=== PATIENT | male | born 1980 | race Two or more races ===

== ENCOUNTER 2024-08-22 18:40 | Inpatient (IN) | payer OTHER ==
[~2024-08-22] VITALS: Ht 172.7 cm; Wt 100.0 kg
[2024-08-22 00:04] VITALS: BP 144/84; PULSE 101; RESP 18; TEMP 102.1; O2SAT 96
--- NOTE | 2024-08-22 18:50 | ED.PDOC ---
History of Present Illness HPI Comments 44-year-old male who comes in with chief complaint of pneumonia. The patient was transferred from [facility]. The patient has a history of being diagnosed with pneumonia times approximately two weeks ago. The patient was then placed on doxycycline and Levaquin. The patient had his blood work done and on 08/11 his white blood cell count was approximately [address]. The patient continued to worsen and so the patient went back in to the emergency department's for evaluation. At that time, the patient's white blood cell [place] [address]. In the emergency department's, the patient had some more blood work done and had an elevated D-dimer. A chest x-ray showed that the patient had bilateral pleural effusions but there was a concern that the patient may have had a PE. The patient had a CT scan done of the chest to rule out PE which indicated that the patient indeed has a pleural effusion but also has what seems to be an empyema. The patient was complaining of right-sided sharp chest pain. The patient also had a COVID test as well as influenza a and B done which were negative. The patient also did an RSV which was negative. Upon arrival, the patient was still having a significant dry cough as well as pain on his chest. Time Seen by MD: 18:45 Reviewed Notes: Nurses Notes, Vice President Supply Chain Notes, Medications, Allergies (Allergies to codeine and penicillin) Allergies: Coded Allergies: Codeine (Verified Allergy, Unknown, 08/22/24) Penicillins (Verified Allergy, Unknown, 08/22/24) Information Source: Patient, Emergency Med Personnel Mode of Arrival: EMS Severity: Moderate Timing: Weeks (Symptoms started a couple of weeks ago.) Duration: Since onset Prehospital treatment: 12 Lead EKG, Ror Engineer, IVF Associated signs and symptoms Associated cough with the shortness a breath and right-sided chest pain Past Medical History PAST MEDICAL HISTORY: HTN, Kidney Stones, Denies Surgical History (Other): Left knee surgery, vasectomy Family History Family History: Family hx of DM, Family hx of Cancer (There was a day is it ulcer is what is three for), Family hx of heart sunil (In his) Social History Smoker: Non-Smoker Alcohol: Occasionally Drugs: Denies Drug Use Lives In: Home Constitutional: denies: chills, diaphoresis, fatigue, fever, malaise, sweats, weakness, others EENTM: denies: blurred vision, double vision, ear bleeding, ear discharge, ear drainage, ear pain, ear ringing, eye pain, eye redness, hearing loss, mouth pain, mouth swelling, nasal discharge, nose bleeding, nose congestion, nose pain, photophobia, tearing, throat pain, throat swelling, voice changes, others Respiratory: reports: cough, shortness of breath; denies: hemoptysis, orthopnea, SOB at rest, SOB with excertion, stridor, wheezing, others Cardiovascular: reports: chest pain; denies: dizzy spells, diaphoresis, Dyspnea on exertion, edema, irregular heart beat, left arm pain, lightheadedness, palpitations, PND, syncope, others Gastrointestinal: denies: abdomen distended, abdominal pain, blood streaked grant wels, constipated, diarrhea, dysphagia, difficulty swallowing, hematemesis, melena, nausea, poor appetite, poor fluid intake, rectal bleeding, rectal pain, vomiting, others Genitourinary: denies: burning, dysuria, flank pain, frequency, hematuria, incontinence, penile discharge, penile sore, pain, testicle pain, testicle swelling, urgency, others Neurological: denies: dizziness, fainting, headache, left sided numbness, left sided weakness, numbness, paresthesia, pre-existing deficit, right sided numbness, right sided weakness, seizure, speech problems, tingling, tremors, weakness, others Musculoskeletal: denies: back pain, gout, joint pain, joint swelling, muscle pain, muscle stiffness, neck pain, others Integumetry: denies: bruises, change in color, change in hair/nails, dryness, laceration, lesions, lumps, rash, wounds, others Allergic/Immunocompromised: denies: Difficulty Healing, Frequent Infections, Hives, Itching, others Hematologic/Lymphatic: denies: anemia, blood clots, easy bleeding, easy bruisin g, swollen glands, others Endocrine: denies: excessive hunger, excessive sweating, excessive thirst, excessive urination, flushing, intolerance to cold, intolerance to heat, unexplained weight gain, unexplained weight loss, others Psychiatric: denies: anxiety, bipolar disorder, depression, hopeless, panic disorder, schizophrenia, sleepless, suicidal, others Physical Exam General Appearance: Moderate Distress HEENT: Normal ENT Inspection, Pharynx Normal, TMs Normal Neck: Full Range of Motion, Non-Tender, Normal, Normal Inspection Respiratory: Chest Non-Tender, Decreased Breath Sounds, No Accessory Muscle Use, Respiratory Distress Cardiovascular: No Edema, No JVD, No Murmur, No Gallop, Tachycardia Breast Exam: Deferred Gastrointestinal: No Organomegaly, Non Tender, No Pulsatile Mass, Normal Bowel Sounds, Soft Genitalia: Deferred Pelvic: Deferred Rectal: Deferred Extremities: No calf tenderness, Normal capillary refill, No pedal edema Musculoskeletal : Apperance: Normal Neurologic: Alert, injection moulding machine operator II-XII nml as Tested, Motor Weakness, Normal Affect, Nor mal Mood, No Sensory Deficits Cerebellar Function: Normal Reflexes: Normal Skin: Dry, Normal Color, Warm Lymphatic: No Adenopathy Was a procedure done? Was a procedure done?: No Differential Dx Considerations may include: Empyema, pneumonia, PE X-Ray, Labs, Meds, VS Vital Signs Date Time Temp Pulse Resp B/P (MAP) Pulse Ox O2 Delivery O2 Flow Rate FiO2 08/22/24 19:01 89 08/22/24 19:00 98.7 87 18 134/78 (96) 96 At this time, the patient is being admitted. An IV Hep-Lock was established. Images Reviewed?: Images reviewed and evaluated by me Time of 1ST Reevaluation: 20:17 Reevaluation 1ST: Unchanged Patient Education/Counseling: Diagnosis, Treatment, Prognosis Family Education/Counseling: No Family Present Departure 1 Departure Time of Disposition: 20:17 Impression: Primary Impression: Empyema Additional Impression: Acute respiratory failure Qualified Codes: J96.01 - Acute respiratory failure with hypoxia Disposition: 09 ADMITTED INPATIENT Admit to: Tele (So the waist IV Lasix and we are going to put down in the ICU then) Condition: Fair Critical Care Note Critical Care Time?: Yes (35 min-critical care time only) Stability Stability form required: Yes Unstable for transfer: Telemetry monitoring (Telemetry monitoring required), ED Physician Assesment (Clinical assesment) Heart Score Heart Score: Heart Score Response (Comments) Value History N/A 0 EKG N/A 0 Age N/A 0 Risk Factors N/A 0 Troponin N/A 0 Total 0 MICHAEL HEARN MD Aug 22, 2024 18:50
[2024-08-22 19:20] VITALS: PULSE 21; RESP 21; O2SAT 91
[2024-08-22 20:00] VITALS: PULSE 73; PULSE 96; RESP 18; O2SAT 96
[2024-08-22 21:05] LABS: Urine Bacteria None Seen /hpf (None Seen)
[2024-08-22 21:15] LABS: Urine Blood Negative /uL (Negative); Urine Clarity Clear (Clear); Urine Color Light-Yellow (Yellow); Urine Protein, UAD Negative (Negative); Urine Specific Gravity 1.042 (1.001-1.035); Urine Urobilinogen Normal (Negative); Urine WBC <1 /hpf (0 - 3); Urine pH 5.5 (5.0-9.0)
[2024-08-22] MEDS ORDERED: VANCOMYCIN PER PHARMACY 0 MG IV SCH (21:45)
[2024-08-22] MEDS ORDERED: NITROGLYCERIN 0.4 MG SL TAB SL PRN (21:45)
[2024-08-22] MEDS ORDERED: ONDANSETRON HCL 4 MG/2 ML VIAL IV PRN (21:45)
[2024-08-22] MEDS ORDERED: TEMAZEPAM 15 MG CAP PO PRN (21:45)
[2024-08-22 21:46] LABS: Basophils # (auto) 0 10 ^3/uL (0-0.2); Basophils % (auto) 0.1 % (0.0-2.0); Eosinophils # (auto) 0.1 10 ^3/uL (0-0.8); Eosinophils % (auto) 0.5 % (0.0-7.0); Hematocrit 36.9 % (41.0-53.0); Hemoglobin 12.4 g/dL (13.5-17.5); Lymphocytes # (auto) 1.7 10 ^3/uL (0.4-5.4); Lymphocytes % (auto) 8.4 % (10.0-50.0); Mean Corpuscular Hemoglobin 30.7 pg (28.0-32.0); Mean Corpuscular Hgb Conc. 33.7 g/dL (32.0-36.0); Mean Corpuscular Volume 91.2 fL (80.0-100.0); Monocytes # (auto) 1.5 10 ^3/uL (0-1.3); Monocytes % (auto) 7.2 % (0.0-12.0); Neutrophils # (auto) 17.3 10 ^3/uL (1.6-8.6); Neutrophils % (auto) 83.8 % (37.0-80.0); Platelet Count (auto) 180 10^3/uL (140-450); Red Blood Cells 4.04 10^6/uL (4.5-5.90); Red Cell Distribution Width 13.4 % (11.8-14.3); White Blood Cell 20.7 10^3/uL (4.4-10.8)
[2024-08-22 22:27] VITALS: BP 145/87; PULSE 106; RESP 19; TEMP 99.4; O2SAT 95
[2024-08-22] MEDS: IPRATROPIUM BROM 0.5 MG/2.5ML INH SOL ONE (22:27)
[2024-08-22] MEDS: ALBUTEROL SULF 2.5 MG/0.5ML(0.5%) NEB SOLN ONE (22:27)
[2024-08-22 22:28] VITALS: O2SAT 95
[2024-08-22 22:36] LABS: Alanine Aminotransferase 45 U/L (7-40); Albumin 3.9 g/dL (3.2-4.8); Alkaline Phosphatase 205 U/L (46-116); Anion Gap 8 (5-15); Aspartate Aminotransferase 22 U/L (13-40); BUN/Creatinine Ratio 9.2 (10.0-20.0); Blood Urea Nitrogen 10 mg/dL (9-23); Calcium 9.7 mg/dL (8.7-10.4); Carbon Dioxide 22 mmol/L (20-31); Chloride 103 mmol/L (98-107); Glucose 91 mg/dL (74-106); Sodium 133 mmol/L (136-145)
[2024-08-22 22:37] LABS: Bilirubin, Total 0.6 mg/dL (0.2-1.0); Total Protein 7.5 g/dL (5.7-8.2)
[2024-08-22] MEDS: levoFLOXacin 500MG 100 ML IV ONE (23:08)
--- NOTE | 2024-08-22 23:56 | DVHINCON2 ---
Date of service: Aug 22, 2024 Referring Physician FREDDY Coronado Reason for Consultation Respiratory distress. History of Present Illness 44-year-old man history of hypertension, nephrolithiasis who presented with a chief complaint of pneumonia. He was transferred from [facility]. He was recently diagnosed with pneumonia two weeks ago. Patient was placed on antibiotics. He had blood work performed that demonstrated leukocytosis. His symptoms began to worsen severe return to emergency department for evaluation. His white count climbed to 21 K. he was found to have an elevated D-dimer. Chest x-ray was notable for pleural effusions. Concern for PE. CT chest was performed that demonstrated no acute pulmonary embolism. Demonstrated pleural effusion. It appeared to be an empyema. COVID, influenza were negative. RSV was also negative. Pulmonary consultation is called for large right pleural effusion. Review of systems: 14 point review of systems is negative unless otherwise noted above. Past medical history: Hypertension, nephrolithiasis, Past surgical history: Left knee surgery, vasectomy Medications: Reviewed Allergies: Codeine, iron, penicillins Family history: No family history of premature CAD. No family history of lung disease Family history notable for cancer. Family history of heart disease. Social history: Nonsmoker. Social alcohol use. No illicit drug use. Lives at home. Allergies: Coded Allergies: Iron (Verified Allergy, Severe, 08/22/24) Codeine (Verified Allergy, Unknown, 08/22/24) Penicillins (Verified Allergy, Unknown, 08/22/24) Home Meds Reported Medications Celecoxib (Celebrex) 100 Mg Cap, 100 MG PO PRN for 30 Days, MG 08/23/24 Sertraline HCl (Sertraline Hydrochloride) 100 Mg Tab, 100 MG PO DAILY, TAB 08/23/24 Amphetamine-Dextroamphetamine (Adderall) 20 Mg Tab, 1 TAB PO DAILY, #30 TAB 08/23/24 Losartan Potassium (Losartan Potassium) 50 Mg Tab, 50 MG PO DAILY for 30 Days, MG 08/23/24 Current Medications Current Medications Medications (Trade) Dose Ordered Sig/Marisol Route PRN Reason Start Time Stop Time Status Last Admin Levofloxacin/ Dextrose 100 ml @ 100 mls/hr DAILY IV 08/23/24 10:00 UNV Vancomycin HCl 0 ml @ 0 mls/hr UD IV 08/22/24 21:45 UNV Albuterol (Ventolin Medneb) 2.5 mg Q6HPRN PRN NEB SHORTNESS OF BREATH 08/22/24 21:45 Ipratropium [place] (Atrovent Medneb) 0.5 mg Q6HPRN PRN NEB SHORTNESS OF BREATH 08/22/24 21:45 Guaifenesin/ Dextromethorphan (Robitussin-Dm Liquid) 10 ml Q4HP PRN PO FOR COUGH 08/22/24 21:45 Temazepam (Restoril) 15 mg QHSP PRN PO FOR INSOMNIA 08/22/24 21:45 Ondansetron HCl (Zofran) 4 mg Q4HP PRN IV NAUSEA / VOMITING 08/22/24 21:45 Acetaminophen (Tylenol Tablet) 650 mg Q6HP PRN PO PAIN SCALE 1-3 OR TEMP>100.4 08/22/24 21:45 Nitroglycerin (Ntrostat Sublingual) 0.4 mg Q5MINP PRN SL FOR CHEST PAIN 08/22/24 21:45 Morphine Sulfate 2 mg Q30M PRN IV FOR CHEST PAIN 08/22/24 21:45 UNV Vital Signs Vital Signs Date Time Temp Pulse Resp B/P (MAP) Pulse Ox O2 Delivery O2 Flow Rate FiO2 08/22/24 23:11 103 19 133/85 (101) 94 08/22/24 22:30 Nasal Cannula* 2 28 08/22/24 22:27 99.4 99.4 Physical Exam Gen.: Patient lying in bed in no apparent distress. On supplemental oxygen. He is breathing comfortably on room air. Head: Normocephalic, atraumatic Eyes: EOMI/PERRLA. Ears: Normal hearing. Normal anatomy. Neck/trachea: Trachea midline, supple. Nose: Normal external anatomy. Mouth: Moist mucous membranes. Chest: Decreased air entry bilaterally. No wheezing or rhonchi. Cardio vascular: Positive S1, positive S2. Regular rate and rhythm. Abdomen: Positive bowel sounds in all 4 quadrants. Soft, non-tender, non- distended. : Deferred. Rectal: Deferred Skin: Warm, dry. Extremities: 2+ radial pulses bilaterally. No lower extremity edema. Neuro: Awake, alert, oriented x3. No gross motor or sensory deficits. Cranial nerves II through XII intact. Gait not assessed. Labs/Diagnostic Data Labs Test 08/22/24 21:19 08/22/24 21:04 Range/Units White Blood Count 20.7 H 4.4-10.8 10^3/uL Red Blood Count 4.04 L 4.5-5.90 10^6/uL Hemoglobin 12.4 L 13.5-17.5 g/dL Hematocrit 36.9 L 41.0-53.0 % Mean Corpuscular Volume 91.2 80.0-100.0 fL Mean Corpuscular Hemoglobin 30.7 28.0-32.0 pg Mean Corpuscular Hemoglobin Concent 33.7 32.0-36.0 g/dL Red Cell Distribution Width 13.4 11.8-14.3 % Platelet Count 180 140-450 10^3/uL Mean Platelet Volume 6.8 L 6.9-10.8 fL Neutrophils (%) (Auto) 83.8 H 37.0-80.0 % Lymphocytes (%) (Auto) 8.4 L 10.0-50.0 % Monocytes (%) (Auto) 7.2 0.0-12.0 % Eosinophils (%) (Auto) 0.5 0.0-7.0 % Basophils (%) (Auto) 0.1 0.0-2.0 % Neutrophils # (Auto) 17.3 H 1.6-8.6 10 ^3/uL Lymphocytes # (Auto) 1.7 0.4-5.4 10 ^3/uL Monocytes # (Auto) 1.5 H 0-1.3 10 ^3/uL Eosinophils # (Auto) 0.1 0-0.8 10 ^3/uL Basophils # (Auto) 0 0-0.2 10 ^3/uL Nucleated Red Blood Cells 0.0 % Sodium Level 133 L 136-145 mmol/L Potassium Level 4.0 3.5-5.1 mmol/L Chloride Level 103 98-107 mmol/L Carbon Dioxide Level 22 20-31 mmol/L Anion Gap 8 5-15 Blood Urea Nitrogen 10 9-23 mg/dL Creatinine 1.09 0.700-1.30 mg/dL Glomerular Filtration Rate Calc 85 >90 mL/min BUN/Creatinine Ratio 9.2 L 10.0-20.0 Serum Glucose 91 74-106 mg/dL Lactic Acid Level 1.5 0.4-2.0 mmol/L Calcium Level 9.7 8.7-10.4 mg/dL Total Bilirubin 0.6 0.2-1.0 mg/dL Aspartate Amino Transferase (AST) 22 13-40 U/L Alanine Aminotransferase (ALT) 45 H 7-40 U/L Alkaline Phosphatase 205 H 46-116 U/L Troponin I High Sensitivity 5 </=54 ng/L B-Type Natriuretic Peptide 13.88 0-100 pg/mL Total Protein 7.5 5.7-8.2 g/dL Albumin 3.9 3.2-4.8 g/dL Urine Color Light-yellow Yellow Urine Clarity Clear Clear Urine pH 5.5 5.0-9.0 Urine Specific [place] 1.042 H 1.001-1.035 Urine Protein Negative Negative Urine Ketones Negative Negative Urine Blood Negative Negative /uL Urine Nitrite Negative Negative Urine Bilirubin Negative Negative Urine Urobilinogen Normal Negative mg/dL Urine Leukocyte Esterase Negative Negative /uL Urine RBC 1 0 - 3 /hpf Urine WBC <1 0 - 3 /hpf Urine Squamous Epithelial Cells Few <5 /hpf Urine Bacteria None seen None Seen /hpf Urine Glucose Normal Normal mg/dL Assessment Impression: Dyspnea secondary to large right pleural effusion Large right pleural effusion Possible empyema Leukocytosis Pneumonia Obesity with a BMI of 33.8 Plan: Recommend small bore chest tube placement. Consult Interventional Radiology for chest tube placement. Send fluid for cultures and cytology. Send for cell count and differential, LDH, pH, glucose, total protein Consider TPase course once chest tube is in place vs Surgical consultation for decortication. Supplemental oxygen on 2 liters/minute via nasal cannula keep O2 saturation above 92%. Antitussives Antibiotics F/u cultures. Monitor renal function Monitor electrolytes Supplement as necessary. Diet and lifestyle modifications for weight reduction given obesity DVT prophylaxis Prognosis: Guarded given multiple comorbidities. Rest of plan per hospitalist and other consultants. Thank you FREDDY Coronado for allowing me to participate in this patient's care. Further recommendations will depend on patient's clinical course. Please do not hesitate to contact me if you have any questions or concerns. This medical document was created using an electronic medical record system with [employer] system. Although this document has been carefully reviewed, there may still be some phonetic and typographical errors. These areas are purely typographical due to imperfections of the software programs, and do not reflect any compromise in the patient's medical care. Plan discussed with: Patient, Other (RN, LOG CUT OFF SAWYER) CARRASQUILLO,AMADOU M MD Aug 22, 2024 23:56
[2024-08-23] VITALS (13 sets, daily range): BP systolic 113–144; BP diastolic 60–84; PULSE 73–102; RESP 16–22; TEMP 97.7–100.8; O2SAT 96–98
[2024-08-23] MEDS: guaiFENesin-DM 100/10mg/5ml SYR PO PRN (00:07)
[2024-08-23] MEDS: ACETAMINOPHEN 325 MG TAB PO PRN (00:19)
[2024-08-23] MEDS ORDERED: LOSA-534 PO (01:17)
[2024-08-23] MEDS ORDERED: SERT-377 PO (01:19)
[2024-08-23] MEDS ORDERED: AMPH20TA2 PO (01:19)
[2024-08-23] MEDS ORDERED: CELE100C82 PO (01:19)
[2024-08-23] MEDS: VANCOMYCIN 1.5GM/300ML IV ONE (01:43)
--- NOTE | 2024-08-23 05:15 | DVHHP2 ---
History of Present Illness Reason for Visit: Shortness of breath History of Present Illness 44-year-old male presents for evaluation of shortness for breath. Patient reports being diagnosed with pneumonia two weeks ago and has completed treatment. He reports continuous shortness for breath and unable to take deep breaths. Reports some right-sided chest pain. He returned yesterday to the emergency department on outside facility was transferred for higher level of care for possible empyema. No other acute complaints reported. Past Medical History Hypertension, kidney stones, depression Past Surgical History Left knee surgery and vasectomy Family History Diabetes mellitus and cancer Smoke: No ALCOHOL: occassional Drugs: None Lives: with Family Review of Systems Review of Systems Review of systems are currently negative otherwise addressed in HPI. Allergies: Coded Allergies: Iron (Verified Allergy, Severe, 08/22/24) Codeine (Verified Allergy, Unknown, 08/22/24) Penicillins (Verified Allergy, Unknown, 08/22/24) Medications Current Medications Medications Dose Ordered Sig/Marisol Route Start Time Stop Time Status Last Admin Dose Admin Levofloxacin/ Dextrose 100 ml @ 100 mls/hr DAILY IV 08/23/24 10:00 UNV Vancomycin HCl 0 ml @ 0 mls/hr UD IV 08/22/24 21:45 UNV Albuterol 2.5 mg Q6HPRN PRN NEB 08/22/24 21:45 Ipratropium [place] 0.5 mg Q6HPRN PRN NEB 08/22/24 21:45 Guaifenesin/ Dextromethorphan 10 ml Q4HP PRN PO 08/22/24 21:45 08/23/24 04:26 10 ML Temazepam 15 mg QHSP PRN PO 08/22/24 21:45 Ondansetron HCl 4 mg Q4HP PRN IV 08/22/24 21:45 Acetaminophen 650 mg Q6HP PRN PO 08/22/24 21:45 08/23/24 00:19 650 MG Nitroglycerin 0.4 mg Q5MINP PRN SL 08/22/24 21:45 Morphine Sulfate 2 mg Q30M PRN IV 08/22/24 21:45 UNV Exam Vital Signs Vital Signs Date Time Temp Pulse Resp B/P (MAP) Pulse Ox O2 Delivery O2 Flow Rate FiO2 08/23/24 01:19 99.5 08/23/24 00:44 102 20 144/84 (104) 98 08/23/24 00:44 Nasal Cannula* 2 28 Exam Gen: 44-year-old male in mild distress Skin: Warm, dry, normal color and texture, no rash. HEENT: Normocephalic atraumatic, mucous membranes moist and pink. Neck: Cervical and supraclavicular nodes normal without enlargement, trachea is midline, thyroid gland is normal without masses. Pulmonary: Diminished breath sounds bilaterally Cardiac: Regular rate and rhythm. No murmur Abdomen: Soft, nontender, nondistended, bowel sounds present all 4 quadrants, no guarding, no rigidity, no organomegaly. Extremities: No cyanosis, clubbing, no edema Neuro: Cranial nerves II through XII grossly intact, normal affect and speech, no focal motor deficits. Labs/Xrays Labs Test 08/22/24 21:19 08/22/24 21:04 Range/Units White Blood Count 20.7 H 4.4-10.8 10^3/uL Red Blood Count 4.04 L 4.5-5.90 10^6/uL Hemoglobin 12.4 L 13.5-17.5 g/dL Hematocrit 36.9 L 41.0-53.0 % Mean Corpuscular Volume 91.2 80.0-100.0 fL Mean Corpuscular Hemoglobin 30.7 28.0-32.0 pg Mean Corpuscular Hemoglobin Concent 33.7 32.0-36.0 g/dL Red Cell Distribution Width 13.4 11.8-14.3 % Platelet Count 180 140-450 10^3/uL Mean Platelet Volume 6.8 L 6.9-10.8 fL Neutrophils (%) (Auto) 83.8 H 37.0-80.0 % Lymphocytes (%) (Auto) 8.4 L 10.0-50.0 % Monocytes (%) (Auto) 7.2 0.0-12.0 % Eosinophils (%) (Auto) 0.5 0.0-7.0 % Basophils (%) (Auto) 0.1 0.0-2.0 % Neutrophils # (Auto) 17.3 H 1.6-8.6 10 ^3/uL Lymphocytes # (Auto) 1.7 0.4-5.4 10 ^3/uL Monocytes # (Auto) 1.5 H 0-1.3 10 ^3/uL Eosinophils # (Auto) 0.1 0-0.8 10 ^3/uL Basophils # (Auto) 0 0-0.2 10 ^3/uL Nucleated Red Blood Cells 0.0 % Sodium Level 133 L 136-145 mmol/L Potassium Level 4.0 3.5-5.1 mmol/L Chloride Level 103 98-107 mmol/L Carbon Dioxide Level 22 20-31 mmol/L Anion Gap 8 5-15 Blood Urea Nitrogen 10 9-23 mg/dL Creatinine 1.09 0.700-1.30 mg/dL Glomerular Filtration Rate Calc 85 >90 mL/min BUN/Creatinine Ratio 9.2 L 10.0-20.0 Serum Glucose 91 74-106 mg/dL Lactic Acid Level 1.5 0.4-2.0 mmol/L Calcium Level 9.7 8.7-10.4 mg/dL Total Bilirubin 0.6 0.2-1.0 mg/dL Aspartate Amino Transferase (AST) 22 13-40 U/L Alanine Aminotransferase (ALT) 45 H 7-40 U/L Alkaline Phosphatase 205 H 46-116 U/L Troponin I High Sensitivity 5 </=54 ng/L B-Type Natriuretic Peptide 13.88 0-100 pg/mL Total Protein 7.5 5.7-8.2 g/dL Albumin 3.9 3.2-4.8 g/dL Urine Color Light-yellow Yellow Urine Clarity Clear Clear Urine pH 5.5 5.0-9.0 Urine Specific [place] 1.042 H 1.001-1.035 Urine Protein Negative Negative Urine Ketones Negative Negative Urine Blood Negative Negative /uL Urine Nitrite Negative Negative Urine Bilirubin Negative Negative Urine Urobilinogen Normal Negative mg/dL Urine Leukocyte Esterase Negative Negative /uL Urine RBC 1 0 - 3 /hpf Urine WBC <1 0 - 3 /hpf Urine Squamous Epithelial Cells Few <5 /hpf Urine Bacteria None seen None Seen /hpf Urine Glucose Normal Normal mg/dL CT angiogram from outside facility showing loculated pleural effusion versus empyema on the right upper lobe. Large pleural effusion with passive atelectasis of much of the right lung Assessment/Plan Assessment/Plan Assessment Possible empyema Large right pleural effusion Leukocytosis Hypertension Plan Admit the patient to telemetry to the hospitalist Radiology consultation Pulmonary consult Levaquin/vancomycin Med nebs Resume home medications Continue treatment per orders. Plan discussed with: Patient My Orders Orders - LUCILA MELGAR AGACNP Procedure Category Date Status Time * Radiologist Consult CONS 08/22/24 Transmitted 20:50 Levofloxacin 500mg PHA 08/23/24 Pending (Levaquin 500mg/ 100m 10:00 Vancomycin Per PHA 08/22/24 Pending Pharmacy 21:45 Albuterol Medneb PHA 08/22/24 In Process (Ventolin Medneb) 21:45 Ipratropium Medneb PHA 08/22/24 In Process (Atrovent Medneb) 21:45 Guaifenesin-Dextromet PHA 08/22/24 In Process Liquid (Robitussin 21:45 *Consult CONS 08/22/24 Transmitted / 21:44 Basic Metabolic Panel LAB 08/23/24 Logged 04:00 Admit ADMIT 08/22/24 Transmitted 21:44 Temazepam (Restoril) PHA 08/22/24 In Process 21:45 Ondansetron Hcl PHA 08/22/24 In Process (Zofran) 21:45 Complete Blood Count LAB 08/23/24 Logged 04:00 Cardiac DIET 08/23/24 Transmitted Diet-2gna,Lofat,Lochol Breakfast Condition: Fair GAB 08/22/24 In Process 21:44 Acetaminophen Tablet PHA 08/22/24 In Process (Tylenol Tablet) 21:45 Bedrest With Bathroom GAB 08/22/24 In Process Privileg 21:44 Nitroglycerin PHA 08/22/24 In Process Sublingual (Ntrostat 21:45 Morphine Sulfate PHA 08/22/24 Pending Injection 21:45 Stat Ekg For Chest GAB 08/22/24 In Process Pain 21:44 Notify Md Of Changes GAB 08/22/24 In Process From Base 21:44 Angular Developer For GAB 08/22/24 In Process 24 Hours 21:44 Emergency Dysrhythmia GAB 08/22/24 In Process Protocol 21:44 Rhythm Strips Once GAB 08/22/24 In Process Every Shift 21:44 Oxygen By Nasal RT 08/22/24 Transmitted Cannula 21:44 Losartan Tablet PHA 08/23/24 Transmitted (Cozaar Tablet) 10:00 Sertraline Hcl PHA 08/23/24 Transmitted (Zoloft) 10:00 Blood Culture CHELSEA 08/23/24 Verified 05:09 Date of Service: Aug 22, 2024 Billing Provider: LUCILA MELGAR Common Visit Codes: [id number] INP/OBS CARE (HIGH) LUCILA MELGAR Aug 23, 2024 05:15
[2024-08-23 06:15] LABS: Basophils # (auto) 0 10 ^3/uL (0-0.2); Basophils % (auto) 0.1 % (0.0-2.0); Eosinophils # (auto) 0 10 ^3/uL (0-0.8); Eosinophils % (auto) 0.2 % (0.0-7.0); Hematocrit 32.9 % (41.0-53.0); Hemoglobin 11.2 g/dL (13.5-17.5); Lymphocytes # (auto) 1.6 10 ^3/uL (0.4-5.4); Lymphocytes % (auto) 8.3 % (10.0-50.0); Mean Corpuscular Hemoglobin 30.8 pg (28.0-32.0); Mean Corpuscular Hgb Conc. 34.2 g/dL (32.0-36.0); Mean Corpuscular Volume 89.9 fL (80.0-100.0); Monocytes # (auto) 1.3 10 ^3/uL (0-1.3); Monocytes % (auto) 6.7 % (0.0-12.0); Neutrophils # (auto) 16.6 10 ^3/uL (1.6-8.6); Neutrophils % (auto) 84.7 % (37.0-80.0); Platelet Count (auto) 171 10^3/uL (140-450); Red Blood Cells 3.66 10^6/uL (4.5-5.90); Red Cell Distribution Width 13.6 % (11.8-14.3); White Blood Cell 19.6 10^3/uL (4.4-10.8)
[2024-08-23 06:27] LABS: Chloride 103 mmol/L (98-107); Potassium 4.1 mmol/L (3.5-5.1); Sodium 131 mmol/L (136-145)
[2024-08-23 06:28] LABS: Anion Gap 5 (5-15); Calcium 9.1 mg/dL (8.7-10.4); Carbon Dioxide 23 mmol/L (20-31)
[2024-08-23 06:33] LABS: BUN/Creatinine Ratio 10.4 (10.0-20.0); Blood Urea Nitrogen 11 mg/dL (9-23); Glucose 134 mg/dL (74-106)
--- NOTE | 2024-08-23 06:51 | ECG ---
[facility] Test Date: 2024-08-22 Test Time: 19:01:22 Pat Name: AKUA PAEZ Department: ER Room: 0288T A Gender: M Quad Stayer: MIN : 1980 Requested By: MICHAEL HEARN Order Number: [id number] Reading MD: Kashif Carbajal Measurements Intervals [place] Rate: 89 P: 29 PA: 161 QRS: -23 QRSD: 92 T: 22 QT: 337 QTc: 410 Interpretive Statements Sinus rhythm Borderline left axis deviation Electronically Signed On 08-24-2024 13:11:34 PDT by Kashif Carbajal Please click the below link to view image of tracing.
[2024-08-23] MEDS: ALBUTEROL SULF 2.5 MG/0.5ML(0.5%) NEB SOLN NEB PRN (08:03)
[2024-08-23] MEDS: IPRATROPIUM BROM 0.5 MG/2.5ML INH SOL NEB PRN (08:03)
[2024-08-23 09:41] LABS: Base Excess -2.3 mmol/L (-2.0-3.0)
--- NOTE | 2024-08-23 10:26 | DVH ---
Procedure: CT CHEST WITHOUT CONTRAST Reason for study/Clinical History: Possible emphysema. Comparison Study: None available at time of dictation. Exam Date: 08/23/2024 09:47 AM TECHNIQUE: Multidetector CT of the chest was performed from the lung apices to the upper abdomen with out the use of intravenous contract. Axial, coronal and sagittal multiplanar reformats were performed . Radiation Dose Information: CT Dose: CTDI volume is 22.43 mGy. Dose-length product is 895.36 mGy*cm The dose indicators for CT are the volume Computed Tomography (CT) Dose Index (CTDIvol) and the Dose Length Product (DLP), and are measured in units of mGy and mGy-cm, respectively. These indicators are not patient dose, but values generated from the CT scanner acquisition factors. The report includes radiation exposure data for exposures received during this examination. Radiation optimization: All CT scans at this facility use at least one of these dose optimization lazaro hniques: automated exposure control mA and/or kV adjustment per patient size (includes targeted exam s where dose is matched to clinical indication) or iterative reconstruction. FINDINGS Lungs: There is right lung volume loss with moderate elevation of the right hemidiaphragm. There is l arge loculated right pleural effusion with pockets of pleural fluid along both the anterior and poste rior right micheline thorax. There is likely compressive atelectasis in the right lower and middle lobes a nd to a lesser degree in the right upper lobe. The left lung is clear. There is no left-sided pleural effusion. Heart/Vascular Structures: Normal heart size. No pericardial effusion. Lymph Nodes: There is a nonspecific prominent right paratracheal mediastinal lymph node measuring 1.5 cm in short axis. There is no axillary lymphadenopathy. Musculoskeletal: No acute osseous abnormality. Soft tissues: Unremarkable. Upper abdomen: There is a 3 mm calculus in the midpole of the right kidney. The adrenal glands appear within normal limits. There is hyperdense sludge within the gallbladder. IMPRESSION: 1. Right lung volume loss with large loculated right pleural effusion. There is compressive atelectas is in the right lower and middle lobes and to a lesser degree in the right upper lobe. The left lung is clear. 2. Nonspecific prominent right paratracheal mediastinal lymph node measuring 1.5 cm. This may represe nt a reactive lymph node. Comparison with any available prior CT chest studies is recommended. HS:Y
--- NOTE | 2024-08-23 10:52 | DVH ---
CHEST RADIOGRAPH Indication:dyspnea Technique: Single frontal view of the chest was obtained COMPARISON: None FINDINGS: Lines and Tubes: The current examination does not reveal the presence of any lines or tubes. Lungs: The right lung shows severe multifocal airspace disease. The left lung appears clear. Pleura: There is a small right-sided pleural effusion as a possibility. No evidence of pneumothorax i s identified. Cardiomediastinal contours: The cardiomediastinal contours are unremarkable. Bones: No acute abnormalities are detected in the bony structures. IMPRESSION: Multifocal severe right lung airspace disease. Possible small right pleural effusion.
[2024-08-23] MEDS: LOSARTAN POTASSIUM 50 MG TAB PO SCH (10:57)
[2024-08-23] MEDS: SERTRALINE HCL 50 MG TAB PO SCH (10:57)
[2024-08-23] MEDS: VANCOMYCIN 1GM/200ML PREMIX 200 ML IV SCH (10:58)
[2024-08-23] MEDS: levoFLOXacin 500MG 100 ML IV SCH (11:00)
[2024-08-23] MEDS: LIDOCAINE 2%HCL (LOCAL ANESTH.) INJ 10ml MDV ONE (12:05)
[2024-08-23 12:55] LABS: INR 1.51 (0.9-1.15); Prothrombin Time 15.5 sec (9.3-11.8)
[2024-08-23 13:27] LABS: INR 1.48 (0.9-1.15); Partial Thromboplastin Time 35.3 SEC (24.5-34.5); Prothrombin Time 15.2 sec (9.3-11.8)
[2024-08-23] MEDS: fentaNYL CITRATE 100 MCG/2 ML VL IV ONE (14:00)
[2024-08-23] MEDS: MIDAZOLAM HCL 2MG/2ML 2ml VIAL (1mg/ml) IV ONE (14:00)
[2024-08-23] MEDS: fentaNYL CITRATE 100 MCG/2 ML VL ONE (14:06)
[2024-08-23] MEDS: MIDAZOLAM HCL 2MG/2ML 2ml VIAL (1mg/ml) ONE (14:06)
--- NOTE | 2024-08-23 15:15 | DVH ---
Procedure: XY CHEST PORTABLE 08/23/2024 02:46 PM Indication: POST CHEST TUBE. Comparison: XY CHEST XRAY 1 VIEW on DOS: 08/23/24 TECHNIQUE: XY CHEST PORTABLE FINDINGS: Medical devices: None. Cardiomediastinal: The heart is normal in size. Pulmonary vasculature is within normal limits. Lungs: There is interval placement of a small bore right pleural drainage catheter with the tip proje cting over medial aspect of the right lower hemithorax. Persistent diffuse hazy opacity over the rig ht hemithorax noted. No pneumothorax. Bones/soft tissues: No acute abnormality is noted. IMPRESSION: 1. Interval placement of small bore right pleural drainage catheter with no evidence of pneumothorax. Persistent opacification of the right lung noted.
--- NOTE | 2024-08-23 15:20 | DVH ---
XAM: CT-guided placement of right chest tube HISTORY: Loculated right pleural effusion Consent: Informed written consent was obtained from the patient. Anesthesia: 1% lidocaine local. Intravenous fentanyl and Versed for conscious sedation administered a nd monitored by the interventional radiology nurse under the supervision of dr. Chapito wiseman. Gary purcell conscious sedation time was 45 minutes. Vital signs were continuously monitored. Technique: With the patient supine axial CT images of the chest were obtained. The right pleural effu marshal was localized. Skin was prepped and draped in the usual sterile fashion. A [address] was then advanced until fluid was aspirated. Fluid sample was sent for culture. A wire was advanc ed through the catheter. Sequential dilatation of the tract was performed and a 10 Georgian locking pig tail drainage catheter was placed. Final CT images were obtained. The catheter was secured at the ski n and connected to Pleur-evac drainage. The patient tolerated procedure well without any immediate co mplications. IMPRESSION: 1. Successful CT-guided placement of right chest tube. Continued pleural vac drainage recommended.
--- NOTE | 2024-08-23 15:42 | DVHPN2 ---
Progress Note Date Seen: Aug 23, 2024 Medical Necessity Reason Pt with a Central, PICC or Fol: No Subjective Patient reports: No new complaints Review of Systems: HEENT:Normal, CVS:Normal, RESPIRATORY:Normal, GI:Normal, :Normal, MSK:Normal, NEURO:Normal Objective vital signs Vital Sign Date Time Temp Pulse Resp B/P (MAP) Pulse Ox O2 Delivery O2 Flow Rate FiO2 08/23/24 14:06 122/78 08/23/24 10:00 96 Nasal Cannula* 4 36 08/23/24 09:00 99.4 98 20 99.4 Total Intake and Output 08/22/24 08/22/24 08/23/24 14:59 22:59 06:59 Intake Total 350 ml Balance 350 ml medications Current Medications Medications Dose Ordered Sig/Marisol Route Start Time Stop Time Status Last Admin Dose Admin Levofloxacin/ Dextrose 100 ml @ 100 mls/hr DAILY@1100 IV 08/23/24 11:00 Vancomycin HCl 0 ml @ 0 mls/hr UD IV 08/22/24 21:45 Albuterol 2.5 mg Q6HPRN PRN NEB 08/22/24 21:45 08/23/24 08:03 2.5 MG Ipratropium [place] 0.5 mg Q6HPRN PRN NEB 08/22/24 21:45 08/23/24 08:03 0.5 MG Guaifenesin/ Dextromethorphan 10 ml Q4HP PRN PO 08/22/24 21:45 08/23/24 04:26 10 ML Temazepam 15 mg QHSP PRN PO 08/22/24 21:45 Ondansetron HCl 4 mg Q4HP PRN IV 08/22/24 21:45 Acetaminophen 650 mg Q6HP PRN PO 08/22/24 21:45 08/23/24 00:19 650 MG Nitroglycerin 0.4 mg Q5MINP PRN SL 08/22/24 21:45 Morphine Sulfate 2 mg Q30M PRN IV 08/22/24 21:45 UNV Losartan Potassium 50 mg DAILY PO 08/23/24 10:00 08/23/24 10:57 50 MG Sertraline HCl 100 mg DAILY PO 08/23/24 10:00 08/23/24 10:57 100 MG Vancomycin HCl 200 ml @ 200 mls/hr Q8H IV 08/23/24 10:00 08/23/24 10:58 200 MLS/HR Examination: GENERAL:Normal, HEENT:Normal, NECK:Normal, LUNGS:Normal, LUNGS:Abnormal (on oxygen, right chest tube), CVS:Normal, ABDOMEN:Normal, MSK:Normal, SKIN:Normal, NEURO:Normal, :Normal laboratory and microbiology Laboratory Tests 08/23/24 05:34 Test 08/23/24 05:34 Range/Units Serum Glucose 134 H 74-106 mg/dL Microbiology Date/Time Source Procedure Growth Status 08/23/24 15:14 Pleural Fluid Ordered Problem List/Assessment/Plan Problem List/Assessment/Plan #1 acute resp failure: cont oxygen #2 right empyema/pneumonia with sepsis: s/p chest tube placement, iv antibiotics #3 obesity #4 htn #5 depression Plan discussed with: Patient, Spouse My Orders My Orders Orders - LUCILA SAHNI MD Procedure Category Date Status Time Ct Guidance For CT 08/23/24 Resulted Needle Placeme 12:[address] 08/23/24 Resulted 12:01 Chest Portable XY 08/23/24 Resulted 14:41 Date of Service: Aug 23, 2024 Billing Provider: LUCILA SAHNI MD Common Visit Codes: [id number] INP/OBS CARE(HIGH) LUCILA SAHNI MD Aug 23, 2024 15:42
[2024-08-23] MEDS ORDERED: KETOROLAC TROMETH 30 MG/ML 1ML VIAL IV PRN (15:45)
[2024-08-23] MEDS: SODIUM CHLORIDE 0.9% 1,000 ML IV SCH (15:45)
[2024-08-24] VITALS (12 sets, daily range): BP systolic 119–152; BP diastolic 65–98; PULSE 84–99; RESP 16–20; TEMP 97.7–99.7; O2SAT 95–97
--- NOTE | 2024-08-24 06:21 | DVH ---
CHEST RADIOGRAPH Indication:right pneumonia Technique: Single frontal view of the chest was obtained COMPARISON: XY CHEST PORTABLE on DOS: 08/23/24, XY CHEST XRAY 1 VIEW on DOS: 08/23/24 FINDINGS: Lines and Tubes: Right chest tube in satisfactory position. Lungs: Pulmonary vascular congestion. Right lower lobe airspace disease. Pleura: No effusion. No pneumothorax. Cardiomediastinal contours: Unremarkable Bones: Unremarkable IMPRESSION: Slight interval improvement in aeration of the right lung post chest tube placement.
[2024-08-24 07:16] LABS: Basophils # (auto) 0 10 ^3/uL (0-0.2); Basophils % (auto) 0.2 % (0.0-2.0); Eosinophils # (auto) 0.1 10 ^3/uL (0-0.8); Eosinophils % (auto) 0.4 % (0.0-7.0); Hematocrit 32.6 % (41.0-53.0); Hemoglobin 11.2 g/dL (13.5-17.5); Lymphocytes # (auto) 1.5 10 ^3/uL (0.4-5.4); Lymphocytes % (auto) 9.6 % (10.0-50.0); Mean Corpuscular Hemoglobin 30.6 pg (28.0-32.0); Mean Corpuscular Hgb Conc. 34.3 g/dL (32.0-36.0); Mean Corpuscular Volume 89.2 fL (80.0-100.0); Monocytes # (auto) 1.3 10 ^3/uL (0-1.3); Monocytes % (auto) 8.7 % (0.0-12.0); Neutrophils # (auto) 12.5 10 ^3/uL (1.6-8.6); Neutrophils % (auto) 81.1 % (37.0-80.0); Platelet Count (auto) 141 10^3/uL (140-450); Red Blood Cells 3.65 10^6/uL (4.5-5.90); Red Cell Distribution Width 13.7 % (11.8-14.3); White Blood Cell 15.4 10^3/uL (4.4-10.8)
[2024-08-24 07:33] LABS: Alanine Aminotransferase 57 U/L (7-40); Albumin 3.4 g/dL (3.2-4.8); Alkaline Phosphatase 204 U/L (46-116); Anion Gap 7 (5-15); Aspartate Aminotransferase 49 U/L (13-40); BUN/Creatinine Ratio 11.3 (10.0-20.0); Bilirubin, Total 0.5 mg/dL (0.2-1.0); Blood Urea Nitrogen 12 mg/dL (9-23); Carbon Dioxide 25 mmol/L (20-31); Chloride 100 mmol/L (98-107); Glucose 96 mg/dL (74-106); Potassium 4.1 mmol/L (3.5-5.1); Sodium 132 mmol/L (136-145); Total Protein 6.7 g/dL (5.7-8.2)
[2024-08-24] MEDS: HYDROcodone-ACET 5/325MG TAB PO PRN (09:30)
--- NOTE | 2024-08-24 15:53 | DVHPN2 ---
Progress Note Date Seen: Aug 24, 2024 Medical Necessity Reason Pt with a Central, PICC or Fol: No Subjective Patient reports: No new complaints Review of Systems: HEENT:Normal, CVS:Normal, RESPIRATORY:Normal, GI:Normal, :Normal, MSK:Normal, NEURO:Normal Objective vital signs Vital Sign Date Time Temp Pulse Resp B/P (MAP) Pulse Ox O2 Delivery O2 Flow Rate FiO2 08/24/24 12:29 98.6 84 18 121/71 (88) 97 98.6 08/24/24 10:00 Nasal Cannula 2.0 08/24/24 10:00 28 Total Intake and Output 08/23/24 08/23/24 08/24/24 15:00 23:00 07:00 Intake Total 300 ml 700 ml 1500 ml Output Total 1500 ml Balance 300 ml 700 ml 0 ml medications Current Medications Medications Dose Ordered Sig/Marisol Route Start Time Stop Time Status Last Admin Dose Admin Levofloxacin/ Dextrose 100 ml @ 100 mls/hr DAILY@1100 IV 08/23/24 11:00 08/24/24 11:00 100 MLS/HR Vancomycin HCl 0 ml @ 0 mls/hr UD IV 08/22/24 21:45 Albuterol 2.5 mg Q6HPRN PRN NEB 08/22/24 21:45 08/23/24 08:03 2.5 MG Ipratropium [place] 0.5 mg Q6HPRN PRN NEB 08/22/24 21:45 08/23/24 08:03 0.5 MG Guaifenesin/ Dextromethorphan 10 ml Q4HP PRN PO 08/22/24 21:45 08/23/24 04:26 10 ML Temazepam 15 mg QHSP PRN PO 08/22/24 21:45 Ondansetron HCl 4 mg Q4HP PRN IV 08/22/24 21:45 Acetaminophen 650 mg Q6HP PRN PO 08/22/24 21:45 08/23/24 00:19 650 MG Nitroglycerin 0.4 mg Q5MINP PRN SL 08/22/24 21:45 Morphine Sulfate 2 mg Q30M PRN IV 08/22/24 21:45 Losartan Potassium 50 mg DAILY PO 08/23/24 10:00 08/24/24 09:30 50 MG Sertraline HCl 100 mg DAILY PO 08/23/24 10:00 08/24/24 09:30 100 MG Vancomycin HCl 200 ml @ 200 mls/hr Q8H IV 08/23/24 10:00 08/24/24 09:30 200 MLS/HR Morphine Sulfate 2 mg Q4HPRN PRN IV 08/23/24 15:45 Sodium Chloride 1,000 ml @ 75 mls/hr [id number] IV 08/23/24 15:45 08/24/24 05:04 75 MLS/HR Ketorolac Tromethamine 15 mg Q6HPRN PRN IV 08/23/24 15:45 08/28/24 15:44 Acetaminophen/ Hydrocodone Bitart 1 tab Q6HPRN PRN PO 08/23/24 15:45 08/24/24 09:30 1 TAB Patient Own Medication 1 TID PRN PO 08/24/24 13:15 Examination: GENERAL:Normal, HEENT:Normal, NECK:Normal, LUNGS:Normal, LUNGS:Abnormal (right chest tube), CVS:Normal, ABDOMEN:Normal, MSK:Normal, SKIN:Normal, NEURO:Normal, :Normal laboratory and microbiology Laboratory Tests 08/24/24 05:40 Test 08/24/24 05:40 Range/Units Serum Glucose 96 74-106 mg/dL Microbiology Date/Time Source Procedure Growth Status 08/23/24 15:00 Pleural Fluid Gram Stain - Final Resulted 08/23/24 15:00 Pleural Fluid Body Fluid Culture - Preliminary Resulted 08/23/24 05:34 Blood Blood Culture - Preliminary NO GROWTH AFTER 24 HOURS OF INCUBATION. Resulted Problem List/Assessment/Plan Problem List/Assessment/Plan #1 acute resp failure: cont oxygen #2 right empyema/pneumonia with sepsis: s/p chest tube placement, iv antibiotics #3 obesity #4 htn #5 depression Plan discussed with: Patient, Spouse My Orders My Orders Orders - LUCILA SAHNI MD Procedure Category Date Status Time Patients Own PHA 08/24/24 In Process Medication 13:15 Incentive Spirometry ORDERS 08/24/24 Transmitted Q 1hr 15:48 Discontinue Tele GAB 08/24/24 Transmitted 15:48 Transfer Orders XFER 08/24/24 Transmitted 15:48 Complete Blood Count LAB 08/25/24 Verified 06:00 Comprehensive LAB 08/25/24 Verified Metabolic Panel 06:00 Date of Service: Aug 24, 2024 Billing Provider: LUCILA SAHNI MD Common Visit Codes: [id number] INP/OBS CARE(HIGH) LUCILA SAHNI MD Aug 24, 2024 15:53
[2024-08-24] MEDS: BENZONATATE 100MG CAPSULE PO PRN (16:52)
[2024-08-25] VITALS (11 sets, daily range): BP systolic 115–128; BP diastolic 65–74; PULSE 64–97; RESP 16–20; TEMP 98–99.5; O2SAT 92–98
[2024-08-25 08:12] LABS: Basophils # (auto) 0 10 ^3/uL (0-0.2); Basophils % (auto) 0.3 % (0.0-2.0); Eosinophils # (auto) 0.1 10 ^3/uL (0-0.8); Eosinophils % (auto) 0.6 % (0.0-7.0); Hematocrit 32.4 % (41.0-53.0); Hemoglobin 10.8 g/dL (13.5-17.5); Lymphocytes # (auto) 1.1 10 ^3/uL (0.4-5.4); Lymphocytes % (auto) 8.7 % (10.0-50.0); Mean Corpuscular Hgb Conc. 33.3 g/dL (32.0-36.0); Mean Corpuscular Volume 90.1 fL (80.0-100.0); Monocytes % (auto) 8.1 % (0.0-12.0); Neutrophils # (auto) 10.4 10 ^3/uL (1.6-8.6); Neutrophils % (auto) 82.3 % (37.0-80.0); Platelet Count (auto) 133 10^3/uL (140-450); Red Blood Cells 3.59 10^6/uL (4.5-5.90); Red Cell Distribution Width 13.5 % (11.8-14.3); White Blood Cell 12.6 10^3/uL (4.4-10.8)
[2024-08-25 08:38] LABS: Alanine Aminotransferase 91 U/L (7-40); Albumin 3.3 g/dL (3.2-4.8); Alkaline Phosphatase 216 U/L (46-116); Anion Gap 7 (5-15); Aspartate Aminotransferase 61 U/L (13-40); BUN/Creatinine Ratio 11.5 (10.0-20.0); Bilirubin, Total 0.4 mg/dL (0.2-1.0); Blood Urea Nitrogen 11 mg/dL (9-23); Carbon Dioxide 25 mmol/L (20-31); Chloride 102 mmol/L (98-107); Glucose 110 mg/dL (74-106); Sodium 134 mmol/L (136-145); Total Protein 6.5 g/dL (5.7-8.2)
--- NOTE | 2024-08-25 09:25 | DVH ---
CHEST RADIOGRAPH Indication:right pneumonia Technique: Single frontal view of the chest was obtained COMPARISON: XY CHEST PORTABLE on DOS: 08/24/24, XY CHEST PORTABLE on DOS: 08/23/24, XY CHEST XRAY 1 V IEW on DOS: 08/23/24 FINDINGS: Lines and Tubes: Right chest tube in-situ. Lungs: Pulmonary vascular congestion. Right mid and lower lobe airspace disease. Pleura: No effusion. No pneumothorax. Cardiomediastinal contours: Unremarkable Bones: Unremarkable IMPRESSION: No significant interval change.
--- NOTE | 2024-08-25 14:04 | DVHPN2 ---
Subjective Patient continues to report having nonproductive cough. Reviewed: Care Plan, H&P, Labs, Medications Changes from previous H/P or p: No Changes General: Per HPI Objective Vitals Vital Signs Date Time Temp Pulse Resp B/P (MAP) Pulse Ox O2 Delivery O2 Flow Rate FiO2 08/25/24 12:36 98.0 84 18 115/65 (82) 97 98.0 08/25/24 10:00 Nasal Cannula 4.0 08/25/24 10:00 36 Intake/Output Intake and Output 08/25/24 07:00 Intake Total 3200 ml Output Total 2600 ml Balance 600 ml Intake Oral 2700 ml IV Total 500 ml Output Urine Total 2600 ml # Bowel Movements 2 General Appearance: Alert, Oriented X3, Cooperative, mild distress HEENT: Atraumatic, PERRLA Lungs: Other (Decreased breath sound in right lung. Pigtail chest tube to 30 mm of suctioned with minimal serous fluid noted) Cardiovascular: Normal S1, Normal S2 Abdomen: Normal bowel sounds Rectal: Normal inspection Genitourinary: No Apparent Abnormalities Musculoskeletal: Normal sensory function, Normal motor function Psych/Mental Status: Mental status NL, Mood NL Medications Current Medications Medications Dose Ordered Sig/Marisol Route Start Time Stop Time Status Last Admin Dose Admin Levofloxacin/ Dextrose 100 ml @ 100 mls/hr DAILY@1100 IV 08/23/24 11:00 08/24/24 11:00 100 MLS/HR Vancomycin HCl 0 ml @ 0 mls/hr UD IV 08/22/24 21:45 Albuterol 2.5 mg Q6HPRN PRN NEB 08/22/24 21:45 08/24/24 22:27 2.5 MG Ipratropium [place] 0.5 mg Q6HPRN PRN NEB 08/22/24 21:45 08/24/24 22:26 0.5 MG Guaifenesin/ Dextromethorphan 10 ml Q4HP PRN PO 08/22/24 21:45 08/23/24 04:26 10 ML Temazepam 15 mg QHSP PRN PO 08/22/24 21:45 Ondansetron HCl 4 mg Q4HP PRN IV 08/22/24 21:45 Acetaminophen 650 mg Q6HP PRN PO 08/22/24 21:45 08/23/24 00:19 650 MG Nitroglycerin 0.4 mg Q5MINP PRN SL 08/22/24 21:45 Morphine Sulfate 2 mg Q30M PRN IV 08/22/24 21:45 Losartan Potassium 50 mg DAILY PO 08/23/24 10:00 08/25/24 10:17 50 MG Sertraline HCl 100 mg DAILY PO 08/23/24 10:00 08/25/24 10:16 100 MG Vancomycin HCl 200 ml @ 200 mls/hr Q8H IV 08/23/24 10:00 08/25/24 10:00 200 MLS/HR Morphine Sulfate 2 mg Q4HPRN PRN IV 08/23/24 15:45 Sodium Chloride 1,000 ml @ 75 mls/hr [id number] IV 08/23/24 15:45 08/24/24 05:04 75 MLS/HR Ketorolac Tromethamine 15 mg Q6HPRN PRN IV 08/23/24 15:45 08/28/24 15:44 Acetaminophen/ Hydrocodone Bitart 1 tab Q6HPRN PRN PO 08/23/24 15:45 08/25/24 00:14 1 TAB Patient Own Medication 1 TID PRN PO 08/24/24 13:15 08/25/24 12:28 1 Guaifenesin/ Dextromethorphan 10 ml Q4HP PRN PO 08/25/24 13:30 Laboratory Results Laboratory Tests 08/25/24 07:03 Chemistry Test 08/25/24 07:03 Albumin 3.3 g/dL (3.2-4.8) Calcium Level 9.0 mg/dL (8.7-10.4) Total Protein 6.5 g/dL (5.7-8.2) LFT Test 08/25/24 07:03 Alanine Aminotransferase (ALT) 91 U/L (7-40) H Alkaline Phosphatase 216 U/L (46-116) H Aspartate Amino Transferase (AST) 61 U/L (13-40) H Total Bilirubin 0.4 mg/dL (0.2-1.0) Urinalysis Test 08/22/24 21:04 Urine Color Light-yellow (Yellow) Urine Clarity Clear (Clear) Urine pH 5.5 (5.0-9.0) Urine Specific [place] 1.042 (1.001-1.035) Urine Protein Negative (Negative) Urine Ketones Negative (Negative) Urine Blood Negative /uL (Negative) Urine Nitrite Negative (Negative) Urine Bilirubin Negative (Negative) Urine Urobilinogen Normal mg/dL (Negative) Urine Leukocyte Esterase Negative /uL (Negative) Urine RBC 1 /hpf (0 - 3) Urine WBC <1 /hpf (0 - 3) Urine Squamous Epithelial Cells Few /hpf (<5) Urine Bacteria None seen /hpf (None Seen) Urine Glucose Normal mg/dL (Normal) Microbiology Microbiology Date/Time Source Procedure Growth Status 08/23/24 15:00 Pleural Fluid Gram Stain - Final Resulted 08/23/24 15:00 Pleural Fluid Body Fluid Culture - Preliminary Resulted 08/23/24 05:34 Blood Blood Culture - Preliminary NO GROWTH AFTER 48 HOURS OF INCUBATION. Resulted Labs and/or images reviewed: Labs reviewed by me, Image(s) reviewed by me Assessment/Plan Assessment/Plan Impression: -parapneumonic infusion, community-acquired pneumonia, questionable aspiration etiology -right pleural effusion, rule out empyema -obesity -sepsis -acute hypoxic respiratory failure -hypertension -depression Plan: -chest tube reviewed with minimal secretions. Chest x-ray also noting no improvement on AP view. Repeat CT scan -consider surgical consultation for large bore chest tube versus thoracotomy if empyema suspected -continue current antibiotic therapy with vancomycin and Levaquin -NSAIDs -O2 supplementation to keep saturation greater than 92% -continue with Tessalon Perles. Patient continues to have uncontrolled coughing. Start Robitussin DM in addition -repeat labs in a.m. Total time spent with patient discussing and formulating plan of care: 35 minutes. This medical document was created using an electronic medical record system with [employer] dictation system. Although this document has been carefully reviewed, there may still be some phonetic and typographical errors. These areas are purely typographical due to imperfections of the software programs, and do not reflect any compromise in the patient's medical care. Plan discussed with: Patient, Spouse, Other (RN) My Orders Orders - ERENDIRA SANCHES NP Procedure Category Date Status Time Chest Without Contrast CT 08/25/24 Logged 13:30 Guaifenesin-Dextromet PHA 08/25/24 In Process Liquid (Robitussin 13:30 Date of Service: Aug 25, 2024 Billing Provider: ERENDIRA SANCHES NP Common Visit Codes: [id number] INP/OBS CARE(HIGH) ERENDIRA SANCHES NP Aug 25, 2024 14:04
--- NOTE | 2024-08-25 15:24 | DVH ---
Procedure: CT CHEST WITHOUT CONTRAST Reason for study/Clinical History: Right Empyema Comparison Study: None available at time of dictation. Exam Date: 08/25/2024 01:55 PM TECHNIQUE: Multidetector CT of the chest was performed from the lung apices to the upper abdomen with out the use of intravenous contract. Axial, coronal and sagittal multiplanar reformats were performed . Radiation Dose Information: CT Dose: CTDI volume is 21.27 mGy. Dose-length product is 838.78 mGy*cm The dose indicators for CT are the volume Computed Tomography (CT) Dose Index (CTDIvol) and the Dose Length Product (DLP), and are measured in units of mGy and mGy-cm, respectively. These indicators are not patient dose, but values generated from the CT scanner acquisition factors. The report includes radiation exposure data for exposures received during this examination. FINDINGS: Lower neck: Normal thyroid. Lungs: Subpleural ground glass opacity in the left upper lobe. Patchy consolidation in the right lung . In the right anterior lung there is a fluid and air collection measuring up to 71 mm. Heart/Vascular Structures: Normal heart size. No pericardial effusion. Lymph Nodes: Mediastinal and right higher lymph adenopathy. Pleura: There is a moderate right pleural effusion with a pigtail catheter in place. Musculoskeletal: No acute osseous abnormality. Soft tissues: Normal. Upper abdomen: Limited portions of the upper abdomen are unremarkable. IMPRESSION: 1. Right-sided pneumonia with an area in the anterior right lung which could represent a lung abscess or emphysema. Moderate right pleural effusion with a pigtail catheter in place. Mediastinal and righ t hilar lymphadenopathy. Clinical correlation and continued follow-up is recommended. Consider draina ge of the collection in the anterior right lung. Radiation optimization: All CT scans at this facility use at least one of these dose optimization lazaro hniques: automated exposure control mA and/or kV adjustment per patient size (includes targeted exam s where dose is matched to clinical indication) or iterative reconstruction. HS:Y
[2024-08-25] MEDS: VANCOMYCIN 1.5GM/300ML 300 ML IV SCH (18:22)
[2024-08-25] MEDS: guaiFENesin-DM 100/10mg/5ml SYR PO PRN (21:25)
[2024-08-26] VITALS (9 sets, daily range): BP systolic 115–127; BP diastolic 65–76; PULSE 66–96; RESP 14–18; TEMP 97.9–99.9; O2SAT 93–99
--- NOTE | 2024-08-26 22:14 | DVHPN2 ---
Subjective The patient seen and examined at bedside. at bedside. The patient's was upset. She said they have been sitting here for couple day nothing happened. The patient does have a pigtail chest tube placed. General surgeon, Dr. Wilkins has seen the patient Reviewed: Care Plan, H&P, Labs, Medications Changes from previous H/P or p: No Changes General: Per HPI Objective Vitals Vital Signs Date Time Temp Pulse Resp B/P (MAP) Pulse Ox O2 Delivery O2 Flow Rate FiO2 08/26/24 20:02 95 Nasal Cannula 2.0 08/26/24 20:02 28 08/26/24 17:00 99.1 90 14 115/65 (82) 99.1 Intake/Output Intake and Output 08/26/24 07:00 Intake Total 2000 ml Output Total 1800 ml Balance 200 ml Intake Oral 1700 ml IV Total 300 ml Output Urine Total 1800 ml # Voids 5 # Bowel Movements 1 General Appearance: Alert, Oriented X3, Cooperative, mild distress HEENT: Atraumatic, PERRLA Lungs: Other (Decreased breath sound in right lung. Pigtail chest tube to 30 mm of suctioned with minimal serous fluid noted) Cardiovascular: Normal S1, Normal S2 Abdomen: Normal bowel sounds Rectal: Normal inspection Genitourinary: No Apparent Abnormalities Musculoskeletal: Normal sensory function, Normal motor function Psych/Mental Status: Mental status NL, Mood NL Medications Current Medications Medications Dose Ordered Sig/Marisol Route Start Time Stop Time Status Last Admin Dose Admin Levofloxacin/ Dextrose 100 ml @ 100 mls/hr DAILY@1100 IV 08/23/24 11:00 08/26/24 11:11 100 MLS/HR Vancomycin HCl 0 ml @ 0 mls/hr UD IV 08/22/24 21:45 Albuterol 2.5 mg Q6HPRN PRN NEB 08/22/24 21:45 08/24/24 22:27 2.5 MG Ipratropium [place] 0.5 mg Q6HPRN PRN NEB 08/22/24 21:45 08/24/24 22:26 0.5 MG Temazepam 15 mg QHSP PRN PO 08/22/24 21:45 Ondansetron HCl 4 mg Q4HP PRN IV 08/22/24 21:45 Acetaminophen 650 mg Q6HP PRN PO 08/22/24 21:45 08/23/24 00:19 650 MG Nitroglycerin 0.4 mg Q5MINP PRN SL 08/22/24 21:45 Morphine Sulfate 2 mg Q30M PRN IV 08/22/24 21:45 Losartan Potassium 50 mg DAILY PO 08/23/24 10:00 08/26/24 09:32 50 MG Sertraline HCl 100 mg DAILY PO 08/23/24 10:00 08/26/24 09:32 100 MG Morphine Sulfate 2 mg Q4HPRN PRN IV 08/23/24 15:45 Sodium Chloride 1,000 ml @ 75 mls/hr [id number] IV 08/23/24 15:45 08/26/24 11:11 75 MLS/HR Ketorolac Tromethamine 15 mg Q6HPRN PRN IV 08/23/24 15:45 08/28/24 15:44 Acetaminophen/ Hydrocodone Bitart 1 tab Q6HPRN PRN PO 08/23/24 15:45 08/26/24 21:46 1 TAB Patient Own Medication 1 TID PRN PO 08/24/24 13:15 08/26/24 21:46 1 Guaifenesin/ Dextromethorphan 10 ml Q4HP PRN PO 08/25/24 13:30 08/26/24 20:48 10 ML Vancomycin HCl 300 ml @ 200 mls/hr Q8H IV 08/25/24 18:00 08/26/24 18:03 200 MLS/HR Laboratory Results Laboratory Tests 08/25/24 07:03 08/26/24 17:10 Urinalysis Test 08/22/24 21:04 Urine Color Light-yellow (Yellow) Urine Clarity Clear (Clear) Urine pH 5.5 (5.0-9.0) Urine Specific [place] 1.042 (1.001-1.035) Urine Protein Negative (Negative) Urine Ketones Negative (Negative) Urine Blood Negative /uL (Negative) Urine Nitrite Negative (Negative) Urine Bilirubin Negative (Negative) Urine Urobilinogen Normal mg/dL (Negative) Urine Leukocyte Esterase Negative /uL (Negative) Urine RBC 1 /hpf (0 - 3) Urine WBC <1 /hpf (0 - 3) Urine Squamous Epithelial Cells Few /hpf (<5) Urine Bacteria None seen /hpf (None Seen) Urine Glucose Normal mg/dL (Normal) Microbiology Microbiology Date/Time Source Procedure Growth Status 08/23/24 15:00 Pleural Fluid Gram Stain - Final Resulted 08/23/24 15:00 Pleural Fluid Body Fluid Culture - Preliminary Resulted 08/23/24 05:34 Blood Blood Culture - Preliminary NO GROWTH AFTER 72 HOURS OF INCUBATION. Resulted Labs and/or images reviewed: Labs reviewed by me Assessment/Plan Assessment/Plan -parapneumonic infusion, community-acquired pneumonia, questionable aspiration etiology -right pleural effusion, rule out empyema -obesity -sepsis -acute hypoxic respiratory failure -hypertension -depression Plan: -chest tube reviewed with minimal secretions. Chest x-ray also noting no improvement on AP view. Repeat CT scan show: Right-sided pneumonia with an area in the anterior right lung which could represent a lung abscess or emphysema. Moderate right pleural effusion with a pigtail catheter in place. Mediastinal and right hilar lymphadenopathy. Clinical correlation and continued follow-up is recommended. Consider drainage of the collection in the anterior right lung. Per surgeon, Dr. Wilkins he does not do thoracotomy or chest tube placement. I will consult pulmonology. Per she request to transfer the patient to [facility] if that is no CT surgeon in the hospital. We will discuss with test case developer and initiate the transfer to higher level of care CT surgeon for thoracotomy needed, and if recommend by gallery assistant. Continuing with IV vancomycin and Levaquin. Continuing with NSAID. -O2 supplementation to keep saturation greater than 92% -Patient continues to have uncontrolled coughing. Continuing Robitussin DM PRN -repeat labs in a.m. Discussed with and patient in length at bedside Plan discussed with: Patient, Spouse My Orders Orders - FRANK OROZCO MD Procedure Category Date Status Time * Tennis Net Maker CONS 08/26/24 Transmitted Consult *Consult CONS 08/26/24 Transmitted / 15:21 Date of Service: Aug 26, 2024 Billing Provider: FRANK OROZCO MD Common Visit Codes: [id number] INP/OBS CARE(HIGH) FRANK OROZCO MD Aug 26, 2024 22:14
--- NOTE | 2024-08-26 22:47 | DVHPN2 ---
Progress Note - Dictate Date Seen: Aug 26, 2024 Medical Necessity Reason Pt with a Central, PICC or Fol: No Subjective Patient seen and examined at bedside. Remains on supplemental oxygen Overnight events reviewed. vital signs Vital Sign Date Time Temp Pulse Resp B/P (MAP) Pulse Ox O2 Delivery O2 Flow Rate FiO2 08/26/24 20:02 95 Nasal Cannula 2.0 08/26/24 20:02 28 08/26/24 17:00 99.1 90 14 115/65 (82) 99.1 Total Intake and Output 08/25/24 08/25/24 08/26/24 15:00 23:00 07:00 Intake Total 300 ml 900 ml 800 ml Output Total 1800 ml Balance 300 ml 900 ml -1000 ml medications Current Medications Medications Dose Ordered Sig/Marisol Route Start Time Stop Time Status Last Admin Dose Admin Levofloxacin/ Dextrose 100 ml @ 100 mls/hr DAILY@1100 IV 08/23/24 11:00 08/26/24 11:11 100 MLS/HR Vancomycin HCl 0 ml @ 0 mls/hr UD IV 08/22/24 21:45 Albuterol 2.5 mg Q6HPRN PRN NEB 08/22/24 21:45 08/24/24 22:27 2.5 MG Ipratropium [place] 0.5 mg Q6HPRN PRN NEB 08/22/24 21:45 08/24/24 22:26 0.5 MG Temazepam 15 mg QHSP PRN PO 08/22/24 21:45 Ondansetron HCl 4 mg Q4HP PRN IV 08/22/24 21:45 Acetaminophen 650 mg Q6HP PRN PO 08/22/24 21:45 08/23/24 00:19 650 MG Nitroglycerin 0.4 mg Q5MINP PRN SL 08/22/24 21:45 Morphine Sulfate 2 mg Q30M PRN IV 08/22/24 21:45 Losartan Potassium 50 mg DAILY PO 08/23/24 10:00 08/26/24 09:32 50 MG Sertraline HCl 100 mg DAILY PO 08/23/24 10:00 08/26/24 09:32 100 MG Morphine Sulfate 2 mg Q4HPRN PRN IV 08/23/24 15:45 Sodium Chloride 1,000 ml @ 75 mls/hr [id number] IV 08/23/24 15:45 08/26/24 11:11 75 MLS/HR Ketorolac Tromethamine 15 mg Q6HPRN PRN IV 08/23/24 15:45 08/28/24 15:44 Acetaminophen/ Hydrocodone Bitart 1 tab Q6HPRN PRN PO 08/23/24 15:45 08/26/24 21:46 1 TAB Patient Own Medication 1 TID PRN PO 08/24/24 13:15 08/26/24 21:46 1 Guaifenesin/ Dextromethorphan 10 ml Q4HP PRN PO 08/25/24 13:30 08/26/24 20:48 10 ML Vancomycin HCl 300 ml @ 200 mls/hr Q8H IV 08/25/24 18:00 08/26/24 18:03 200 MLS/HR objective Gen.: Patient lying in bed in no apparent distress. On supplemental oxygen. Head: Normocephalic, atraumatic. Eyes: EOMI/PERRLA. Ears: Normal hearing. Normal anatomy. Neck/trachea: Trachea midline, supple. Nose: Normal external anatomy. Mouth: Moist mucous membranes. Chest: Decreased air entry bilaterally. No wheezing or rhonchi. Cardiovascular: Positive S1, positive S2. Regular rate and rhythm. Abdomen: Positive bowel sounds in all 4 quadrants. Soft, non-tender, non- distended. : Deferred. Rectal: Deferred. Skin: Warm, dry. Intact. Extremities: 2+ radial pulses bilaterally. No lower extremity edema. Neuro: Awake, alert, oriented x3. No gross motor or sensory deficits. Cranial nerves II through XII intact. Gait not assessed. laboratory and microbiology Laboratory Tests 08/26/24 17:10 08/25/24 07:03 Test 08/25/24 07:03 Range/Units Serum Glucose 110 H 74-106 mg/dL Assessment/Plan Impression: Dyspnea secondary to large right pleural effusion Large right pleural effusion Possible empyema Leukocytosis Pneumonia Obesity with a BMI of 33.8 Events: On supplemental O2 at 4 LPM NC Taper O2 as tolerated Chest tube to suction Recommend decortication by Surgery vs. tPA course. Continue chest tube to suction. Continue antibiotics Incentive spirometry Labs and imaging reviewed. Rest of plan as noted below. Plan: S/p small bore chest tube placement by IR Send fluid for cultures and cytology. Send for cell count and differential, LDH, pH, glucose, total protein Consider TPase course once chest tube is in place vs Surgical consultation for decortication. Supplemental oxygen on 4 liters/minute via nasal cannula keep O2 saturation above 92%. Antitussives Antibiotics F/u cultures. Monitor renal function Monitor electrolytes Supplement as necessary. Diet and lifestyle modifications for weight reduction given obesity DVT prophylaxis Prognosis: Guarded given multiple comorbidities. Rest of plan per hospitalist and other consultants. Thank you FREDDY Coronado for allowing me to participate in this patient's care. Further recommendations will depend on patient's clinical course. Please do not hesitate to contact me if you have any questions or concerns. This medical document was created using an electronic medical record system with [employer] dictation system. Although this document has been carefully reviewed, there may still be some phonetic and typographical errors. These areas are purely typographical due to imperfections of the software programs, and do not reflect any compromise in the patient's medical care. Plan discussed with: Patient, Other (ZULAY Mane) AMADOU CARRASQUILLO MD Aug 26, 2024 22:47
[2024-08-27] VITALS (10 sets, daily range): BP systolic 104–135; BP diastolic 68–77; PULSE 68–84; RESP 16–21; TEMP 97.9–99.4; O2SAT 94–100
[2024-08-27 07:59] LABS: Basophils # (auto) 0 10 ^3/uL (0-0.2); Basophils % (auto) 0.3 % (0.0-2.0); Eosinophils # (auto) 0.1 10 ^3/uL (0-0.8); Hematocrit 31.1 % (41.0-53.0); Hemoglobin 10.8 g/dL (13.5-17.5); Lymphocytes # (auto) 1.2 10 ^3/uL (0.4-5.4); Lymphocytes % (auto) 11.8 % (10.0-50.0); Mean Corpuscular Hemoglobin 30.7 pg (28.0-32.0); Mean Corpuscular Hgb Conc. 34.6 g/dL (32.0-36.0); Mean Corpuscular Volume 88.6 fL (80.0-100.0); Monocytes # (auto) 0.9 10 ^3/uL (0-1.3); Monocytes % (auto) 8.5 % (0.0-12.0); Neutrophils % (auto) 78.4 % (37.0-80.0); Platelet Count (auto) 168 10^3/uL (140-450); Red Blood Cells 3.51 10^6/uL (4.5-5.90); Red Cell Distribution Width 13.1 % (11.8-14.3); White Blood Cell 10.2 10^3/uL (4.4-10.8)
--- NOTE | 2024-08-27 13:14 | DVHPN2 ---
Subjective The patient is seen and examined at bedside. No complaint today. Reviewed: Care Plan, H&P, Labs, Medications Changes from previous H/P or p: No Changes General: Per HPI Objective Vitals Vital Signs Date Time Temp Pulse Resp B/P (MAP) Pulse Ox O2 Delivery O2 Flow Rate FiO2 08/27/24 10:00 95 Nasal Cannula* 2 28 08/27/24 09:27 104/68 08/27/24 08:44 98.6 79 17 98.6 Intake/Output Intake and Output 08/27/24 07:00 Intake Total 4120 ml Output Total 600 ml Balance 3520 ml Intake Oral 1470 ml IV Total 2650 ml Output Urine Total 600 ml # Voids 5 # Bowel Movements 2 General Appearance: Alert, Oriented X3, Cooperative, mild distress HEENT: Atraumatic, PERRLA Lungs: Other (Decreased breath sound in right lung. Pigtail chest tube to 30 mm of suctioned with minimal serous fluid noted) Cardiovascular: Normal S1, Normal S2 Abdomen: Normal bowel sounds Rectal: Normal inspection Genitourinary: No Apparent Abnormalities Musculoskeletal: Normal sensory function, Normal motor function Psych/Mental Status: Mental status NL, Mood NL Medications Current Medications Medications Dose Ordered Sig/Marisol Route Start Time Stop Time Status Last Admin Dose Admin Levofloxacin/ Dextrose 100 ml @ 100 mls/hr DAILY@1100 IV 08/23/24 11:00 08/27/24 11:22 100 MLS/HR Vancomycin HCl 0 ml @ 0 mls/hr UD IV 08/22/24 21:45 Albuterol 2.5 mg Q6HPRN PRN NEB 08/22/24 21:45 08/24/24 22:27 2.5 MG Ipratropium [place] 0.5 mg Q6HPRN PRN NEB 08/22/24 21:45 08/24/24 22:26 0.5 MG Temazepam 15 mg QHSP PRN PO 08/22/24 21:45 Ondansetron HCl 4 mg Q4HP PRN IV 08/22/24 21:45 Acetaminophen 650 mg Q6HP PRN PO 08/22/24 21:45 08/23/24 00:19 650 MG Nitroglycerin 0.4 mg Q5MINP PRN SL 08/22/24 21:45 Morphine Sulfate 2 mg Q30M PRN IV 08/22/24 21:45 Losartan Potassium 50 mg DAILY PO 08/23/24 10:00 08/26/24 09:32 50 MG Sertraline HCl 100 mg DAILY PO 08/23/24 10:00 08/27/24 09:24 100 MG Morphine Sulfate 2 mg Q4HPRN PRN IV 08/23/24 15:45 Sodium Chloride 1,000 ml @ 75 mls/hr [id number] IV 08/23/24 15:45 08/27/24 05:26 75 MLS/HR Ketorolac Tromethamine 15 mg Q6HPRN PRN IV 08/23/24 15:45 08/28/24 15:44 Acetaminophen/ Hydrocodone Bitart 1 tab Q6HPRN PRN PO 08/23/24 15:45 08/26/24 21:46 1 TAB Patient Own Medication 1 TID PRN PO 08/24/24 13:15 08/26/24 21:46 1 Guaifenesin/ Dextromethorphan 10 ml Q4HP PRN PO 08/25/24 13:30 08/27/24 07:49 10 ML Vancomycin HCl 300 ml @ 200 mls/hr Q8H IV 08/25/24 18:00 08/27/24 09:24 200 MLS/HR Laboratory Results Laboratory Tests 08/25/24 07:03 08/27/24 07:17 Urinalysis Test 08/22/24 21:04 Urine Color Light-yellow (Yellow) Urine Clarity Clear (Clear) Urine pH 5.5 (5.0-9.0) Urine Specific [place] 1.042 (1.001-1.035) Urine Protein Negative (Negative) Urine Ketones Negative (Negative) Urine Blood Negative /uL (Negative) Urine Nitrite Negative (Negative) Urine Bilirubin Negative (Negative) Urine Urobilinogen Normal mg/dL (Negative) Urine Leukocyte Esterase Negative /uL (Negative) Urine RBC 1 /hpf (0 - 3) Urine WBC <1 /hpf (0 - 3) Urine Squamous Epithelial Cells Few /hpf (<5) Urine Bacteria None seen /hpf (None Seen) Urine Glucose Normal mg/dL (Normal) Microbiology Microbiology Date/Time Source Procedure Growth Status 08/23/24 15:00 Pleural Fluid Gram Stain - Final Resulted 08/23/24 15:00 Pleural Fluid Body Fluid Culture - Preliminary Resulted 08/23/24 05:34 Blood Blood Culture - Preliminary NO GROWTH AFTER 72 HOURS OF INCUBATION. Resulted Labs and/or images reviewed: Labs reviewed by me Assessment/Plan Assessment/Plan -parapneumonic infusion, community-acquired pneumonia, questionable aspiration etiology -right pleural effusion, rule out empyema -obesity -sepsis -acute hypoxic respiratory failure -hypertension -depression Plan: -chest tube reviewed with minimal secretions. Chest x-ray also noting no improvement on AP view. Repeat CT scan show: Right-sided pneumonia with an area in the anterior right lung which could represent a lung abscess or emphysema. Moderate right pleural effusion with a pigtail catheter in place. Mediastinal and right hilar lymphadenopathy. Clinical correlation and continued follow-up is recommended. Consider drainage of the collection in the anterior right lung. Per surgeon, Dr. Wilkins he does not do thoracotomy or chest tube placement. Mail Machine Operator, dr Vega, input appreciated. Per she request to transfer the patient to [facility] if that is no CT surgeon in the hospital. We will discuss with correctional counselor/case manager and initiate the transfer to higher level of care for CT surgeon for thoracotomy if needed, and if recommend by manager of recruiting. Continuing with IV vancomycin and Levaquin. Continuing with NSAID. -O2 supplementation to keep saturation greater than 92% -Patient continues to have uncontrolled coughing. Continuing Robitussin DM PRN -repeat labs in a.m. Discussed with and patient in length at bedside Plan discussed with: Patient My Orders Orders - FRANK OROZCO MD Procedure Category Date Status Time *Consult CONS 08/26/24 Transmitted / 15:21 Date of Service: Aug 27, 2024 Billing Provider: FRANK OROZCO MD Common Visit Codes: [id number] INP/OBS CARE(HIGH) FRANK OROZCO MD Aug 27, 2024 13:14
[2024-08-28] VITALS (10 sets, daily range): BP systolic 100–130; BP diastolic 68–74; PULSE 77–84; RESP 16–22; TEMP 97.6–100.4; O2SAT 94–100
--- NOTE | 2024-08-28 00:41 | DVHPN2 ---
Progress Note - Dictate Date Seen: Aug 27, 2024 Medical Necessity Reason Pt with a Central, PICC or Fol: No Subjective Patient seen and examined at bedside. Remains on supplemental oxygen Overnight events reviewed. vital signs Vital Sign Date Time Temp Pulse Resp B/P (MAP) Pulse Ox O2 Delivery O2 Flow Rate FiO2 08/27/24 21:00 99.4 68 18 117/69 (85) 97 99.4 08/27/24 20:00 Nasal Cannula* 2 28 Total Intake and Output 08/27/24 08/27/24 08/28/24 15:00 23:00 07:00 Intake Total 400 ml 1805 ml Output Total 1600 ml Balance 400 ml 205 ml medications Current Medications Medications Dose Ordered Sig/Marisol Route Start Time Stop Time Status Last Admin Dose Admin Levofloxacin/ Dextrose 100 ml @ 100 mls/hr DAILY@1100 IV 08/23/24 11:00 08/27/24 11:22 100 MLS/HR Vancomycin HCl 0 ml @ 0 mls/hr UD IV 08/22/24 21:45 Albuterol 2.5 mg Q6HPRN PRN NEB 08/22/24 21:45 08/24/24 22:27 2.5 MG Ipratropium [place] 0.5 mg Q6HPRN PRN NEB 08/22/24 21:45 08/24/24 22:26 0.5 MG Temazepam 15 mg QHSP PRN PO 08/22/24 21:45 Ondansetron HCl 4 mg Q4HP PRN IV 08/22/24 21:45 Acetaminophen 650 mg Q6HP PRN PO 08/22/24 21:45 08/23/24 00:19 650 MG Nitroglycerin 0.4 mg Q5MINP PRN SL 08/22/24 21:45 Morphine Sulfate 2 mg Q30M PRN IV 08/22/24 21:45 Losartan Potassium 50 mg DAILY PO 08/23/24 10:00 08/26/24 09:32 50 MG Sertraline HCl 100 mg DAILY PO 08/23/24 10:00 08/27/24 09:24 100 MG Morphine Sulfate 2 mg Q4HPRN PRN IV 08/23/24 15:45 Sodium Chloride 1,000 ml @ 75 mls/hr [id number] IV 08/23/24 15:45 08/27/24 05:26 75 MLS/HR Ketorolac Tromethamine 15 mg Q6HPRN PRN IV 08/23/24 15:45 08/28/24 15:44 Acetaminophen/ Hydrocodone Bitart 1 tab Q6HPRN PRN PO 08/23/24 15:45 08/27/24 21:05 1 TAB Patient Own Medication 1 TID PRN PO 08/24/24 13:15 08/26/24 21:46 1 Guaifenesin/ Dextromethorphan 10 ml Q4HP PRN PO 08/25/24 13:30 08/27/24 21:03 10 ML Vancomycin HCl 300 ml @ 200 mls/hr Q8H IV 08/25/24 18:00 08/27/24 17:18 200 MLS/HR objective Gen.: Patient lying in bed in no apparent distress. On supplemental oxygen. Head: Normocephalic, atraumatic. Eyes: EOMI/PERRLA. Ears: Normal hearing. Normal anatomy. Neck/trachea: Trachea midline, supple. Nose: Normal external anatomy. Mouth: Moist mucous membranes. Chest: Decreased air entry bilaterally. No wheezing or rhonchi. Cardiovascular: Positive S1, positive S2. Regular rate and rhythm. Abdomen: Positive bowel sounds in all 4 quadrants. Soft, non-tender, non- distended. : Deferred. Rectal: Deferred. Skin: Warm, dry. Intact. Extremities: 2+ radial pulses bilaterally. No lower extremity edema. Neuro: Awake, alert, oriented x3. No gross motor or sensory deficits. Cranial nerves II through XII intact. Gait not assessed. laboratory and microbiology Laboratory Tests 08/27/24 07:17 08/25/24 07:03 Test 08/25/24 07:03 Range/Units Serum Glucose 110 H 74-106 mg/dL Assessment/Plan Impression: Dyspnea secondary to large right pleural effusion Large right pleural effusion Possible empyema Leukocytosis Pneumonia Obesity with a BMI of 33.8 Events: On supplemental O2 at 2 LPM NC Taper O2 as tolerated Improved O2 requirements Chest tube to suction Recommend decortication by Surgery vs. Alteplase course. Continue chest tube to suction. Recommend to flush chest tube daily Continue antibiotics Incentive spirometry Antitussive for cough Pleural fluid cx showed hemolytic Streptococcus - f/u susceptibility testing. Blood cx show no growth x72 hours. IV fluid hydration Labs and imaging reviewed. Rest of plan as noted below. Plan: S/p small bore chest tube placement by IR Send fluid for cultures and cytology. Send for cell count and differential, LDH, pH, glucose, total protein Consider TPase course once chest tube is in place vs Surgical consultation for decortication. Supplemental oxygen on 2 liters/minute via nasal cannula keep O2 saturation above 92%. Antitussives Antibiotics F/u cultures. Monitor renal function Monitor electrolytes Supplement as necessary. Diet and lifestyle modifications for weight reduction given obesity DVT prophylaxis Prognosis: Guarded given multiple comorbidities. Rest of plan per hospitalist and other consultants. Thank you FREDDY Coronado for allowing me to participate in this patient's care. Further recommendations will depend on patient's clinical course. Please do not hesitate to contact me if you have any questions or concerns. This medical document was created using an electronic medical record system with [employer] dictation system. Although this document has been carefully reviewed, there may still be some phonetic and typographical errors. These areas are purely typographical due to imperfections of the software programs, and do not reflect any compromise in the patient's medical care. Plan discussed with: Patient, Other (RN) AMADOU CARRASQUILLO MD Aug 28, 2024 00:41
--- NOTE | 2024-08-28 11:10 | DVHPN2 ---
Progress Note Date Seen: Aug 28, 2024 Medical Necessity Reason Pt with a Central, PICC or Fol: No Subjective Patient reports: No new complaints Review of Systems: HEENT:Normal, CVS:Normal, RESPIRATORY:Normal, GI:Normal, :Normal, MSK:Normal, NEURO:Normal Objective vital signs Vital Sign Date Time Temp Pulse Resp B/P (MAP) Pulse Ox O2 Delivery O2 Flow Rate FiO2 08/28/24 10:00 95 Nasal Cannula 2.0 08/28/24 10:00 28 08/28/24 09:44 146/68 08/28/24 09:00 97.7 83 16 97.7 Total Intake and Output 08/27/24 08/27/24 08/28/24 15:00 23:00 07:00 Intake Total 400 ml 1805 ml 1600 ml Output Total 1600 ml 1200 ml Balance 400 ml 205 ml 400 ml medications Current Medications Medications Dose Ordered Sig/Marisol Route Start Time Stop Time Status Last Admin Dose Admin Levofloxacin/ Dextrose 100 ml @ 100 mls/hr DAILY@1100 IV 08/23/24 11:00 08/27/24 11:22 100 MLS/HR Vancomycin HCl 0 ml @ 0 mls/hr UD IV 08/22/24 21:45 Albuterol 2.5 mg Q6HPRN PRN NEB 08/22/24 21:45 08/24/24 22:27 2.5 MG Ipratropium [place] 0.5 mg Q6HPRN PRN NEB 08/22/24 21:45 08/24/24 22:26 0.5 MG Temazepam 15 mg QHSP PRN PO 08/22/24 21:45 Ondansetron HCl 4 mg Q4HP PRN IV 08/22/24 21:45 Acetaminophen 650 mg Q6HP PRN PO 08/22/24 21:45 08/23/24 00:19 650 MG Nitroglycerin 0.4 mg Q5MINP PRN SL 08/22/24 21:45 Morphine Sulfate 2 mg Q30M PRN IV 08/22/24 21:45 Losartan Potassium 50 mg DAILY PO 08/23/24 10:00 08/28/24 09:44 50 MG Sertraline HCl 100 mg DAILY PO 08/23/24 10:00 08/28/24 09:44 100 MG Morphine Sulfate 2 mg Q4HPRN PRN IV 08/23/24 15:45 Sodium Chloride 1,000 ml @ 75 mls/hr [id number] IV 08/23/24 15:45 08/28/24 02:26 75 MLS/HR Ketorolac Tromethamine 15 mg Q6HPRN PRN IV 08/23/24 15:45 08/28/24 15:44 Acetaminophen/ Hydrocodone Bitart 1 tab Q6HPRN PRN PO 08/23/24 15:45 08/27/24 21:05 1 TAB Patient Own Medication 1 TID PRN PO 08/24/24 13:15 08/26/24 21:46 1 Guaifenesin/ Dextromethorphan 10 ml Q4HP PRN PO 08/25/24 13:30 08/28/24 06:30 10 ML Vancomycin HCl 300 ml @ 200 mls/hr Q8H IV 08/25/24 18:00 08/28/24 09:43 200 MLS/HR Examination: GENERAL:Normal, HEENT:Normal, NECK:Normal, LUNGS:Normal, LUNGS:Abnormal (right chest tube), CVS:Normal, ABDOMEN:Normal, MSK:Normal, SKIN:Normal, NEURO:Normal, :Normal laboratory and microbiology Laboratory Tests 08/27/24 07:17 08/25/24 07:03 Test 08/25/24 07:03 Range/Units Serum Glucose 110 H 74-106 mg/dL Microbiology Date/Time Source Procedure Growth Status 08/23/24 15:00 Pleural Fluid Gram Stain - Final Resulted 08/23/24 15:00 Pleural Fluid Body Fluid Culture - Preliminary Resulted 08/23/24 05:34 Blood Blood Culture - Final NO GROWTH AFTER 5 DAYS OF INCUBATION. Complete Problem List/Assessment/Plan Problem List/Assessment/Plan #1 acute resp failure: cont oxygen #2 right empyema/pneumonia with sepsis: s/p chest tube placement, iv antibiotics, surg eval #3 obesity #4 htn #5 depression Plan discussed with: Patient, Spouse Date of Service: Aug 28, 2024 Billing Provider: LUCILA SAHNI MD Common Visit Codes: [id number] INP/OBS CARE(HIGH) LUCILA SAHNI MD Aug 28, 2024 11:10
--- NOTE | 2024-08-28 15:19 | DVHINCON2 ---
Date of service: Aug 28, 2024 Family History: FH: heart disease G8 MOTHER FH: lung cancer G8 FATHER Allergies: Coded Allergies: Iron (Verified Allergy, Severe, 08/22/24) Codeine (Verified Allergy, Unknown, 08/22/24) Penicillins (Verified Allergy, Unknown, 08/22/24) Home Meds Reported Medications Celecoxib (Celebrex) 100 Mg Cap, 100 MG PO PRN for 30 Days, MG 08/23/24 Sertraline HCl (Sertraline Hydrochloride) 100 Mg Tab, 100 MG PO DAILY, TAB 08/23/24 Amphetamine-Dextroamphetamine (Adderall) 20 Mg Tab, 1 TAB PO DAILY, #30 TAB 08/23/24 Losartan Potassium (Losartan Potassium) 50 Mg Tab, 50 MG PO DAILY for 30 Days, MG 08/23/24 Vital Signs Vital Signs Date Time Temp Pulse Resp B/P (MAP) Pulse Ox O2 Delivery O2 Flow Rate FiO2 08/28/24 10:00 95 Nasal Cannula 2.0 08/28/24 10:00 28 08/28/24 09:44 146/68 08/28/24 09:00 97.7 83 16 97.7 Labs/Diagnostic Data Labs Test 08/27/24 07:17 08/26/24 17:10 08/25/24 07:03 08/23/24 12:20 Range/Units White Blood Count 10.2 4.4-10.8 10^3/uL Red Blood Count 3.51 L 4.5-5.90 10^6/uL Hemoglobin 10.8 L 13.5-17.5 g/dL Hematocrit 31.1 L 41.0-53.0 % Mean Corpuscular Volume 88.6 80.0-100.0 fL Mean Corpuscular Hemoglobin 30.7 28.0-32.0 pg Mean Corpuscular Hemoglobin Concent 34.6 32.0-36.0 g/dL Red Cell Distribution Width 13.1 11.8-14.3 % Platelet Count 168 140-450 10^3/uL Mean Platelet Volume 7.1 6.9-10.8 fL Neutrophils (%) (Auto) 78.4 37.0-80.0 % Lymphocytes (%) (Auto) 11.8 10.0-50.0 % Monocytes (%) (Auto) 8.5 0.0-12.0 % Eosinophils (%) (Auto) 1.0 0.0-7.0 % Basophils (%) (Auto) 0.3 0.0-2.0 % Neutrophils # (Auto) 8.0 1.6-8.6 10 ^3/uL Lymphocytes # (Auto) 1.2 0.4-5.4 10 ^3/uL Monocytes # (Auto) 0.9 0-1.3 10 ^3/uL Eosinophils # (Auto) 0.1 0-0.8 10 ^3/uL Basophils # (Auto) 0 0-0.2 10 ^3/uL Nucleated Red Blood Cells 0.0 % Creatinine 0.96 0.700-1.30 mg/dL Glomerular Filtration Rate Calc 99 >90 mL/min Vancomycin Level Trough 13.5 H 5-10 ug/mL Sodium Level 134 L 136-145 mmol/L Potassium Level 4.0 3.5-5.1 mmol/L Chloride Level 102 98-107 mmol/L Carbon Dioxide Level 25 20-31 mmol/L Anion Gap 7 5-15 Blood Urea Nitrogen 11 9-23 mg/dL BUN/Creatinine Ratio 11.5 10.0-20.0 Serum Glucose 110 H 74-106 mg/dL Calcium Level 9.0 8.7-10.4 mg/dL Total Bilirubin 0.4 0.2-1.0 mg/dL Aspartate Amino Transferase (AST) 61 H 13-40 U/L Alanine Aminotransferase (ALT) 91 H 7-40 U/L Alkaline Phosphatase 216 H 46-116 U/L Total Protein 6.5 5.7-8.2 g/dL Albumin 3.3 3.2-4.8 g/dL Prothrombin Time 15.2 H 9.3-11.8 sec Prothrombin Time INR 1.48 H 0.9-1.15 Activated Partial Thromboplast Time 35.3 H 24.5-34.5 SEC Test 08/23/24 09:32 08/22/24 21:19 08/22/24 21:04 Range/Units Blood Gas Specimen Type Arterial Blood Gas Sample Site Right radial Blood Gas Patient Temperature 37.0 Arterial Blood Date Drawn [id number] Arterial Blood pH 7.492 H 7.350-7.450 Arterial Blood Partial Pressure CO2 26.5 L 35.0-48.0 mmHg Arterial Blood Partial Pressure O2 77.4 L 83.0-108.0 mmHg Arterial Blood HCO3 19.8 L 21.0-28.0 mmol/L Arterial Blood Oxygen Saturation 95.1 94.0-98.0 % Arterial Blood Base Excess -2.3 L -2.0-3.0 mmol/L Arterial Blood Oxyhemoglobin 94.1 94.0-98.0 % Arterial Blood Carboxyhemoglobin 0.7 0.5-1.5 % Arterial Blood Methemoglobin 0.4 0.0-1.5 % Robin Test Yes Blood Gas Total Hemoglobin 11.80 L 13.5-17.5 g/dL Blood Gas Liter Flow 4.00 Blood Gas Modality Nasal cannula FiO2 % 36.0 Lactic Acid Level 1.5 0.4-2.0 mmol/L Troponin I High Sensitivity 5 </=54 ng/L B-Type Natriuretic Peptide 13.88 0-100 pg/mL Urine Color Light-yellow Yellow Urine Clarity Clear Clear Urine pH 5.5 5.0-9.0 Urine Specific [place] 1.042 H 1.001-1.035 Urine Protein Negative Negative Urine Ketones Negative Negative Urine Blood Negative Negative /uL Urine Nitrite Negative Negative Urine Bilirubin Negative Negative Urine Urobilinogen Normal Negative mg/dL Urine Leukocyte Esterase Negative Negative /uL Urine RBC 1 0 - 3 /hpf Urine WBC <1 0 - 3 /hpf Urine Squamous Epithelial Cells Few <5 /hpf Urine Bacteria None seen None Seen /hpf Urine Glucose Normal Normal mg/dL Microbiology Date/Time Source Procedure Growth Status 08/23/24 15:00 Pleural Fluid Gram Stain - Final Resulted 08/23/24 15:00 Pleural Fluid Body Fluid Culture - Preliminary Resulted 08/23/24 05:34 Blood Blood Culture - Final NO GROWTH AFTER 5 DAYS OF INCUBATION. Complete Assessment right pleural infection, persistent effusion, thoracotomy decortication of lung risks and coloplications explained in detail. His coagulopathy needs to be corrected prior to operation, scheduled for, Wednesday. full consult dictated Plan discussed with: Patient, Spouse TONEY MARINELLI MD Aug 28, 2024 15:19
[2024-08-29] VITALS (10 sets, daily range): BP systolic 102–116; BP diastolic 60–73; PULSE 70–90; RESP 16–22; TEMP 98.2–99.2; O2SAT 92–100
[2024-08-29 05:09] LABS: Basophils # (auto) 0 10 ^3/uL (0-0.2); Basophils % (auto) 0.5 % (0.0-2.0); Eosinophils # (auto) 0.1 10 ^3/uL (0-0.8); Eosinophils % (auto) 1.3 % (0.0-7.0); Hematocrit 31.1 % (41.0-53.0); Hemoglobin 10.7 g/dL (13.5-17.5); Lymphocytes # (auto) 1.2 10 ^3/uL (0.4-5.4); Lymphocytes % (auto) 12.8 % (10.0-50.0); Mean Corpuscular Hemoglobin 30.3 pg (28.0-32.0); Mean Corpuscular Hgb Conc. 34.5 g/dL (32.0-36.0); Mean Corpuscular Volume 87.7 fL (80.0-100.0); Monocytes # (auto) 0.7 10 ^3/uL (0-1.3); Monocytes % (auto) 8.2 % (0.0-12.0); Neutrophils % (auto) 77.2 % (37.0-80.0); Nucleated Red Blood Cells % 0.1 %; Platelet Count (auto) 197 10^3/uL (140-450); Red Blood Cells 3.55 10^6/uL (4.5-5.90); Red Cell Distribution Width 13.4 % (11.8-14.3); White Blood Cell 9.1 10^3/uL (4.4-10.8)
[2024-08-29 05:20] LABS: INR 1.39 (0.9-1.15); Partial Thromboplastin Time 34.6 SEC (24.5-34.5); Prothrombin Time 14.4 sec (9.3-11.8)
[2024-08-29 05:24] LABS: Alanine Aminotransferase 164 U/L (7-40); Alkaline Phosphatase 200 U/L (46-116); Anion Gap 8 (5-15); Blood Urea Nitrogen 12 mg/dL (9-23); Calcium 9.3 mg/dL (8.7-10.4); Carbon Dioxide 24 mmol/L (20-31); Chloride 102 mmol/L (98-107); Glucose 99 mg/dL (74-106); Potassium 4.1 mmol/L (3.5-5.1); Sodium 134 mmol/L (136-145)
[2024-08-29 05:25] LABS: Albumin 3.4 g/dL (3.2-4.8); Aspartate Aminotransferase 78 U/L (13-40); Bilirubin, Total 0.4 mg/dL (0.2-1.0); Total Protein 6.8 g/dL (5.7-8.2)
--- NOTE | 2024-08-29 10:35 | DVHINCON2 ---
DATE OF CONSULTATION: 08/28/2024 REASON FOR CONSULTATION: The patient is being evaluated for right pleural effusion, right empyema, need for right lung decortication. HISTORY OF PRESENT ILLNESS: The patient is a 44-year-old male who is being evaluated for shortness of breath. The patient was diagnosed with pneumonia approximately 2-1/2 weeks ago. Continued shortness of breath led him to present to further treatment. The patient is being evaluated for empyema. He had a previous left knee surgery and vasectomy. The patient takes medications for his blood pressure. ALLERGIES: HE IS ALLERGIC TO CODEINE, IRON AND PENICILLIN. SOCIAL HISTORY: The patient is a nonsmoker, nondrinker. He used to smoke 15 years ago, quit at that time. FAMILY HISTORY: There is some family history of diabetes and cancers. PHYSICAL EXAMINATION: GENERAL: Well-developed, well-nourished male in no acute distress. Nasal prongs delivering oxygen at bed rest. HEENT: Pupils are equal, round, react to light equally. Sclerae nonicteric. Extraocular motion is intact. Uvula midline. Trachea midline. NECK: Carotids are full without bruits. Jugular veins are collapsed. HEART: Regular rate and rhythm without murmur or gallop. ABDOMEN: Nondistended, nontender. EXTREMITIES: There is no peripheral vascular insufficiency. No venous stasis. BACK: No CVA tenderness. LABORATORY, DIAGNOSTIC AND IMAGING DATA: Laboratory evaluation on admission, the patient had a white count of 20.7 with a left shift. Today, his white count is 10.2 with a normal differential. The patient's platelet count is normal. INR is elevated at 1.48. PT is 15.2. The patient's chemistries show elevated ALT, AST, alkaline phosphatase. Bilirubin is normal. Chest x-ray shows persistent right sided pneumonia with persistent right lung thickening of the pleura and there is evidence of either lung abscess or emphysema in the lower lung. There is a large pleural effusion with pigtail catheter. There is a right hilar and mediastinal lymphadenopathy present. ASSESSMENT AND PLAN: The patient will require thoracotomy due to the chronicity of the problem. I have explained the procedure to the patient and his . Also explained potential risks and complications in detail. MD KANIKA Carvalho TID: [id number] RECEIPT: [id number]
--- NOTE | 2024-08-29 10:38 | DVHPN2 ---
Progress Note Date Seen: Aug 29, 2024 Medical Necessity Reason Pt with a Central, PICC or Fol: No Subjective Patient reports: No new complaints Review of Systems: HEENT:Normal, CVS:Normal, RESPIRATORY:Normal, GI:Normal, :Normal, MSK:Normal, NEURO:Normal Objective vital signs Vital Sign Date Time Temp Pulse Resp B/P (MAP) Pulse Ox O2 Delivery O2 Flow Rate FiO2 08/29/24 09:58 112/68 08/29/24 09:00 98.4 87 18 100 98.4 08/28/24 20:00 Nasal Cannula* 2 28 Total Intake and Output 08/28/24 08/28/24 08/29/24 15:00 23:00 07:00 Intake Total 2175 ml 500 ml Output Total 1650 ml 300 ml Balance 525 ml 200 ml medications Current Medications Medications Dose Ordered Sig/Marisol Route Start Time Stop Time Status Last Admin Dose Admin Vancomycin HCl 0 ml @ 0 mls/hr UD IV 08/22/24 21:45 Temazepam 15 mg QHSP PRN PO 08/22/24 21:45 Ondansetron HCl 4 mg Q4HP PRN IV 08/22/24 21:45 Acetaminophen 650 mg Q6HP PRN PO 08/22/24 21:45 08/23/24 00:19 650 MG Nitroglycerin 0.4 mg Q5MINP PRN SL 08/22/24 21:45 Morphine Sulfate 2 mg Q30M PRN IV 08/22/24 21:45 Losartan Potassium 50 mg DAILY PO 08/23/24 10:00 08/29/24 09:58 50 MG Sertraline HCl 100 mg DAILY PO 08/23/24 10:00 08/29/24 09:58 100 MG Morphine Sulfate 2 mg Q4HPRN PRN IV 08/23/24 15:45 Sodium Chloride 1,000 ml @ 75 mls/hr [id number] IV 08/23/24 15:45 08/28/24 15:45 75 MLS/HR Acetaminophen/ Hydrocodone Bitart 1 tab Q6HPRN PRN PO 08/23/24 15:45 08/28/24 21:56 1 TAB Patient Own Medication 1 TID PRN PO 08/24/24 13:15 08/28/24 21:57 1 Guaifenesin/ Dextromethorphan 10 ml Q4HP PRN PO 08/25/24 13:30 08/28/24 17:51 10 ML Vancomycin HCl 300 ml @ 200 mls/hr Q8H IV 08/25/24 18:00 08/29/24 09:57 200 MLS/HR Examination: GENERAL:Normal, HEENT:Normal, NECK:Normal, LUNGS:Normal, LUNGS:Abnormal (right chest tube), CVS:Normal, ABDOMEN:Normal, MSK:Normal, SKIN:Normal, NEURO:Normal, :Normal laboratory and microbiology Laboratory Tests 08/29/24 04:21 Test 08/29/24 04:21 Range/Units Serum Glucose 99 74-106 mg/dL Microbiology Date/Time Source Procedure Growth Status 08/23/24 15:00 Pleural Fluid Gram Stain - Final Resulted 08/23/24 15:00 Body Fluid Culture - Preliminary Streptococcus anginosus Resulted 08/23/24 05:34 Blood Blood Culture - Final NO GROWTH AFTER 5 DAYS OF INCUBATION. Complete Problem List/Assessment/Plan Problem List/Assessment/Plan #1 acute resp failure: cont oxygen #2 right empyema/pneumonia with sepsis: s/p chest tube placement, iv antibiotics, surg in am #3 obesity #4 htn #5 depression Plan discussed with: Patient My Orders My Orders Orders - LUCILA SAHNI MD Procedure Category Date Status Time Phytonadione (Vitamin PHA 08/29/24 Verified K) 10:45 Ceftriaxone Ivpb PHA 08/30/24 Verified Rocephin 09:00 Ceftriaxone Ivpb PHA 08/29/24 Verified Rocephin 10:45 Complete Blood Count LAB 08/30/24 Verified 06:00 Comprehensive LAB 08/30/24 Verified Metabolic Panel 06:00 PTPTT LAB 08/30/24 Verified 04:00 Date of Service: Aug 29, 2024 Billing Provider: LUCILA SAHNI MD Common Visit Codes: [id number] INP/OBS CARE(HIGH) LUCILA SAHNI MD Aug 29, 2024 10:38
[2024-08-29] MEDS: cefTRIAXone 1GM/50ML D5W 50 ML IV ONE (12:01)
[2024-08-29] MEDS: PHYTONADIONE (VIT K)10 MG/ML 1ML VIAL SUBCUT ONE (12:02)
[2024-08-30] VITALS (65 sets, daily range): BP systolic 87–162; BP diastolic 55–85; PULSE 67–101; RESP 9–23; TEMP 97.4–98.7; O2SAT 91–100
[2024-08-30 05:30] LABS: Basophils # (auto) 0 10 ^3/uL (0-0.2); Basophils % (auto) 0.3 % (0.0-2.0); Eosinophils # (auto) 0.1 10 ^3/uL (0-0.8); Eosinophils % (auto) 1.2 % (0.0-7.0); Hematocrit 30.6 % (41.0-53.0); Hemoglobin 10.4 g/dL (13.5-17.5); Lymphocytes # (auto) 1.2 10 ^3/uL (0.4-5.4); Lymphocytes % (auto) 13.8 % (10.0-50.0); Mean Corpuscular Hgb Conc. 34.1 g/dL (32.0-36.0); Mean Corpuscular Volume 88.1 fL (80.0-100.0); Monocytes # (auto) 0.7 10 ^3/uL (0-1.3); Monocytes % (auto) 7.7 % (0.0-12.0); Neutrophils # (auto) 6.8 10 ^3/uL (1.6-8.6); Platelet Count (auto) 232 10^3/uL (140-450); Red Blood Cells 3.47 10^6/uL (4.5-5.90); White Blood Cell 8.8 10^3/uL (4.4-10.8)
[2024-08-30 05:42] LABS: Alanine Aminotransferase 154 U/L (7-40); Albumin 3.4 g/dL (3.2-4.8); Alkaline Phosphatase 187 U/L (46-116); Anion Gap 9 (5-15); Aspartate Aminotransferase 65 U/L (13-40); BUN/Creatinine Ratio 14.8 (10.0-20.0); Bilirubin, Total 0.3 mg/dL (0.2-1.0); Blood Urea Nitrogen 13 mg/dL (9-23); Calcium 9.1 mg/dL (8.7-10.4); Carbon Dioxide 23 mmol/L (20-31); Chloride 103 mmol/L (98-107); Glucose 102 mg/dL (74-106); Sodium 135 mmol/L (136-145); Total Protein 6.7 g/dL (5.7-8.2)
[2024-08-30 05:45] LABS: INR 1.3 (0.9-1.15); Partial Thromboplastin Time 33.6 SEC (24.5-34.5); Prothrombin Time 13.5 sec (9.3-11.8)
[2024-08-30] MEDS ORDERED: ROCURONIUM 10MG/ML 10ML VIAL IV ONE (07:22)
[2024-08-30] MEDS ORDERED: ONDANSETRON HCL 4 MG/2 ML VIAL ONE (07:22)
[2024-08-30] MEDS ORDERED: MIDAZOLAM HCL 2MG/2ML 2ml VIAL (1mg/ml) ONE (07:22)
[2024-08-30] MEDS ORDERED: HYDROmorphone HCL 2 MG/ML VL/or syr ONE (07:22)
[2024-08-30] MEDS ORDERED: DexAMETHasone SOD PHOS 10MG/1ML VIAL INJ ONE (07:22)
[2024-08-30] MEDS ORDERED: fentaNYL CITRATE 100 MCG/2 ML VL ONE (07:22)
[2024-08-30] MEDS ORDERED: LIDOCAINE 2% (LOCAL ANESTH.) PF 5ml SDV ONE (07:22)
[2024-08-30] MEDS ORDERED: PROPOFOL 10 MG/ML 20 ML IV ONE (07:22)
[2024-08-30] MEDS ORDERED: ePHEDrine SULFATE 50 MG/ML AMP ONE (07:22)
[2024-08-30] MEDS ORDERED: GLYCOPYRROLATE 0.2 MG/ML 1ML VIAL ONE (07:22)
[2024-08-30] MEDS ORDERED: KETOROLAC TROMETH 30 MG/ML 1ML VIAL ONE (07:22)
[2024-08-30] MEDS: ONDANSETRON HCL 4 MG/2 ML VIAL IV ONE (07:30)
[2024-08-30] MEDS ORDERED: HYDROmorphone HCL 2 MG/ML VL/or syr IV PRN (07:30)
[2024-08-30] MEDS ORDERED: KETAMINE 50mg/ML 1ml syringe ONE (07:51)
[2024-08-30] MEDS ORDERED: SUGAMMADEX 200mg/2ml Vial (100MG/ML) IV ONE (08:19)
[2024-08-30] MEDS ORDERED: MEPERIDINE HCL (25 MG/ML) 1ML VIAL ONE (08:37)
[2024-08-30] MEDS: BUPIVACAINE W/ EPINEPH 0.5% MPF 30ML VIAL IJ ONE (09:00)
--- NOTE | 2024-08-30 09:50 | DVHOP ---
DATE OF SURGERY: 08/30/2024 PREOPERATIVE DIAGNOSIS: Empyema, pulmonary entrapment, persistent pleural effusion. SURGEON: Ced Kearney MD [employer]: Hasmukh Andrew NP ANESTHESIA: General endotracheal. ANESTHESIOLOGIST: Neelima Gonzales MD PROCEDURE: Right thoracotomy, evacuation of empyema, right lung decortication. DESCRIPTION OF PROCEDURE: Under general anesthesia with the patient's skin prepped and draped, the patient turned on the operating room table with the right chest facing upward to down. Axilla protected on axillary roll. The patient's knees and arms on pillows. The body padded and secured with a beanbag. Following preparation of the skin, an incision was made in a posterolateral chest and the chest cavity entered through the fifth interspace. The lung was not moving. It was entrapped with an exceedingly thick pleural peel. Decortication of the right lung was accomplished, resulting in return of normal ventilatory excursion of the right lung. The lung was fused with the diaphragm. The fusion plane was inspected and incised. The lung was mobilized. Superior aspect of the lung contained loculated pus between the pleura and the chest wall. This was evacuated and cultures were submitted. The chest cavity was then profusely irrigated with Betadine containing saline, which was then aspirated. A size 40 chest tube was inserted and directed posterosuperiorly and secured with a long Tevdek suture. Following assurance of complete hemostasis, the chest cavity was approximated using [id number] #1 Tevdek sutures, #1 double-stranded PDS suture for approximation and metallic skin jeffry approximating the skin. The patient remained stable throughout the procedure, left the operating room following an accurate needle and sponge count. His , Farzaneh, was thoroughly informed by phone at [phone]. Ced Kearney MD PF TID: [id number] RECEIPT: [id number]
--- NOTE | 2024-08-30 10:16 | DVH ---
CHEST RADIOGRAPH Indication:post right thoracotomy and decortication Technique: Single frontal view of the chest was obtained COMPARISON: XY CHEST XRAY 1 VIEW on DOS: 08/25/24, XY CHEST PORTABLE on DOS: 08/24/24, XY CHEST JERALD BLE on DOS: 08/23/24 FINDINGS: Lines and Tubes: Large bore right chest tube in satisfactory position. Lungs: Patchy right lung airspace disease. Pleura: No effusion. Small right lateral pneumothorax. Cardiomediastinal contours: Unremarkable Bones: Unremarkable IMPRESSION: Interval improvement in aeration of the right lung post large bore right chest tube placement. Small right lateral pneumothorax with right chest tube in-situ.
[2024-08-30] MEDS: cefTRIAXone 1GM/50ML D5W 50 ML IV SCH (11:15)
[2024-08-30] MEDS: D5W/SOD CHL 0.45%/KCL 20MEQ 1,000 ML IV SCH (11:15)
--- NOTE | 2024-08-30 15:47 | DVHPN2 ---
Progress Note Date Seen: Aug 30, 2024 Medical Necessity Reason Pt with a Central, PICC or Fol: No Subjective Patient reports: No new complaints Review of Systems: HEENT:Normal, CVS:Normal, RESPIRATORY:Normal, GI:Normal, :Normal, MSK:Normal, NEURO:Normal Objective vital signs Vital Sign Date Time Temp Pulse Resp B/P (MAP) Pulse Ox O2 Delivery O2 Flow Rate FiO2 08/30/24 15:30 67 17 106/66 (79) 99 08/30/24 14:30 Nasal Cannula* 5 40 08/30/24 12:00 97.4 97.4 Total Intake and Output 08/29/24 08/29/24 08/30/24 15:00 23:00 07:00 Intake Total 300 ml 600 ml 825 ml Output Total 750 ml 870 ml Balance 300 ml -150 ml -45 ml medications Current Medications Medications Dose Ordered Sig/Marisol Route Start Time Stop Time Status Last Admin Dose Admin Vancomycin HCl 0 ml @ 0 mls/hr UD IV 08/22/24 21:45 Ondansetron HCl 4 mg Q4HP PRN IV 08/22/24 21:45 Acetaminophen 650 mg Q6HP PRN PO 08/22/24 21:45 08/23/24 00:19 650 MG Nitroglycerin 0.4 mg Q5MINP PRN SL 08/22/24 21:45 Morphine Sulfate 2 mg Q30M PRN IV 08/22/24 21:45 Losartan Potassium 50 mg DAILY PO 08/23/24 10:00 08/30/24 11:13 50 MG Sertraline HCl 100 mg DAILY PO 08/23/24 10:00 08/30/24 11:13 100 MG Morphine Sulfate 2 mg Q4HPRN PRN IV 08/23/24 15:45 Sodium Chloride 1,000 ml @ 75 mls/hr [id number] IV 08/23/24 15:45 08/30/24 00:47 75 MLS/HR Acetaminophen/ Hydrocodone Bitart 1 tab Q6HPRN PRN PO 08/23/24 15:45 08/30/24 14:17 1 TAB Patient Own Medication 1 TID PRN PO 08/24/24 13:15 08/29/24 21:13 1 Guaifenesin/ Dextromethorphan 10 ml Q4HP PRN PO 08/25/24 13:30 08/29/24 11:58 10 ML Vancomycin HCl 300 ml @ 200 mls/hr Q8H IV 08/25/24 18:00 08/30/24 11:25 200 MLS/HR Ceftriaxone Sodium 50 ml @ 100 mls/hr DAILY@09 IV 08/30/24 09:00 08/30/24 11:15 100 MLS/HR Potassium Chloride/Dextrose/ Sod Cl 1,000 ml @ 120 mls/hr Q8H20M IV 08/30/24 09:30 08/30/24 11:15 120 MLS/HR Examination: GENERAL:Normal, HEENT:Normal, NECK:Normal, LUNGS:Normal, LUNGS:Abnormal (s/p thoracotomy, chest tube), CVS:Normal, ABDOMEN:Normal, MSK:Normal, SKIN:Normal, NEURO:Normal, :Normal laboratory and microbiology Laboratory Tests 08/30/24 04:42 Test 08/30/24 04:42 Range/Units Serum Glucose 102 74-106 mg/dL Microbiology Date/Time Source Procedure Growth Status 08/23/24 15:00 Pleural Fluid Gram Stain - Final Resulted 08/23/24 15:00 Body Fluid Culture - Preliminary Streptococcus anginosus Resulted 08/23/24 05:34 Blood Blood Culture - Final NO GROWTH AFTER 5 DAYS OF INCUBATION. Complete Problem List/Assessment/Plan Problem List/Assessment/Plan #1 acute resp failure: cont oxygen #2 right empyema/pneumonia with sepsis: s/p thoracotomy, is #3 obesity #4 htn #5 depression Plan discussed with: Patient, Spouse My Orders My Orders Orders - LUCILA SAHNI MD Procedure Category Date Status Time Mrsa Screen CHELSEA 08/30/24 In Process 10:43 Complete Blood Count LAB 08/31/24 Verified 06:00 Comprehensive LAB 08/31/24 Verified Metabolic Panel 06:00 Chest Portable XY 08/31/24 Logged 06:00 Regular Diet DIET 08/30/24 Transmitted Dinner Incentive Spirometry ORDERS 08/30/24 Transmitted 15:37 Dietary Evaluation Review Comments: Monitor PO intake to meet 75% of his needs Expected Outcomes/Goals: gradual weight loss. Critical Care Time (mins): 36 (critical care time 36 mins) Date of Service: Aug 30, 2024 Billing Provider: LUCILA SAHNI MD Common Visit Codes: [id number] CARE 30-74 MIN LUCILA SAHNI MD Aug 30, 2024 15:47
[2024-08-30] MEDS: MORPHINE SULFATE INJ 2 MG/ml SYRG IV PRN ×2 (20:45)
[2024-08-31] VITALS (80 sets, daily range): BP systolic 101–144; BP diastolic 50–79; PULSE 69–100; RESP 10–24; TEMP 98.2–99.1; O2SAT 95–100
[2024-08-31 05:25] LABS: Alanine Aminotransferase 123 U/L (7-40); Albumin 3.3 g/dL (3.2-4.8); Alkaline Phosphatase 151 U/L (46-116); Anion Gap 6 (5-15); Aspartate Aminotransferase 59 U/L (13-40); BUN/Creatinine Ratio 11.1 (10.0-20.0); Bilirubin, Total 0.4 mg/dL (0.2-1.0); Blood Urea Nitrogen 9 mg/dL (9-23); Calcium 8.6 mg/dL (8.7-10.4); Carbon Dioxide 24 mmol/L (20-31); Chloride 100 mmol/L (98-107); Glucose 131 mg/dL (74-106); Total Protein 6.2 g/dL (5.7-8.2)
[2024-08-31 05:31] LABS: Sodium 130 mmol/L (136-145)
[2024-08-31 05:32] LABS: Basophils # (auto) 0 10 ^3/uL (0-0.2); Basophils % (auto) 0.2 % (0.0-2.0); Eosinophils # (auto) 0 10 ^3/uL (0-0.8); Eosinophils % (auto) 0.4 % (0.0-7.0); Hematocrit 25.5 % (41.0-53.0); Hemoglobin 8.6 g/dL (13.5-17.5); Lymphocytes # (auto) 1.1 10 ^3/uL (0.4-5.4); Lymphocytes % (auto) 8.8 % (10.0-50.0); Mean Corpuscular Hgb Conc. 33.9 g/dL (32.0-36.0); Mean Corpuscular Volume 88.5 fL (80.0-100.0); Monocytes # (auto) 0.9 10 ^3/uL (0-1.3); Monocytes % (auto) 7.2 % (0.0-12.0); Neutrophils # (auto) 10.1 10 ^3/uL (1.6-8.6); Neutrophils % (auto) 83.4 % (37.0-80.0); Platelet Count (auto) 285 10^3/uL (140-450); Red Blood Cells 2.89 10^6/uL (4.5-5.90); Red Cell Distribution Width 13.3 % (11.8-14.3); White Blood Cell 12.1 10^3/uL (4.4-10.8)
--- NOTE | 2024-08-31 05:46 | DVH ---
CHEST RADIOGRAPH Indication:right pneumonia Technique: Single frontal view of the chest was obtained Comparison: XY CHEST PORTABLE on DOS: 08/30/24 FINDINGS: Lines and Tubes: Right apically oriented chest tube is unchanged. Lungs: Right lung opacities similar to prior study. Pleura: Right pleural effusion, unchanged. No pneumothorax. Cardiomediastinal contours: Stable cardiovascular silhouette. Bones: No acute osseous abnormality. IMPRESSION: 1. Right pleural effusion and right airspace disease similar to prior study. Right apically oriented chest tube.
[2024-08-31 09:55] LABS: Chloride 101 mmol/L (98-107); Sodium 131 mmol/L (136-145)
[2024-08-31 09:56] LABS: Anion Gap 6 (5-15); Calcium 8.5 mg/dL (8.7-10.4); Carbon Dioxide 24 mmol/L (20-31)
[2024-08-31 10:01] LABS: BUN/Creatinine Ratio 10.7 (10.0-20.0); Blood Urea Nitrogen 8 mg/dL (9-23); Glucose 133 mg/dL (74-106)
[2024-08-31] MEDS: KETOROLAC TROMETH 30 MG/ML 1ML VIAL IV PRN (12:53)
--- NOTE | 2024-08-31 14:10 | DVHPN2 ---
Progress Note Date Seen: Aug 31, 2024 Medical Necessity Reason Pt with a Central, PICC or Fol: No Objective vital signs Vital Sign Date Time Temp Pulse Resp B/P (MAP) Pulse Ox O2 Delivery O2 Flow Rate FiO2 08/31/24 13:00 77 17 114/60 (78) 98 08/31/24 12:00 99.0 99.0 08/31/24 12:00 Nasal Cannula* 5 40 Total Intake and Output 08/30/24 08/30/24 08/31/24 15:00 23:00 07:00 Intake Total 1460 ml 2010 ml 500 ml Output Total 150 ml 850 ml Balance 1310 ml 2010 ml -350 ml medications Current Medications Medications Dose Ordered Sig/Marisol Route Start Time Stop Time Status Last Admin Dose Admin Vancomycin HCl 0 ml @ 0 mls/hr UD IV 08/22/24 21:45 Ondansetron HCl 4 mg Q4HP PRN IV 08/22/24 21:45 Acetaminophen 650 mg Q6HP PRN PO 08/22/24 21:45 08/31/24 10:06 650 MG Nitroglycerin 0.4 mg Q5MINP PRN SL 08/22/24 21:45 Morphine Sulfate 2 mg Q30M PRN IV 08/22/24 21:45 Losartan Potassium 50 mg DAILY PO 08/23/24 10:00 08/31/24 09:12 50 MG Sertraline HCl 100 mg DAILY PO 08/23/24 10:00 08/31/24 09:12 100 MG Morphine Sulfate 2 mg Q4HPRN PRN IV 08/23/24 15:45 08/31/24 08:06 2 MG Acetaminophen/ Hydrocodone Bitart 1 tab Q6HPRN PRN PO 08/23/24 15:45 Hold 08/31/24 10:27 1 TAB Patient Own Medication 1 TID PRN PO 08/24/24 13:15 08/29/24 21:13 1 Guaifenesin/ Dextromethorphan 10 ml Q4HP PRN PO 08/25/24 13:30 08/30/24 21:41 10 ML Vancomycin HCl 300 ml @ 200 mls/hr Q8H IV 08/25/24 18:00 08/31/24 10:29 200 MLS/HR Ceftriaxone Sodium 50 ml @ 100 mls/hr DAILY@09 IV 08/30/24 09:00 08/31/24 09:13 100 MLS/HR Potassium Chloride/Dextrose/ Sod Cl 1,000 ml @ 120 mls/hr Q8H20M IV 08/30/24 09:30 08/31/24 10:31 120 MLS/HR Ketorolac Tromethamine 30 mg Q6HPRN PRN IV 08/31/24 10:45 09/05/24 10:44 08/31/24 12:53 30 MG laboratory and microbiology Laboratory Tests 08/31/24 09:03 08/31/24 04:37 Test 08/31/24 09:03 Range/Units Serum Glucose 133 H 74-106 mg/dL Problem List/Assessment/Plan Problem List/Assessment/Plan 08/31/24 c/o inadequate pain control, asked his nurse to give Toradol. will change pain Rx. small air leak, x ray improved. stable. Plan discussed with: Patient Dietary Evaluation Review Comments: Monitor PO intake to meet 75% of his needs Expected Outcomes/Goals: gradual weight loss. TONEY MARINELLI MD Aug 31, 2024 14:10
--- NOTE | 2024-08-31 17:03 | DVHPN2 ---
Progress Note Date Seen: Aug 31, 2024 Medical Necessity Reason Pt with a Central, PICC or Fol: No Subjective Patient reports: No new complaints Review of Systems: HEENT:Normal, CVS:Normal, RESPIRATORY:Normal, GI:Normal, :Normal, MSK:Normal, NEURO:Normal Objective vital signs Vital Sign Date Time Temp Pulse Resp B/P (MAP) Pulse Ox O2 Delivery O2 Flow Rate FiO2 08/31/24 16:03 80 15 121/61 08/31/24 16:00 100 Nasal Cannula* 5 40 08/31/24 12:00 99.0 99.0 Total Intake and Output 08/30/24 08/30/24 08/31/24 15:00 23:00 07:00 Intake Total 1460 ml 2009 ml 500 ml Output Total 150 ml 850 ml Balance 1310 ml 2010 ml -350 ml medications Current Medications Medications Dose Ordered Sig/Marisol Route Start Time Stop Time Status Last Admin Dose Admin Vancomycin HCl 0 ml @ 0 mls/hr UD IV 08/22/24 21:45 Ondansetron HCl 4 mg Q4HP PRN IV 08/22/24 21:45 Acetaminophen 650 mg Q6HP PRN PO 08/22/24 21:45 08/31/24 10:06 650 MG Nitroglycerin 0.4 mg Q5MINP PRN SL 08/22/24 21:45 Losartan Potassium 50 mg DAILY PO 08/23/24 10:00 08/31/24 09:12 50 MG Sertraline HCl 100 mg DAILY PO 08/23/24 10:00 08/31/24 09:12 100 MG Morphine Sulfate 2 mg Q4HPRN PRN IV 08/23/24 15:45 08/31/24 16:03 2 MG Acetaminophen/ Hydrocodone Bitart 1 tab Q6HPRN PRN PO 08/23/24 15:45 Hold 08/31/24 10:27 1 TAB Patient Own Medication 1 TID PRN PO 08/24/24 13:15 08/29/24 21:13 1 Guaifenesin/ Dextromethorphan 10 ml Q4HP PRN PO 08/25/24 13:30 08/30/24 21:41 10 ML Vancomycin HCl 300 ml @ 200 mls/hr Q8H IV 08/25/24 18:00 08/31/24 10:29 200 MLS/HR Ceftriaxone Sodium 50 ml @ 100 mls/hr DAILY@09 IV 08/30/24 09:00 08/31/24 09:13 100 MLS/HR Potassium Chloride/Dextrose/ Sod Cl 1,000 ml @ 120 mls/hr Q8H20M IV 08/30/24 09:30 08/31/24 10:31 120 MLS/HR Ketorolac Tromethamine 30 mg Q6HPRN PRN IV 08/31/24 10:45 09/05/24 10:44 08/31/24 12:53 30 MG Hydromorphone HCl 1 mg Q3HPRN PRN IV 08/31/24 14:15 Examination: GENERAL:Normal, HEENT:Normal, NECK:Normal, LUNGS:Normal, LUNGS:Abnormal (on oxygen, right chest tube), CVS:Normal, ABDOMEN:Normal, MSK:Normal, SKIN:Normal, NEURO:Normal, :Normal laboratory and microbiology Laboratory Tests 08/31/24 09:03 08/31/24 04:37 Test 08/31/24 09:03 Range/Units Serum Glucose 133 H 74-106 mg/dL Microbiology Date/Time Source Procedure Growth Status 08/30/24 12:12 Nose MRSA Screen - Final Complete 08/30/24 08:10 Pleural Fluid Gram Stain - Final Resulted 08/30/24 08:10 Pleural Fluid Anaerobic Culture - Preliminary Resulted 08/30/24 08:10 Pleural Fluid Aerobic Culture - Preliminary Resulted 08/23/24 05:34 Blood Blood Culture - Final NO GROWTH AFTER 5 DAYS OF INCUBATION. Complete Problem List/Assessment/Plan Problem List/Assessment/Plan #1 acute resp failure: cont oxygen #2 right empyema/pneumonia with sepsis: s/p thoracotomy, is #3 obesity #4 htn: hold meds #5 depression Plan discussed with: Patient, Spouse My Orders My Orders Orders - LUCILA SAHNI MD Procedure Category Date Status Time Complete Blood Count LAB 09/01/24 Verified 06:00 Comprehensive LAB 09/01/24 Verified Metabolic Panel 06:00 Chest Portable XY 09/01/24 Verified 06:00 Dietary Evaluation Review Comments: Monitor PO intake to meet 75% of his needs Expected Outcomes/Goals: gradual weight loss. Critical Care Time (mins): 38 (critical care time 38 mins) Date of Service: Aug 31, 2024 Billing Provider: LUCILA SAHNI MD Common Visit Codes: [id number] CARE 30-74 MIN LUCILA SAHNI MD Aug 31, 2024 17:03
[2024-08-31] MEDS: HYDROMORPHONE HCL 1 MG/ML INJ IV PRN (18:13)
[2024-09-01] VITALS (61 sets, daily range): BP systolic 100–137; BP diastolic 56–81; PULSE 68–124; RESP 11–30; TEMP 97.9–99.9; O2SAT 90–100
--- NOTE | 2024-09-01 04:13 | DVH ---
CHEST RADIOGRAPH Indication:RIGHT PNEUMONIA Technique: Single frontal view of the chest was obtained Comparison: XY CHEST PORTABLE on DOS: 08/31/24, XY CHEST PORTABLE on DOS: 08/30/24, XY CHEST XRAY 1 V IEW on DOS: 08/25/24, XY CHEST PORTABLE on DOS: 08/24/24, XY CHEST PORTABLE on DOS: 08/23/24, XY CHES T PORTABLE on DOS: 08/31/24 FINDINGS: Lines and Tubes: Right apically oriented chest tube is unchanged. Lungs: Right lung opacities similar to prior study. Pleura: Right pleural effusion, unchanged. No pneumothorax. Cardiomediastinal contours: Stable cardiovascular silhouette. Bones: No acute osseous abnormality. IMPRESSION: 1. Right pleural effusion and right airspace disease similar to prior study. Right apically oriented chest tube.
[2024-09-01 04:52] LABS: Basophils # (auto) 0 10 ^3/uL (0-0.2); Basophils % (auto) 0.3 % (0.0-2.0); Eosinophils # (auto) 0.1 10 ^3/uL (0-0.8); Hemoglobin 8.2 g/dL (13.5-17.5); Neutrophils # (auto) 9.4 10 ^3/uL (1.6-8.6)
[2024-09-01 04:55] LABS: Eosinophils % (auto) 0.7 % (0.0-7.0); Hematocrit 24.4 % (41.0-53.0); Lymphocytes % (auto) 8.6 % (10.0-50.0); Mean Corpuscular Hemoglobin 29.6 pg (28.0-32.0); Mean Corpuscular Hgb Conc. 33.5 g/dL (32.0-36.0); Mean Corpuscular Volume 88.3 fL (80.0-100.0); Monocytes % (auto) 9.1 % (0.0-12.0); Neutrophils % (auto) 81.3 % (37.0-80.0); Platelet Count (auto) 283 10^3/uL (140-450); Red Blood Cells 2.77 10^6/uL (4.5-5.90); Red Cell Distribution Width 13.3 % (11.8-14.3); White Blood Cell 11.6 10^3/uL (4.4-10.8)
[2024-09-01 05:16] LABS: Alanine Aminotransferase 99 U/L (7-40); Albumin 3.1 g/dL (3.2-4.8); Alkaline Phosphatase 187 U/L (46-116); Anion Gap 7 (5-15); Aspartate Aminotransferase 42 U/L (13-40); BUN/Creatinine Ratio 16.9 (10.0-20.0); Blood Urea Nitrogen 13 mg/dL (9-23); Calcium 8.5 mg/dL (8.7-10.4); Carbon Dioxide 23 mmol/L (20-31); Chloride 104 mmol/L (98-107); Glucose 112 mg/dL (74-106); Potassium 4.3 mmol/L (3.5-5.1); Sodium 134 mmol/L (136-145)
[2024-09-01 05:17] LABS: Bilirubin, Total 0.4 mg/dL (0.2-1.0); Total Protein 5.6 g/dL (5.7-8.2)
--- NOTE | 2024-09-01 14:10 | DVHPN2 ---
Progress Note Date Seen: Sep 01, 2024 Medical Necessity Reason Pt with a Central, PICC or Fol: No Objective vital signs Vital Sign Date Time Temp Pulse Resp B/P (MAP) Pulse Ox O2 Delivery O2 Flow Rate FiO2 09/01/24 13:45 86 22 97 09/01/24 12:00 Nasal Cannula* 4 36 09/01/24 12:00 97.9 97.9 Total Intake and Output 08/31/24 08/31/24 09/01/24 15:00 23:00 07:00 Intake Total 890 ml 940 ml 300 ml Output Total 2085 ml 1360 ml Balance 890 ml -1145 ml -1060 ml medications Current Medications Medications Dose Ordered Sig/Marisol Route Start Time Stop Time Status Last Admin Dose Admin Vancomycin HCl 0 ml @ 0 mls/hr UD IV 08/22/24 21:45 Ondansetron HCl 4 mg Q4HP PRN IV 08/22/24 21:45 Acetaminophen 650 mg Q6HP PRN PO 08/22/24 21:45 08/31/24 10:06 650 MG Nitroglycerin 0.4 mg Q5MINP PRN SL 08/22/24 21:45 Sertraline HCl 100 mg DAILY PO 08/23/24 10:00 09/01/24 09:39 100 MG Morphine Sulfate 2 mg Q4HPRN PRN IV 08/23/24 15:45 08/31/24 16:03 2 MG Acetaminophen/ Hydrocodone Bitart 1 tab Q6HPRN PRN PO 08/23/24 15:45 Hold 08/31/24 10:27 1 TAB Patient Own Medication 1 TID PRN PO 08/24/24 13:15 09/01/24 13:40 1 Guaifenesin/ Dextromethorphan 10 ml Q4HP PRN PO 08/25/24 13:30 08/30/24 21:41 10 ML Vancomycin HCl 300 ml @ 200 mls/hr Q8H IV 08/25/24 18:00 09/01/24 09:39 200 MLS/HR Ceftriaxone Sodium 50 ml @ 100 mls/hr DAILY@09 IV 08/30/24 09:00 09/01/24 09:31 100 MLS/HR Ketorolac Tromethamine 30 mg Q6HPRN PRN IV 08/31/24 10:45 09/05/24 10:44 11/1/24 06:32 30 MG Hydromorphone HCl 1 mg Q3HPRN PRN IV 08/31/24 14:15 09/01/24 13:24 1 MG laboratory and microbiology Laboratory Tests 09/01/24 04:43 Test 09/01/24 04:43 Range/Units Serum Glucose 112 H 74-106 mg/dL Problem List/Assessment/Plan Problem List/Assessment/Plan 09/01/24 no new complaints , patient resting comfortably in bed, NO SOB , 40cc output from chest tube, wounds clean dry and intact, patient advised to use incentive spirometer, continue with current treatment , discussed with Dr. Kearney Plan discussed with: Patient Dietary Evaluation Review Comments: Monitor PO intake to meet 75% of his needs Expected Outcomes/Goals: gradual weight loss. GARRY MARTINEZ [employer] Sep 01, 2024 14:10
--- NOTE | 2024-09-01 22:48 | DVHPN2 ---
Subjective -09/01-patient is still having cough, deep breaths also make him cough more. He is already taking Robitussin and Tessalon Perles. Surgery following. Reviewed: Care Plan, H&P, Labs, Medications Changes from previous H/P or p: No Changes General: Per HPI Objective Vitals Vital Signs Date Time Temp Pulse Resp B/P (MAP) Pulse Ox O2 Delivery O2 Flow Rate FiO2 09/01/24 22:31 86 22 107/75 09/01/24 21:45 96 Nasal Cannula* 4 36 09/01/24 20:00 99.9 99.9 Intake/Output Intake and Output 09/01/24 07:00 Intake Total 2130 ml Output Total 3445 ml Balance -1315 ml Intake Oral 400 ml IV Total 1730 ml Output Urine Total 3350 ml Chest Tube Drainage Total 95 ml Exam GEN: Healthy appearing, well-developed, NAD. HEENT: NC/AT; MMM. CV: RRR, no m/r/g. LUNGS: CTAB, no w/r/c. ABD: Soft, NT/ND, NBS, no masses or organomegaly. EXT: skin Warm, well perfused. no rashes. No clubbing, cyanosis, or edema. NEURO: Ambulating with no limitations. No focal deficits. Musculoskeletal: Normal sensory function, Normal motor function Psych/Mental Status: Mental status NL, Mood NL Medications Current Medications Medications Dose Ordered Sig/Marisol Route Start Time Stop Time Status Last Admin Dose Admin Vancomycin HCl 0 ml @ 0 mls/hr UD IV 08/22/24 21:45 Ondansetron HCl 4 mg Q4HP PRN IV 08/22/24 21:45 Acetaminophen 650 mg Q6HP PRN PO 08/22/24 21:45 08/31/24 10:06 Nitroglycerin 0.4 mg Q5MINP PRN SL 08/22/24 21:45 Sertraline HCl 100 mg DAILY PO 08/23/24 10:00 09/01/24 09:39 Morphine Sulfate 2 mg Q4HPRN PRN IV 08/23/24 15:45 08/31/24 16:03 Acetaminophen/ Hydrocodone Bitart 1 tab Q6HPRN PRN PO 08/23/24 15:45 09/01/24 20:42 Patient Own Medication 1 TID PRN PO 08/24/24 13:15 09/01/24 22:28 Guaifenesin/ Dextromethorphan 10 ml Q4HP PRN PO 08/25/24 13:30 09/01/24 18:03 Vancomycin HCl 300 ml @ 200 mls/hr Q8H IV 08/25/24 18:00 09/01/24 17:14 Ceftriaxone Sodium 50 ml @ 100 mls/hr DAILY@09 IV 08/30/24 09:00 09/01/24 09:31 Ketorolac Tromethamine 30 mg Q6HPRN PRN IV 08/31/24 10:45 09/05/24 10:44 Hold 09/01/24 06:32 Hydromorphone HCl 1 mg Q3HPRN PRN IV 08/31/24 14:15 09/01/24 22:31 Laboratory Results Laboratory Tests 09/01/24 04:43 Chemistry Test 09/01/24 04:43 Albumin 3.1 g/dL (3.2-4.8) L Calcium Level 8.5 mg/dL (8.7-10.4) L Total Protein 5.6 g/dL (5.7-8.2) L LFT Test 09/01/24 04:43 Alanine Aminotransferase (ALT) 99 U/L (7-40) H Alkaline Phosphatase 187 U/L (46-116) H Aspartate Amino Transferase (AST) 42 U/L (13-40) H Total Bilirubin 0.4 mg/dL (0.2-1.0) Urinalysis Test 08/22/24 21:04 Urine Color Light-yellow (Yellow) Urine Clarity Clear (Clear) Urine pH 5.5 (5.0-9.0) Urine Specific [place] 1.042 (1.001-1.035) Urine Protein Negative (Negative) Urine Ketones Negative (Negative) Urine Blood Negative /uL (Negative) Urine Nitrite Negative (Negative) Urine Bilirubin Negative (Negative) Urine Urobilinogen Normal mg/dL (Negative) Urine Leukocyte Esterase Negative /uL (Negative) Urine RBC 1 /hpf (0 - 3) Urine WBC <1 /hpf (0 - 3) Urine Squamous Epithelial Cells Few /hpf (<5) Urine Bacteria None seen /hpf (None Seen) Urine Glucose Normal mg/dL (Normal) Microbiology Microbiology Date/Time Source Procedure Growth Status 08/30/24 12:12 Nose MRSA Screen - Final Complete 08/30/24 08:10 Pleural Fluid Gram Stain - Final Resulted 08/30/24 08:10 Pleural Fluid Anaerobic Culture - Preliminary Resulted 08/30/24 08:10 Pleural Fluid Aerobic Culture - Preliminary Resulted 08/23/24 05:34 Blood Blood Culture - Final NO GROWTH AFTER 5 DAYS OF INCUBATION. Complete Labs and/or images reviewed: Labs reviewed by me, Image(s) reviewed by me Assessment/Plan Assessment/Plan updates -09/01- patient is still having cough, deep breaths also make him cough more. He is already taking Robitussin and Tessalon Perles. Surgery following. #1 acute resp failure: cont oxygen, wean to lowest setting to goal of O2 90-92% #2 right empyema/pneumonia with sepsis: s/p thoracotomy, IS, vanc/ctx #3 obesity #4 htn: hold meds #5 depression Critical care time 35 minutes Plan discussed with: Patient My Orders Orders - GRAY ZHU MD Procedure Category Date Status Time Transfer Orders XFER 09/01/24 Transmitted 18:44 Date of Service: Sep 01, 2024 Billing Provider: GRAY ZHU MD Common Visit Codes: [id number] CARE 30-74 MIN GRAY ZHU MD Sep 01, 2024 22:48
[2024-09-02] VITALS (24 sets, daily range): BP systolic 108–137; BP diastolic 58–79; PULSE 75–96; RESP 12–32; TEMP 98.5–99.3; O2SAT 94–100
[2024-09-02 04:52] LABS: Basophils # (auto) 0 10 ^3/uL (0-0.2); Basophils % (auto) 0.2 % (0.0-2.0); Eosinophils # (auto) 0.1 10 ^3/uL (0-0.8); Hematocrit 23.4 % (41.0-53.0); Hemoglobin 7.9 g/dL (13.5-17.5); Lymphocytes # (auto) 1.1 10 ^3/uL (0.4-5.4); Lymphocytes % (auto) 9.2 % (10.0-50.0); Mean Corpuscular Hemoglobin 29.6 pg (28.0-32.0); Mean Corpuscular Hgb Conc. 33.7 g/dL (32.0-36.0); Mean Corpuscular Volume 87.9 fL (80.0-100.0); Monocytes # (auto) 0.9 10 ^3/uL (0-1.3); Monocytes % (auto) 7.8 % (0.0-12.0); Neutrophils # (auto) 9.5 10 ^3/uL (1.6-8.6); Neutrophils % (auto) 81.8 % (37.0-80.0); Platelet Count (auto) 303 10^3/uL (140-450); Red Blood Cells 2.66 10^6/uL (4.5-5.90); Red Cell Distribution Width 13.3 % (11.8-14.3); White Blood Cell 11.6 10^3/uL (4.4-10.8)
[2024-09-02 05:11] LABS: Alanine Aminotransferase 108 U/L (7-40); Albumin 3.3 g/dL (3.2-4.8); Alkaline Phosphatase 221 U/L (46-116); Anion Gap 5 (5-15); Aspartate Aminotransferase 56 U/L (13-40); BUN/Creatinine Ratio 10.8 (10.0-20.0); Blood Urea Nitrogen 8 mg/dL (9-23); Calcium 8.8 mg/dL (8.7-10.4); Carbon Dioxide 25 mmol/L (20-31); Chloride 101 mmol/L (98-107); Glucose 105 mg/dL (74-106); Potassium 4.1 mmol/L (3.5-5.1); Sodium 131 mmol/L (136-145)
[2024-09-02 05:12] LABS: Bilirubin, Total 0.4 mg/dL (0.2-1.0); Total Protein 6.1 g/dL (5.7-8.2)
--- NOTE | 2024-09-02 09:23 | DVH ---
CHEST RADIOGRAPH Indication:INCREASED PAIN AT THORACOTOMY SITE Technique: Single frontal view of the chest was obtained Comparison: XY CHEST PORTABLE on DOS: 09/01/24, XY CHEST PORTABLE on DOS: 08/31/24, XY CHEST PORTABLE on DOS: 08/30/24 FINDINGS: Lines and Tubes: Right chest tube is unchanged. Lungs: Right upright lower lung zone opacity, unchanged. Pleura: Right pleural effusion, unchanged. No pneumothorax. Cardiomediastinal contours: Unremarkable Bones: No acute osseous abnormality. IMPRESSION: 1. No significant interval change in the right lung opacities and pleural effusion. No pneumothorax.
--- NOTE | 2024-09-02 10:41 | DVHPN2 ---
Progress Note Date Seen: Sep 02, 2024 Medical Necessity Reason Pt with a Central, PICC or Fol: No Objective vital signs Vital Sign Date Time Temp Pulse Resp B/P (MAP) Pulse Ox O2 Delivery O2 Flow Rate FiO2 09/02/24 10:00 97 09/02/24 10:00 15 Nasal Cannula* 3 32 09/02/24 08:00 84 09/02/24 07:00 113/67 (82) 09/02/24 06:00 99.3 99.3 Total Intake and Output 09/01/24 09/01/24 09/02/24 15:00 23:00 07:00 Intake Total 350 ml 900 ml 800 ml Output Total 750 ml 1240 ml Balance 350 ml 150 ml -440 ml medications Current Medications Medications Dose Ordered Sig/Marisol Route Start Time Stop Time Status Last Admin Dose Admin Vancomycin HCl 0 ml @ 0 mls/hr UD IV 08/22/24 21:45 Ondansetron HCl 4 mg Q4HP PRN IV 08/22/24 21:45 Acetaminophen 650 mg Q6HP PRN PO 08/22/24 21:45 08/31/24 10:06 650 MG Nitroglycerin 0.4 mg Q5MINP PRN SL 08/22/24 21:45 Sertraline HCl 100 mg DAILY PO 08/23/24 10:00 09/01/24 09:39 100 MG Morphine Sulfate 2 mg Q4HPRN PRN IV 08/23/24 15:45 08/31/24 16:03 2 MG Acetaminophen/ Hydrocodone Bitart 1 tab Q6HPRN PRN PO 08/23/24 15:45 Hold 09/02/24 06:38 1 TAB Patient Own Medication 1 TID PRN PO 08/24/24 13:15 09/01/24 22:28 1 Guaifenesin/ Dextromethorphan 10 ml Q4HP PRN PO 08/25/24 13:30 09/01/24 18:03 10 ML Vancomycin HCl 300 ml @ 200 mls/hr Q8H IV 08/25/24 18:00 09/02/24 01:41 200 MLS/HR Ceftriaxone Sodium 50 ml @ 100 mls/hr DAILY@09 IV 08/30/24 09:00 09/02/24 08:30 100 MLS/HR Ketorolac Tromethamine 30 mg Q6HPRN PRN IV 08/31/24 10:45 09/05/24 10:44 09/02/24 08:30 30 MG Hydromorphone HCl 1 mg Q3HPRN PRN IV 08/31/24 14:15 09/02/24 02:32 1 MG laboratory and microbiology Laboratory Tests 09/02/24 04:39 Test 09/02/24 04:39 Range/Units Serum Glucose 105 74-106 mg/dL Problem List/Assessment/Plan Problem List/Assessment/Plan 08/31/24 c/o inadequate pain control, asked his nurse to give Toradol. will change pain Rx. small air leak, x ray improved. stable. 09/02/24 FEELS OK, WOUND CLEAN AND WELL APPROXIMATED, CHEST TUBE WITHOUT AIR LEAK, X RAY REVIEWED, NO PNEUMOTHORAX, PLAN TO REMOVE CHEST TUBE ON WEDNESDAY Plan discussed with: Patient Dietary Evaluation Review Comments: Monitor PO intake to meet 75% of his needs Expected Outcomes/Goals: gradual weight loss. TONEY MARINELLI MD Sep 02, 2024 10:41
--- NOTE | 2024-09-02 20:43 | DVHPN2 ---
Subjective HPI 44-year-old male w PMHX HTN, kidney stones , presents for evaluation of shortness for breath. Patient reports being diagnosed with pneumonia two weeks ago and has completed treatment. He reports continuous shortness for breath and unable to take deep breaths. Reports some right-sided chest pain. He returned yesterday to the emergency department on outside facility was transferred for higher level of care for possible empyema. -09/01-patient is still having cough, deep breaths also make him cough more. He is already taking Robitussin and Tessalon Perles. Surgery following. -09/02 patient is feeling improved. He is unable to take a deep breath. D. causes worsening cough. Right chest tube continues to have slow sanguinous output. He is able to get out of bed. Labs show elevated but plateaued white count with left shift. Hyponatremia appears stable in low 130s. LFTs are elevated but stable as well. Reviewed: Care Plan, H&P, Labs, Medications Changes from previous H/P or p: No Changes General: Per HPI Objective Vitals Vital Signs Date Time Temp Pulse Resp B/P (MAP) Pulse Ox O2 Delivery O2 Flow Rate FiO2 09/02/24 20:32 88 95 132/64 09/02/24 18:00 98 09/02/24 18:00 Nasal Cannula* 2 28 09/02/24 13:00 98.6 98.6 Intake/Output Intake and Output 09/02/24 07:00 Intake Total 2050 ml Output Total 1990 ml Balance 60 ml Intake Oral 1100 ml IV Total 950 ml Output Urine Total 1900 ml Chest Tube Drainage Total 90 ml Exam GEN: Healthy appearing, well-developed, NAD. HEENT: NC/AT; MMM. CV: RRR, no m/r/g. LUNGS: No breath sounds to the detected at the right lower lobe region ABD: Soft, NT/ND, NBS, no masses or organomegaly. EXT: skin Warm, well perfused. no rashes. No clubbing, cyanosis, or edema. NEURO: Ambulating with no limitations. No focal deficits. Musculoskeletal: Normal sensory function, Normal motor function Psych/Mental Status: Mental status NL, Mood NL Medications Current Medications Medications Dose Ordered Sig/Marisol Route Start Time Stop Time Status Last Admin Dose Admin Vancomycin HCl 0 ml @ 0 mls/hr UD IV 08/22/24 21:45 Ondansetron HCl 4 mg Q4HP PRN IV 08/22/24 21:45 Acetaminophen 650 mg Q6HP PRN PO 08/22/24 21:45 08/31/24 10:06 650 MG Nitroglycerin 0.4 mg Q5MINP PRN SL 08/22/24 21:45 Sertraline HCl 100 mg DAILY PO 08/23/24 10:00 09/02/24 10:00 100 MG Morphine Sulfate 2 mg Q4HPRN PRN IV 08/23/24 15:45 08/31/24 16:03 2 MG Acetaminophen/ Hydrocodone Bitart 1 tab Q6HPRN PRN PO 08/23/24 15:45 Hold 09/02/24 06:38 1 TAB Patient Own Medication 1 TID PRN PO 08/24/24 13:15 09/01/24 22:28 1 Guaifenesin/ Dextromethorphan 10 ml Q4HP PRN PO 08/25/24 13:30 09/01/24 18:03 10 ML Vancomycin HCl 300 ml @ 200 mls/hr Q8H IV 08/25/24 18:00 09/02/24 16:55 200 MLS/HR Ceftriaxone Sodium 50 ml @ 100 mls/hr DAILY@09 IV 08/30/24 09:00 09/02/24 08:30 100 MLS/HR Ketorolac Tromethamine 30 mg Q6HPRN PRN IV 08/31/24 10:45 09/05/24 10:44 09/02/24 15:36 30 MG Hydromorphone HCl 1 mg Q3HPRN PRN IV 08/31/24 14:15 09/02/24 20:32 1 MG Laboratory Results Laboratory Tests 09/02/24 04:39 Chemistry Test 09/02/24 04:39 Albumin 3.3 g/dL (3.2-4.8) Calcium Level 8.8 mg/dL (8.7-10.4) Total Protein 6.1 g/dL (5.7-8.2) LFT Test 09/02/24 04:39 Alanine Aminotransferase (ALT) 108 U/L (7-40) H Alkaline Phosphatase 221 U/L (46-116) H Aspartate Amino Transferase (AST) 56 U/L (13-40) H Total Bilirubin 0.4 mg/dL (0.2-1.0) Urinalysis Test 08/22/24 21:04 Urine Color Light-yellow (Yellow) Urine Clarity Clear (Clear) Urine pH 5.5 (5.0-9.0) Urine Specific [place] 1.042 (1.001-1.035) Urine Protein Negative (Negative) Urine Ketones Negative (Negative) Urine Blood Negative /uL (Negative) Urine Nitrite Negative (Negative) Urine Bilirubin Negative (Negative) Urine Urobilinogen Normal mg/dL (Negative) Urine Leukocyte Esterase Negative /uL (Negative) Urine RBC 1 /hpf (0 - 3) Urine WBC <1 /hpf (0 - 3) Urine Squamous Epithelial Cells Few /hpf (<5) Urine Bacteria None seen /hpf (None Seen) Urine Glucose Normal mg/dL (Normal) Microbiology Microbiology Date/Time Source Procedure Growth Status 08/30/24 12:12 Nose MRSA Screen - Final Complete 08/30/24 08:10 Pleural Fluid Gram Stain - Final Resulted 08/30/24 08:10 Pleural Fluid Anaerobic Culture - Preliminary Resulted 08/30/24 08:10 Pleural Fluid Aerobic Culture - Preliminary Resulted 08/23/24 05:34 Blood Blood Culture - Final NO GROWTH AFTER 5 DAYS OF INCUBATION. Complete Labs and/or images reviewed: Labs reviewed by me, Image(s) reviewed by me Assessment/Plan Assessment/Plan updates --09/02 patient is feeling improved. He is unable to take a deep breath. D. causes worsening cough. Right chest tube continues to have slow sanguinous output. He is able to get out of bed. Labs show elevated but plateaued white count with left shift. Hyponatremia appears stable in low 130s. LFTs are elevated but stable as well. #1 acute resp failure: cont oxygen, wean to lowest setting to goal of O2 90-92% #2 right empyema/pneumonia with sepsis: s/p thoracotomy, IS, vanc/ctx #3 obesity #4 htn: hold meds #5 depression # transaminitis #hyponatremia #leukocytosis / neutrophilia# anemia (normocytic) Critical care time 35 minutes Plan discussed with: Patient Date of Service: Sep 02, 2024 Billing Provider: GRAY ZHU MD Common Visit Codes: [id number] CARE 30-74 MIN GRAY ZHU MD Sep 02, 2024 20:43
[2024-09-02] MEDS: PANTOPRAZOLE 40 MG/10 ML VIAL INJ IV ONE (21:51)
--- NOTE | 2024-09-02 21:51 | DVHINCON2 ---
DATE OF CONSULTATION: 09/02/2024 PULMONARY FOLLOWUP I am covering for Dr. Vega. HISTORY OF PRESENT ILLNESS: The patient was seen in the morning. Also was discussed with the patient's and the patient as well as the patient's bedside RN, Sonja. The patient is still complaining of some cough, minimal expectoration. His pain is under control with Toradol. His urine output has been stable. He is not running any fevers. He denies any significant shortness of breath. He is able to do about 1000 mL on incentive spirometry. PAST MEDICAL HISTORY, MEDICATIONS AND ALLERGIES: Noted. PHYSICAL EXAMINATION: GENERAL: Reveals he is stable. Awake and alert VITAL SIGNS: Heart rate is 80, respiratory rate is 18, blood pressure 120/68, saturations 98 on 2 liters. HEENT: Unremarkable. NECK: Supple, no JVD, no lymph nodes. No thyromegaly. CHEST: Reveals right basal rales with diminished air entry. No wheezing. COR: S1, S2. No murmurs. ABDOMEN: Soft, obese, nontender. Bowel sounds normal. No tenderness, guarding, rigidity or rebound. EXTREMITIES: No edema. LABORATORY WORK: Noted. WBC 11, hematocrit 23, platelet count is 303, 81% neutrophils. Serum chemistries significant for sodium 131. LFTs are marginally increased, alkaline phosphatase is 221. Other lab work were all reviewed. ____ Pleural fluid cultures have grown Streptococcus anginosus. No sensitivities available. Chest x-ray continues to show no significant interval change, but significant right-sided lung opacity and pleural effusion, which is unchanged from before. ASSESSMENT AND PLAN: The patient with history of loculated pleural effusion, status post chest tube placement, seems to be draining well. The drainage is stable and slowly decreasing. The patient's pain is under control. The patient remains on antibiotics, Rocephin and vancomycin, is receiving Robitussin for cough. Continue to titrate oxygen, if the room air saturations are greater than 90 can discontinue oxygen, can discontinue Christian. Continue incentive spirometry. When fluid output is decreased, can consider discontinue chest tube, but we would leave it to Dr. Kearney. Rest of the management per response. Vincent Marquis MD /MOISÉS/MARVIN TID: [id number] RECEIPT: [id number] cc: Vitor Martínez MD
[2024-09-03] VITALS (16 sets, daily range): BP systolic 104–127; BP diastolic 56–73; PULSE 72–101; RESP 14–27; TEMP 98–99.4; O2SAT 88–96
[2024-09-03] MEDS ORDERED: HYDROMORPHONE HCL 1 MG/ML INJ IV PRN (01:45)
[2024-09-03] MEDS ORDERED: MORPHINE SULFATE INJ 2 MG/ml SYRG IV PRN (01:45)
[2024-09-03] MEDS ORDERED: NITROGLYCERIN 0.4 MG SL TAB SL PRN ×2 (01:45→02:30)
[2024-09-03] MEDS ORDERED: guaiFENesin-DM 100/10mg/5ml SYR PO PRN (01:45)
[2024-09-03] MEDS ORDERED: ACETAMINOPHEN 325 MG TAB PO PRN ×2 (01:45)
[2024-09-03] MEDS ORDERED: KETOROLAC TROMETH 30 MG/ML 1ML VIAL IV PRN (01:45)
[2024-09-03] MEDS ORDERED: BENZONATATE 100MG CAPSULE PO PRN (01:45)
[2024-09-03] MEDS ORDERED: ONDANSETRON HCL 4 MG/2 ML VIAL IV PRN ×3 (01:45→02:30)
[2024-09-03] MEDS ORDERED: HYDROcodone-ACET 5/325MG TAB PO PRN (01:45)
[2024-09-03] MEDS ORDERED: VANCOMYCIN 1.5GM/300ML 300 ML IV SCH (02:00)
[2024-09-03] MEDS: KETOROLAC TROMETH 30 MG/ML 1ML VIAL IV PRN (03:00)
[2024-09-03] MEDS: VANCOMYCIN 1.5GM/300ML 300 ML IV SCH (03:00)
[2024-09-03 05:45] LABS: Basophils # (auto) 0 10 ^3/uL (0-0.2); Basophils % (auto) 0.3 % (0.0-2.0); Eosinophils # (auto) 0.1 10 ^3/uL (0-0.8); Eosinophils % (auto) 1.4 % (0.0-7.0); Hematocrit 24.6 % (41.0-53.0); Hemoglobin 8.4 g/dL (13.5-17.5); Lymphocytes # (auto) 0.9 10 ^3/uL (0.4-5.4); Lymphocytes % (auto) 11.1 % (10.0-50.0); Mean Corpuscular Hemoglobin 29.9 pg (28.0-32.0); Mean Corpuscular Hgb Conc. 34.2 g/dL (32.0-36.0); Mean Corpuscular Volume 87.6 fL (80.0-100.0); Monocytes # (auto) 0.6 10 ^3/uL (0-1.3); Monocytes % (auto) 6.9 % (0.0-12.0); Neutrophils # (auto) 6.8 10 ^3/uL (1.6-8.6); Neutrophils % (auto) 80.3 % (37.0-80.0); Platelet Count (auto) 409 10^3/uL (140-450); Red Blood Cells 2.81 10^6/uL (4.5-5.90); Red Cell Distribution Width 13.3 % (11.8-14.3); White Blood Cell 8.5 10^3/uL (4.4-10.8)
[2024-09-03] MEDS: HYDROMORPHONE HCL 1 MG/ML INJ IV PRN (06:25)
[2024-09-03] MEDS: SERTRALINE HCL 50 MG TAB PO SCH (09:00)
[2024-09-03] MEDS ORDERED: cefTRIAXone 1GM/50ML D5W 50 ML IV SCH (09:00)
[2024-09-03] MEDS: cefTRIAXone 1GM/50ML D5W 50 ML IV SCH (09:00)
[2024-09-03] MEDS: PANTOPRAZOLE 40 MG/10 ML VIAL INJ IV SCH (09:00)
[2024-09-03] MEDS: guaiFENesin-DM 100/10mg/5ml SYR PO PRN (09:02)
[2024-09-03] MEDS ORDERED: SERTRALINE HCL 50 MG TAB PO SCH (10:00)
[2024-09-03] MEDS ORDERED: PANTOPRAZOLE 40 MG/10 ML VIAL INJ IV SCH ×2 (10:00)
[2024-09-03] MEDS ORDERED: SODIUM BICARB 8.4% 50Meq/50ml SYR Vial IV ONE (15:45)
--- NOTE | 2024-09-03 17:44 | DVHPN ---
DATE: 09/03/2024 PULMONARY FOLLOWUP SUBJECTIVE: The patient was seen in the afternoon. The patient is doing well. He has minimal pain. He is doing incentive spirometry regularly pulling more than 1000 mL. Denies any significant shortness of breath, mild cough. Patient had about 70 mL of drainage from the chest tube yesterday. His urine output is stable. He is tolerating p.o. OBJECTIVE: VITAL SIGNS: Physical examination reveals vital signs are stable. He is afebrile. Respiratory rate was 18. GENERAL: He is in no distress. RESPIRATORY: No orthopnea, no accessory muscles. NECK: Supple. CHEST: Right-sided rales with diminished air entry. No wheezing. ABDOMEN: Soft, nontender, bowel sounds normal. EXTREMITIES: No edema. LABORATORY WORK: WBC count is better at 8.5, hematocrit 24, platelet count 409, rest was noted. All the other lab work were reviewed. No new changes. Cultures have so far been unremarkable except for one pleural fluid culture growing Streptococcus anginosus. ASSESSMENT AND PLAN: Loculated effusion, possible empyema, status post chest tube drainage. Clinically, doing better. Normal WBC count. No fevers. No significant secretions. Chest tube drainage is decreasing. Plan at this time is continue current antibiotics. Continue to follow up with Dr. Kearney for chest tube management. Can discontinue oxygen. Check room air saturations are greater than 90, discontinue oxygen. Incentive spirometry, physical therapy. Pain control. Dr. Vega resumes primary pulmonary care in the morning. MD MYLA Cha/SHAKEEL TID: [id number] RECEIPT: [id number]
--- NOTE | 2024-09-03 20:29 | DVHPN2 ---
Subjective HPI 44-year-old male w PMHX HTN, kidney stones , presents for evaluation of shortness for breath. Patient reports being diagnosed with pneumonia two weeks ago and has completed treatment. He reports continuous shortness for breath and unable to take deep breaths. Reports some right-sided chest pain. He returned yesterday to the emergency department on outside facility was transferred for higher level of care for possible empyema. -09/01-patient is still having cough, deep breaths also make him cough more. He is already taking Robitussin and Tessalon Perles. Surgery following. -09/02 patient is feeling improved. He is unable to take a deep breath. D. causes worsening cough. Right chest tube continues to have slow sanguinous output. He is able to get out of bed. Labs show elevated but plateaued white count with left shift. Hyponatremia appears stable in low 130s. LFTs are elevated but stable as well. -09/03 patient is doing well, he continues to have pain in the chest tube insertion site. He is also having pain with swallowing in the right lower ribs area. He remains able, tolerating p.o., OOB.. Chest tube drainage is decreasing but remains sanguinous. Reviewed: Care Plan, H&P, Labs, Medications Changes from previous H/P or p: No Changes General: Per HPI Objective Vitals Vital Signs Date Time Temp Pulse Resp B/P (MAP) Pulse Ox O2 Delivery O2 Flow Rate FiO2 09/03/24 18:00 95 09/03/24 18:00 18 94 Room Air* 0 21 09/03/24 16:00 98.0 127/56 (79) 98.0 Intake/Output Intake and Output 09/03/24 07:00 Intake Total 1040 ml Output Total 2960 ml Balance -1920 ml Intake Oral 740 ml IV Total 300 ml Output Urine Total 2900 ml Chest Tube Drainage Total 30 ml Drainage Total 30 ml Exam GEN: Healthy appearing, well-developed, NAD. HEENT: NC/AT; MMM. CV: RRR, no m/r/g. LUNGS: Right lower lobe now has some audible sounds, sound like rhonchi. Prior there were no breath sounds in this area ABD: Soft, NT/ND, NBS, no masses or organomegaly. EXT: skin Warm, well perfused. no rashes. No clubbing, cyanosis, or edema. NEURO: Ambulating with no limitations. No focal deficits. Musculoskeletal: Normal sensory function, Normal motor function Psych/Mental Status: Mental status NL, Mood NL Medications Current Medications Medications Dose Ordered Sig/Marisol Route Start Time Stop Time Status Last Admin Dose Admin Nitroglycerin 0.4 mg Q5MINP PRN SL 09/03/24 02:30 Sertraline HCl 100 mg DAILY PO 09/03/24 10:00 09/03/24 09:00 100 MG Morphine Sulfate 2 mg Q4HPRN PRN IV 09/03/24 02:30 Acetaminophen/ Hydrocodone Bitart 1 tab Q6HPRN PRN PO 09/03/24 02:30 Patient Own Medication 1 TID PRN PO 09/03/24 02:30 Guaifenesin/ Dextromethorphan 10 ml Q4HP PRN PO 09/03/24 02:30 09/03/24 14:48 10 ML Ceftriaxone Sodium 50 ml @ 100 mls/hr DAILY@09 IV 09/03/24 09:00 09/03/24 09:00 100 MLS/HR Ketorolac Tromethamine 30 mg Q6HPRN PRN IV 09/03/24 02:30 09/08/24 02:29 09/03/24 17:44 30 MG Hydromorphone HCl 1 mg Q3HPRN PRN IV 09/03/24 02:30 09/03/24 06:25 1 MG Pantoprazole Sodium 40 mg DAILY IV 09/03/24 10:00 09/03/24 09:00 40 MG Ondansetron HCl 4 mg Q4HP PRN IV 09/03/24 02:30 Acetaminophen 650 mg Q6HP PRN PO 09/03/24 02:30 Vancomycin HCl 300 ml @ 200 mls/hr Q8H IV 09/03/24 02:30 09/03/24 18:17 200 MLS/HR Laboratory Results Laboratory Tests 09/02/24 04:39 09/03/24 05:10 Urinalysis Test 08/22/24 21:04 Urine Color Light-yellow (Yellow) Urine Clarity Clear (Clear) Urine pH 5.5 (5.0-9.0) Urine Specific [place] 1.042 (1.001-1.035) Urine Protein Negative (Negative) Urine Ketones Negative (Negative) Urine Blood Negative /uL (Negative) Urine Nitrite Negative (Negative) Urine Bilirubin Negative (Negative) Urine Urobilinogen Normal mg/dL (Negative) Urine Leukocyte Esterase Negative /uL (Negative) Urine RBC 1 /hpf (0 - 3) Urine WBC <1 /hpf (0 - 3) Urine Squamous Epithelial Cells Few /hpf (<5) Urine Bacteria None seen /hpf (None Seen) Urine Glucose Normal mg/dL (Normal) Microbiology Microbiology Date/Time Source Procedure Growth Status 08/30/24 12:12 Nose MRSA Screen - Final Complete 08/30/24 08:10 Pleural Fluid Gram Stain - Final Resulted 08/30/24 08:10 Pleural Fluid Anaerobic Culture - Preliminary Resulted 08/30/24 08:10 Pleural Fluid Aerobic Culture - Preliminary Resulted 08/23/24 05:34 Blood Blood Culture - Final NO GROWTH AFTER 5 DAYS OF INCUBATION. Complete Labs and/or images reviewed: Labs reviewed by me, Image(s) reviewed by me Assessment/Plan Assessment/Plan updates ---09/03 patient is doing well, he continues to have pain in the chest tube insertion site. He is also having pain with swallowing in the right lower ribs area. He remains able, tolerating p.o., OOB.. Chest tube drainage is decreasing but remains sanguinous. His cough continues. Labs show elevated but plateaued white count with left shift. Hyponatremia appears stable in low 130s. LFTs are elevated but stable as well. #1 acute resp failure: cont oxygen, wean to lowest setting to goal of O2 90-92% #2 right empyema/pneumonia with sepsis: s/p thoracotomy, IS, vanc/ctx #3 obesity #4 htn: hold meds #5 depression # transaminitis #hyponatremia #leukocytosis / neutrophilia# anemia (normocytic) Critical care time 35 minutes Plan discussed with: Patient Date of Service: Sep 03, 2024 Billing Provider: GRAY ZHU MD Common Visit Codes: [id number] CARE 30-74 MIN GRAY ZHU MD Sep 03, 2024 20:29
[2024-09-03] MEDS: HYDROcodone-ACET 5/325MG TAB PO PRN (21:30)
[2024-09-04] VITALS (15 sets, daily range): BP systolic 108–135; BP diastolic 64–81; PULSE 73–100; RESP 13–24; TEMP 97.8–98.6; O2SAT 93–97
[2024-09-04 05:36] LABS: Basophils # (auto) 0 10 ^3/uL (0-0.2); Basophils % (auto) 0.3 % (0.0-2.0); Eosinophils # (auto) 0.2 10 ^3/uL (0-0.8); Eosinophils % (auto) 2.2 % (0.0-7.0); Hematocrit 25.6 % (41.0-53.0); Hemoglobin 8.7 g/dL (13.5-17.5); Lymphocytes % (auto) 12.7 % (10.0-50.0); Mean Corpuscular Hemoglobin 30.2 pg (28.0-32.0); Mean Corpuscular Hgb Conc. 33.9 g/dL (32.0-36.0); Monocytes # (auto) 0.5 10 ^3/uL (0-1.3); Monocytes % (auto) 6.9 % (0.0-12.0); Neutrophils % (auto) 77.9 % (37.0-80.0); Platelet Count (auto) 423 10^3/uL (140-450); Red Blood Cells 2.87 10^6/uL (4.5-5.90); Red Cell Distribution Width 13.4 % (11.8-14.3); White Blood Cell 7.7 10^3/uL (4.4-10.8)
[2024-09-04 05:43] LABS: Alanine Aminotransferase 333 U/L (7-40); Albumin 3.4 g/dL (3.2-4.8); Alkaline Phosphatase 318 U/L (46-116); Anion Gap 6 (5-15); BUN/Creatinine Ratio 11.1 (10.0-20.0); Blood Urea Nitrogen 9 mg/dL (9-23); Calcium 9.2 mg/dL (8.7-10.4); Carbon Dioxide 25 mmol/L (20-31); Chloride 105 mmol/L (98-107); Glucose 104 mg/dL (74-106); Potassium 4.5 mmol/L (3.5-5.1); Sodium 136 mmol/L (136-145)
[2024-09-04 05:44] LABS: Aspartate Aminotransferase 166 U/L (13-40); Bilirubin, Total 0.3 mg/dL (0.2-1.0); Total Protein 6.6 g/dL (5.7-8.2)
--- NOTE | 2024-09-04 08:29 | MEDREC ---
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
--- NOTE | 2024-09-04 10:30 | DVHPN2 ---
Progress Note Date Seen: Sep 04, 2024 Medical Necessity Reason Pt with a Central, PICC or Fol: No Subjective Patient reports: No new complaints Review of Systems: HEENT:Normal, CVS:Normal, RESPIRATORY:Normal, GI:Normal, :Normal, MSK:Normal, NEURO:Normal Objective vital signs Vital Sign Date Time Temp Pulse Resp B/P (MAP) Pulse Ox O2 Delivery O2 Flow Rate FiO2 09/04/24 08:00 83 20 95 Nasal Cannula* 11 2409/04/24 08:00 98.3 98.3 Total Intake and Output 09/03/24 09/03/24 09/04/24 15:00 23:00 07:00 Intake Total 350 ml 850 ml 640 ml Output Total 1285 ml 1885 ml Balance 350 ml -435 ml -1245 ml medications Current Medications Medications Dose Ordered Sig/Marisol Route Start Time Stop Time Status Last Admin Dose Admin Nitroglycerin 0.4 mg Q5MINP PRN SL 09/03/24 02:30 Sertraline HCl 100 mg DAILY PO 09/03/24 10:00 09/04/24 09:49 100 MG Morphine Sulfate 2 mg Q4HPRN PRN IV 09/03/24 02:30 Acetaminophen/ Hydrocodone Bitart 1 tab Q6HPRN PRN PO 09/03/24 02:30 09/03/24 21:30 1 TAB Patient Own Medication 1 TID PRN PO 09/03/24 02:30 Guaifenesin/ Dextromethorphan 10 ml Q4HP PRN PO 09/03/24 02:30 09/04/24 09:50 10 ML Ceftriaxone Sodium 50 ml @ 100 mls/hr DAILY@09 IV 09/03/24 09:00 09/04/24 09:49 100 MLS/HR Ketorolac Tromethamine 30 mg Q6HPRN PRN IV 09/03/24 02:30 09/08/24 02:29 09/04/24 08:22 30 MG Hydromorphone HCl 1 mg Q3HPRN PRN IV 09/03/24 02:30 09/03/24 06:25 1 MG Pantoprazole Sodium 40 mg DAILY IV 09/03/24 10:00 09/04/24 09:49 40 MG Ondansetron HCl 4 mg Q4HP PRN IV 09/03/24 02:30 Acetaminophen 650 mg Q6HP PRN PO 09/03/24 02:30 Vancomycin HCl 300 ml @ 200 mls/hr Q8H IV 09/03/24 02:30 09/04/24 02:35 200 MLS/HR Examination: GENERAL:Normal, HEENT:Normal, NECK:Normal, LUNGS:Normal, LUNGS:Abnormal (right chest tube), CVS:Normal, ABDOMEN:Normal, MSK:Normal, SKIN:Normal, NEURO:Normal, :Normal laboratory and microbiology Laboratory Tests 09/04/24 05:10 Test 09/04/24 05:10 Range/Units Serum Glucose 104 74-106 mg/dL Microbiology Date/Time Source Procedure Growth Status 08/30/24 12:12 Nose MRSA Screen - Final Complete 08/30/24 08:10 Pleural Fluid Gram Stain - Final Complete 08/30/24 08:10 Pleural Fluid Anaerobic Culture - Final Complete 08/30/24 08:10 Pleural Fluid Aerobic Culture - Final Complete 08/23/24 05:34 Blood Blood Culture - Final NO GROWTH AFTER 5 DAYS OF INCUBATION. Complete Problem List/Assessment/Plan Problem List/Assessment/Plan #1 acute resp failure: cont oxygen #2 right empyema/pneumonia with sepsis: s/p thoracotomy, is #3 obesity #4 htn: hold meds #5 depression #6 transaminitis: monitor, hep panel Plan discussed with: Patient Dietary Evaluation Review Comments: Monitor PO intake to meet 75% of his needs Expected Outcomes/Goals: gradual weight loss. Date of Service: Sep 04, 2024 Billing Provider: LUCILA SAHNI MD Common Visit Codes: [id number] INP/OBS CARE(HIGH) LUCILA SAHNI MD Sep 04, 2024 10:30
[2024-09-04 11:18] LABS: Hepatitis B Surface Antigen Negative (Negative)
[2024-09-04 11:39] LABS: Hepatitis A Ab IgM Negative; Hepatitis B Core IgM Negative
[2024-09-04 11:40] LABS: Hepatitis C Antibody Negative (Negative)
--- NOTE | 2024-09-04 12:59 | DVHPN2 ---
Progress Note Date Seen: Sep 04, 2024 Medical Necessity Reason Pt with a Central, PICC or Fol: No Objective vital signs Vital Sign Date Time Temp Pulse Resp B/P (MAP) Pulse Ox O2 Delivery O2 Flow Rate FiO2 09/04/24 11:00 90 22 108/66 (80) 94 09/04/24 10:00 Room Air* 0 21 09/04/24 08:00 97.8 97.8 Total Intake and Output 09/03/24 09/03/24 09/04/24 15:00 23:00 07:00 Intake Total 350 ml 850 ml 640 ml Output Total 1285 ml 1885 ml Balance 350 ml -435 ml -1245 ml medications Current Medications Medications Dose Ordered Sig/Marisol Route Start Time Stop Time Status Last Admin Dose Admin Nitroglycerin 0.4 mg Q5MINP PRN SL 09/03/24 02:30 Sertraline HCl 100 mg DAILY PO 09/03/24 10:00 09/04/24 09:49 100 MG Morphine Sulfate 2 mg Q4HPRN PRN IV 09/03/24 02:30 Acetaminophen/ Hydrocodone Bitart 1 tab Q6HPRN PRN PO 09/03/24 02:30 09/03/24 21:30 1 TAB Patient Own Medication 1 TID PRN PO 09/03/24 02:30 Guaifenesin/ Dextromethorphan 10 ml Q4HP PRN PO 09/03/24 02:30 09/04/24 09:50 10 ML Ceftriaxone Sodium 50 ml @ 100 mls/hr DAILY@09 IV 09/03/24 09:00 09/04/24 09:49 100 MLS/HR Hydromorphone HCl 1 mg Q3HPRN PRN IV 09/03/24 02:30 09/03/24 06:25 1 MG Ondansetron HCl 4 mg Q4HP PRN IV 09/03/24 02:30 Acetaminophen 650 mg Q6HP PRN PO 09/03/24 02:30 Vancomycin HCl 300 ml @ 200 mls/hr Q8H IV 09/03/24 02:30 09/04/24 11:15 200 MLS/HR Pantoprazole Sodium 40 mg DAILY@0600 PO 09/05/24 06:00 laboratory and microbiology Laboratory Tests 09/04/24 05:10 Test 09/04/24 05:10 Range/Units Serum Glucose 104 74-106 mg/dL Problem List/Assessment/Plan Problem List/Assessment/Plan 08/31/24 c/o inadequate pain control, asked his nurse to give Toradol. will change pain Rx. small air leak, x ray improved. stable. 09/02/24 FEELS OK, WOUND CLEAN AND WELL APPROXIMATED, CHEST TUBE WITHOUT AIR LEAK, X RAY REVIEWED, NO PNEUMOTHORAX, PLAN TO REMOVE CHEST TUBE ON Wednesday09/04/24 DOING WELL, WOUND CLEAN AND WELL APPROXIMATED, OUTPUT MINIMAL, NO AIR LEAK CHEST TUBE REMOVED, Plan discussed with: Patient Dietary Evaluation Review Comments: Monitor PO intake to meet 75% of his needs Expected Outcomes/Goals: gradual weight loss. TONEY MARINELLI MD Sep 04, 2024 12:59
[2024-09-04] MEDS: BENZONATATE 100MG CAPSULE PO PRN (18:53)
[2024-09-05] VITALS (13 sets, daily range): BP systolic 113–136; BP diastolic 65–86; PULSE 76–104; RESP 16–20; TEMP 98–99.5; O2SAT 92–98
[2024-09-05] MEDS: PANTOPRAZOLE 40 MG TAB PO SCH (05:05)
[2024-09-05 06:45] LABS: Alanine Aminotransferase 258 U/L (7-40); Albumin 3.2 g/dL (3.2-4.8); Alkaline Phosphatase 283 U/L (46-116); Anion Gap 9 (5-15); Aspartate Aminotransferase 85 U/L (13-40); BUN/Creatinine Ratio 11.4 (10.0-20.0); Blood Urea Nitrogen 9 mg/dL (9-23); Calcium 9.2 mg/dL (8.7-10.4); Carbon Dioxide 23 mmol/L (20-31); Chloride 104 mmol/L (98-107); Glucose 104 mg/dL (74-106); Potassium 4.1 mmol/L (3.5-5.1); Sodium 136 mmol/L (136-145)
[2024-09-05 06:46] LABS: Bilirubin, Total 0.3 mg/dL (0.2-1.0); Total Protein 6.2 g/dL (5.7-8.2)
--- NOTE | 2024-09-05 07:07 | DVH ---
CHEST RADIOGRAPH Indication:RIGHT EFFUSION Technique: Single frontal view of the chest was obtained Comparison: XY CHEST PORTABLE on DOS: 09/02/24 FINDINGS: Lines and Tubes: Right chest tube has been removed. Lungs: Right upper lobe consolidation similar to prior study. Pleura: Right pleural effusion. No pneumothorax. Cardiomediastinal contours: Unremarkable Bones: No acute osseous abnormality. Colleen along the right chest wall. IMPRESSION: 1. Right upper lobe consolidation similar to prior study. Right pleural effusion.
--- NOTE | 2024-09-05 11:31 | DVH ---
Procedure: CT CHEST WITHOUT CONTRAST Reason for study/Clinical History: RIGHT PNEUMONIA Comparison Study: Compared to prior study dated:08/25/24 Exam Date: 09/05/2024 10:41 AM TECHNIQUE: Multidetector CT of the chest was performed from the lung apices to the upper abdomen with out the use of intravenous contract. Axial, coronal and sagittal multiplanar reformats were performed . Radiation Dose Information: CT Dose: CTDI volume is 21.87 mGy. Dose-length product is 867.71 mGy*cm The dose indicators for CT are the volume Computed Tomography (CT) Dose Index (CTDIvol) and the Dose Length Product (DLP), and are measured in units of mGy and mGy-cm, respectively. These indicators are not patient dose, but values generated from the CT scanner acquisition factors. The report includes radiation exposure data for exposures received during this examination. FINDINGS: Lower neck: Normal thyroid. Lungs: There is a multiloculated right pleural effusion with associated atelactasis and consolidation throughout the right lung. There is some pleural air. Previously seen right pleural catheter has bee n removed. Pleural effusion appears complicated. Previously seen anterior lung abscess or empyema falsh ears more solid. Heart/Vascular Structures: Normal heart size. No pericardial effusion. Lymph Nodes: Mediastinal lymphadenoapthy measuring up to 13 mm in short axis. Pleura: Multi loculated right pleural effusion as above. Musculoskeletal: No acute osseous abnormality. Soft tissues: Normal. Upper abdomen: Limited portions of the upper abdomen are unremarkable. IMPRESSION: 1. Pleural catheter has been removed. Anterior lung abscess versus emphysema appears more solid. Mult i loculated right pleural effusion appears complicated. Associated atelectasis and consolidation in t he right lung. Mediastinal lymphadenoapthy. Overall findings appear mildly improved . Clinical correl ation and continued follow-up is recommended. Radiation optimization: All CT scans at this facility use at least one of these dose optimization lazaro hniques: automated exposure control mA and/or kV adjustment per patient size (includes targeted exam s where dose is matched to clinical indication) or iterative reconstruction. HS:Y
[2024-09-05] MEDS: MORPHINE SULFATE INJ 2 MG/ml SYRG IV PRN (12:36)
--- NOTE | 2024-09-05 15:27 | DVHPN2 ---
Progress Note Date Seen: Sep 05, 2024 Medical Necessity Reason Pt with a Central, PICC or Fol: No Subjective Patient reports: No new complaints Review of Systems: HEENT:Normal, CVS:Normal, RESPIRATORY:Normal, GI:Normal, :Normal, MSK:Normal, NEURO:Normal Objective vital signs Vital Sign Date Time Temp Pulse Resp B/P (MAP) Pulse Ox O2 Delivery O2 Flow Rate FiO2 09/05/24 12:36 104 19 115/70 09/05/24 12:34 98.7 94 98.7 09/05/24 10:00 Room Air 0.0 09/05/24 10:00 21 Total Intake and Output 09/04/24 09/04/24 09/05/24 15:00 23:00 07:00 Intake Total 950 ml 240 ml 850 ml Output Total 1550 ml 1 ml 4 ml Balance -600 ml 239 ml 846 ml medications Current Medications Medications Dose Ordered Sig/Marisol Route Start Time Stop Time Status Last Admin Dose Admin Nitroglycerin 0.4 mg Q5MINP PRN SL 09/03/24 02:30 Sertraline HCl 100 mg DAILY PO 09/03/24 10:00 09/05/24 10:18 100 MG Morphine Sulfate 2 mg Q4HPRN PRN IV 09/03/24 02:30 09/05/24 12:36 2 MG Acetaminophen/ Hydrocodone Bitart 1 tab Q6HPRN PRN PO 09/03/24 02:30 09/05/24 08:41 1 TAB Patient Own Medication 1 TID PRN PO 09/03/24 02:30 09/05/24 09:46 1 Guaifenesin/ Dextromethorphan 10 ml Q4HP PRN PO 09/03/24 02:30 09/05/24 12:35 10 ML Ceftriaxone Sodium 50 ml @ 100 mls/hr DAILY@09 IV 09/03/24 09:00 09/05/24 08:41 100 MLS/HR Hydromorphone HCl 1 mg Q3HPRN PRN IV 09/03/24 02:30 09/03/24 06:25 1 MG Ondansetron HCl 4 mg Q4HP PRN IV 09/03/24 02:30 Acetaminophen 650 mg Q6HP PRN PO 09/03/24 02:30 Vancomycin HCl 300 ml @ 200 mls/hr Q8H IV 09/03/24 02:30 09/05/24 09:46 200 MLS/HR Pantoprazole Sodium 40 mg DAILY@0600 PO 09/05/24 06:00 09/05/24 05:05 40 MG Examination: GENERAL:Normal, HEENT:Normal, NECK:Normal, LUNGS:Normal, LUNGS:Abnormal (decreased right side), CVS:Normal, ABDOMEN:Normal, MSK:Normal, SKIN:Normal, NEURO:Normal, :Normal laboratory and microbiology Laboratory Tests 09/05/24 05:17 09/04/24 05:10 Test 09/05/24 05:17 Range/Units Serum Glucose 104 74-106 mg/dL Microbiology Date/Time Source Procedure Growth Status 08/30/24 12:12 Nose MRSA Screen - Final Complete 08/30/24 08:10 Pleural Fluid Gram Stain - Final Complete 08/30/24 08:10 Pleural Fluid Anaerobic Culture - Final Complete 08/30/24 08:10 Pleural Fluid Aerobic Culture - Final Complete 08/23/24 05:34 Blood Blood Culture - Final NO GROWTH AFTER 5 DAYS OF INCUBATION. Complete Problem List/Assessment/Plan Problem List/Assessment/Plan #1 acute resp failure: cont oxygen #2 right empyema/pneumonia with sepsis: s/p thoracotomy, is, ct chest- dw dr Kearney, will review #3 obesity #4 htn: hold meds #5 depression #6 transaminitis: monitor, hep panel Plan discussed with: Patient My Orders My Orders Orders - LUCILA SAHNI MD Procedure Category Date Status Time Chest Without Contrast CT 09/05/24 Resulted 09:58 Complete Blood Count LAB 09/06/24 Verified 06:00 Comprehensive LAB 09/06/24 Verified Metabolic Panel 06:00 Chest Portable XY 09/06/24 Verified 06:00 Dietary Evaluation Review Comments: Monitor PO intake to meet 75% of his needs Expected Outcomes/Goals: gradual weight loss. Date of Service: Sep 05, 2024 Billing Provider: LUCILA SAHNI MD Common Visit Codes: [id number] INP/OBS CARE(HIGH) LUCILA SAHNI MD Sep 05, 2024 15:27
[2024-09-05] MEDS ORDERED: guaiFENesin-DM 100/10mg/5ml SYR PO PRN (16:00)
[2024-09-05] MEDS: IPRATROPIUM BROM 0.5 MG/2.5ML INH SOL NEB SCH (19:01)
[2024-09-05] MEDS: ALBUTEROL SULF 2.5 MG/0.5ML(0.5%) NEB SOLN NEB SCH (19:01)
[2024-09-06] VITALS (16 sets, daily range): BP systolic 106–130; BP diastolic 60–75; PULSE 63–110; RESP 16–22; TEMP 98.1–101; O2SAT 92–99
[2024-09-06] MEDS: ACETAMINOPHEN 325 MG TAB PO PRN (01:36)
--- NOTE | 2024-09-06 05:17 | DVH ---
CHEST RADIOGRAPH Indication:right empyema Technique: Single frontal view of the chest was obtained COMPARISON: XY CHEST PORTABLE on DOS: 09/05/24, XY CHEST PORTABLE on DOS: 09/02/24, XY CHEST PORTABLE o n DOS: 09/01/24 FINDINGS: Lines and Tubes: None Lungs: Multifocal right lung airspace disease. Pleura: Trace right pleural effusion. No pneumothorax. Cardiomediastinal contours: Unremarkable Bones: Unremarkable IMPRESSION: Multifocal right lung airspace disease. Trace right pleural effusion. No appreciable pneumothorax.
[2024-09-06 06:37] LABS: Basophils # (auto) 0 10 ^3/uL (0-0.2); Eosinophils # (auto) 0.1 10 ^3/uL (0-0.8); Eosinophils % (auto) 1.6 % (0.0-7.0); Lymphocytes # (auto) 1.1 10 ^3/uL (0.4-5.4); Monocytes # (auto) 0.7 10 ^3/uL (0-1.3); Nucleated Red Blood Cells % 0.1 %
[2024-09-06 06:39] LABS: Basophils % (auto) 0.4 % (0.0-2.0); Hematocrit 24.3 % (41.0-53.0); Hemoglobin 8.4 g/dL (13.5-17.5); Mean Corpuscular Hemoglobin 30.2 pg (28.0-32.0); Mean Corpuscular Hgb Conc. 34.5 g/dL (32.0-36.0); Mean Corpuscular Volume 87.6 fL (80.0-100.0); Monocytes % (auto) 7.6 % (0.0-12.0); Neutrophils # (auto) 6.8 10 ^3/uL (1.6-8.6); Neutrophils % (auto) 77.4 % (37.0-80.0); Platelet Count (auto) 445 10^3/uL (140-450); Red Blood Cells 2.77 10^6/uL (4.5-5.90); Red Cell Distribution Width 13.7 % (11.8-14.3); White Blood Cell 8.8 10^3/uL (4.4-10.8)
[2024-09-06 06:53] LABS: Alanine Aminotransferase 229 U/L (7-40); Albumin 3.4 g/dL (3.2-4.8); Alkaline Phosphatase 279 U/L (46-116); Anion Gap 7 (5-15); Aspartate Aminotransferase 79 U/L (13-40); BUN/Creatinine Ratio 9.5 (10.0-20.0); Blood Urea Nitrogen 9 mg/dL (9-23); Calcium 9.1 mg/dL (8.7-10.4); Carbon Dioxide 24 mmol/L (20-31); Chloride 104 mmol/L (98-107); Glucose 133 mg/dL (74-106); Potassium 4.1 mmol/L (3.5-5.1); Sodium 135 mmol/L (136-145)
[2024-09-06 06:54] LABS: Bilirubin, Total 0.3 mg/dL (0.2-1.0); Total Protein 6.3 g/dL (5.7-8.2)
--- NOTE | 2024-09-06 10:59 | DVHPN2 ---
Progress Note Date Seen: Sep 06, 2024 Medical Necessity Reason Pt with a Central, PICC or Fol: No Objective vital signs Vital Sign Date Time Temp Pulse Resp B/P (MAP) Pulse Ox O2 Delivery O2 Flow Rate FiO2 09/06/24 09:21 98.4 97 19 127/74 (91) 92 98.4 09/06/24 07:08 Nasal Cannula 09/05/24 20:00 0 21 Total Intake and Output 09/05/24 09/05/24 09/06/24 15:00 23:00 07:00 Intake Total 800 ml 1100 ml Balance 800 ml 1100 ml medications Current Medications Medications Dose Ordered Sig/Marisol Route Start Time Stop Time Status Last Admin Dose Admin Nitroglycerin 0.4 mg Q5MINP PRN SL 09/03/24 02:30 Sertraline HCl 100 mg DAILY PO 09/03/24 10:00 09/06/24 09:17 100 MG Morphine Sulfate 2 mg Q4HPRN PRN IV 09/03/24 02:30 09/05/24 12:36 2 MG Acetaminophen/ Hydrocodone Bitart 1 tab Q6HPRN PRN PO 09/03/24 02:30 09/05/24 17:52 1 TAB Patient Own Medication 1 TID PRN PO 09/03/24 02:30 09/06/24 05:30 1 Guaifenesin/ Dextromethorphan 10 ml Q4HP PRN PO 09/03/24 02:30 09/06/24 10:51 10 ML Ceftriaxone Sodium 50 ml @ 100 mls/hr DAILY@09 IV 09/03/24 09:00 09/06/24 09:17 100 MLS/HR Hydromorphone HCl 1 mg Q3HPRN PRN IV 09/03/24 02:30 09/03/24 06:25 1 MG Ondansetron HCl 4 mg Q4HP PRN IV 09/03/24 02:30 Acetaminophen 650 mg Q6HP PRN PO 09/03/24 02:30 09/06/24 01:36 650 MG Vancomycin HCl 300 ml @ 200 mls/hr Q8H IV 09/03/24 02:30 09/06/24 10:42 200 MLS/HR Pantoprazole Sodium 40 mg DAILY@0600 PO 09/05/24 06:00 09/06/24 05:23 40 MG Albuterol 2.5 mg Q6HWA [facility] 09/05/24 18:00 09/06/24 07:08 2.5 MG Ipratropium [place] 0.5 mg Q6HWA [facility] 09/05/24 18:00 09/06/24 07:08 0.5 MG Guaifenesin/ Dextromethorphan 10 ml Q4HP PRN PO 09/05/24 16:00 laboratory and microbiology Laboratory Tests 09/06/24 05:22 Test 09/06/24 05:22 Range/Units Serum Glucose 133 H 74-106 mg/dL Problem List/Assessment/Plan Problem List/Assessment/Plan 08/31/24 c/o inadequate pain control, asked his nurse to give Toradol. will change pain Rx. small air leak, x ray improved. stable. 09/02/24 FEELS OK, WOUND CLEAN AND WELL APPROXIMATED, CHEST TUBE WITHOUT AIR LEAK, X RAY REVIEWED, NO PNEUMOTHORAX, PLAN TO REMOVE CHEST TUBE ON Wednesday09/04/24 DOING WELL, WOUND CLEAN AND WELL APPROXIMATED, OUTPUT MINIMAL, NO AIR LEAK CHEST TUBE REMOVED, 09/06/24 feels "OK, JUST TIRED", easy fatigability, as expected, wound clean and well approximated, lungs with good excursion, no rales, cxr reviewed. no effusion, no pneumothorax. from surgical point of view can be discharged with po antibiotics, to return to see me in [address] scan in about 6 weeks Plan discussed with: Patient Dietary Evaluation Review Comments: Monitor PO intake to meet 75% of his needs Expected Outcomes/Goals: gradual weight loss. TONEY MARINELLI MD Sep 06, 2024 10:59
[2024-09-07] VITALS (9 sets, daily range): BP systolic 114–232; BP diastolic 66–78; PULSE 87–112; RESP 18–24; TEMP 97.9–99.2; O2SAT 92–96
--- NOTE | 2024-09-07 11:26 | DVHDS2 ---
Discharge Summary Date of Admission Aug 22, 2024 at 21:44 Labs/Diagnostic Data: Laboratory Results Test 09/07/24 08:52 09/06/24 05:22 09/04/24 05:10 08/30/24 04:42 Vancomycin Level Trough 17.9 ug/mL (5-10) White Blood Count 8.8 10^3/uL (4.4-10.8) Red Blood Count 2.77 10^6/uL (4.5-5.90) Hemoglobin 8.4 g/dL (13.5-17.5) Hematocrit 24.3 % (41.0-53.0) Mean Corpuscular Volume 87.6 fL (80.0-100.0) Mean Corpuscular Hemoglobin 30.2 pg (28.0-32.0) Mean Corpuscular Hemoglobin Concent 34.5 g/dL (32.0-36.0) Red Cell Distribution Width 13.7 % (11.8-14.3) Platelet Count 445 10^3/uL (140-450) Mean Platelet Volume 5.9 fL (6.9-10.8) Neutrophils (%) (Auto) 77.4 % (37.0-80.0) Lymphocytes (%) (Auto) 13.0 % (10.0-50.0) Monocytes (%) (Auto) 7.6 % (0.0-12.0) Eosinophils (%) (Auto) 1.6 % (0.0-7.0) Basophils (%) (Auto) 0.4 % (0.0-2.0) Neutrophils # (Auto) 6.8 10 ^3/uL (1.6-8.6) Lymphocytes # (Auto) 1.1 10 ^3/uL (0.4-5.4) Monocytes # (Auto) 0.7 10 ^3/uL (0-1.3) Eosinophils # (Auto) 0.1 10 ^3/uL (0-0.8) Basophils # (Auto) 0 10 ^3/uL (0-0.2) Nucleated Red Blood Cells 0.1 % Sodium Level 135 mmol/L (136-145) Potassium Level 4.1 mmol/L (3.5-5.1) Chloride Level 104 mmol/L (98-107) Carbon Dioxide Level 24 mmol/L (20-31) Anion Gap 7 (5-15) Blood Urea Nitrogen 9 mg/dL (9-23) Creatinine 0.95 mg/dL (0.700-1.30) Glomerular Filtration Rate Calc 100 mL/min (>90) BUN/Creatinine Ratio 9.5 (10.0-20.0) Serum Glucose 133 mg/dL (74-106) Calcium Level 9.1 mg/dL (8.7-10.4) Total Bilirubin 0.3 mg/dL (0.2-1.0) Aspartate Amino Transferase (AST) 79 U/L (13-40) Alanine Aminotransferase (ALT) 229 U/L (7-40) Alkaline Phosphatase 279 U/L (46-116) Total Protein 6.3 g/dL (5.7-8.2) Albumin 3.4 g/dL (3.2-4.8) Hepatitis A IgM Antibody Negative Hepatitis B Surface Antigen Negative (Negative) Hepatitis B Core IgM Antibody Negative Hepatitis C Antibody Negative (Negative) Prothrombin Time 13.5 sec (9.3-11.8) Prothrombin Time INR 1.30 (0.9-1.15) Activated Partial Thromboplast Time 33.6 SEC (24.5-34.5) Test 08/23/24 16:07 08/23/24 09:32 08/22/24 21:19 08/22/24 21:04 Miscellaneous Referred Test ([facility] Specimen Type Arterial Blood Gas Sample Site Right radial Blood Gas Patient Temperature 37.0 Arterial Blood Date Drawn [id number] Arterial Blood pH 7.492 (7.350-7.450) Arterial Blood Partial Pressure CO2 26.5 mmHg (35.0-48.0) Arterial Blood Partial Pressure O2 77.4 mmHg (83.0-108.0) Arterial Blood HCO3 19.8 mmol/L (21.0-28.0) Arterial Blood Oxygen Saturation 95.1 % (94.0-98.0) Arterial Blood Base Excess -2.3 mmol/L (-2.0-3.0) Arterial Blood Oxyhemoglobin 94.1 % (94.0-98.0) Arterial Blood Carboxyhemoglobin 0.7 % (0.5-1.5) Arterial Blood Methemoglobin 0.4 % (0.0-1.5) Robin Test Yes Blood Gas Total Hemoglobin 11.80 g/dL (13.5-17.5) Blood Gas Liter Flow 4.00 Blood Gas Modality Nasal cannula FiO2 % 36.0 Lactic Acid Level 1.5 mmol/L (0.4-2.0) Troponin I High Sensitivity 5 ng/L (</=54) B-Type Natriuretic Peptide 13.88 pg/mL (0-100) Urine Color Light-yellow (Yellow) Urine Clarity Clear (Clear) Urine pH 5.5 (5.0-9.0) Urine Specific [place] 1.042 (1.001-1.035) Urine Protein Negative (Negative) Urine Ketones Negative (Negative) Urine Blood Negative /uL (Negative) Urine Nitrite Negative (Negative) Urine Bilirubin Negative (Negative) Urine Urobilinogen Normal mg/dL (Negative) Urine Leukocyte Esterase Negative /uL (Negative) Urine RBC 1 /hpf (0 - 3) Urine WBC <1 /hpf (0 - 3) Urine Squamous Epithelial Cells Few /hpf (<5) Urine Bacteria None seen /hpf (None Seen) Urine Glucose Normal mg/dL (Normal) Other Laboratory Tests 09/06/24 05:22 Discharge Statement: "Patient was advised to return to the ER or call 911 if any headaches, dizziness, shortness of breath, chest pain, abdominal pain, bleeding, fevers, or worsening of medical condition. Patient was counseled about treatment plan, medications, possible side effects, patientverbalized understanding. All questions were answered to the best of my ability. This discharge took greater then 30 minutes in planning, reviewing documentation, counseling the patient, and discussing with other team members." ASSESSMENT ASSESSMENT Assessment FRANK OROZCO MD Sep 07, 2024 11:26
[2024-09-07] MEDS ORDERED: BACDST PO (11:29)
[2024-09-07] MEDS ORDERED: LEVO500T91 PO (11:29)
[2024-09-07] MEDS ORDERED: HYDR-4902 PO (11:29)
== END 2024-09-07 14:49 | disposition home or self-care (01) | DRG 853 ==
LOC: EDBD 18:40 → ER 18:40 → TELE 21:44 → TELE-WESTW 23:18 → WEST WING 08-24 18:38 → ICU CENTRL 08-30 10:01 → DOU IN ICU 09-02 08:00 → TELE-WESTW 09-04 14:43
PROVIDERS: ADMIT Student in an Organized Health Care Education/Training Program; ATTEND Internal Medicine
PROC: 0W9930Z Drainage of Right Pleural Cavity with Drainage Device, Percutaneous Approach (ICD-10-PCS; 2024-08-23)
PROC: 0BNK0ZZ Release Right Lung, Open Approach (ICD-10-PCS; 2024-08-30)
PROC: 0BCK0ZZ Extirpation of Matter from Right Lung, Open Approach (ICD-10-PCS; principal; 2024-08-30 07:28)
DX: A41.9 Sepsis, unspecified organism (principal); J18.9 Pneumonia, unspecified organism; J96.01 Acute respiratory failure with hypoxia; J86.9 Pyothorax without fistula; J90 Pleural effusion, not elsewhere classified; D68.9 Coagulation defect, unspecified; E87.1 Hypo-osmolality and hyponatremia; I10 Essential (primary) hypertension; E66.9 Obesity, unspecified; F32.A Depression, unspecified; D64.9 Anemia, unspecified; Z87.442 Personal history of urinary calculi; Z88.0 Allergy status to penicillin; Z88.5 Allergy status to narcotic agent; Z83.3 Family history of diabetes mellitus; Z68.33 Body mass index [BMI] 33.0-33.9, adult; Z82.49 Family history of ischemic heart disease and other diseases of the circulatory system; Z80.1 Family history of malignant neoplasm of trachea, bronchus and lung; Z87.891 Personal history of nicotine dependence; Z79.899 Other long term (current) drug therapy
CPT/HCPCS: 10005; 36415; 36600; 71045; 71250; 77012; 80048; 80053; 80074; 80202; 81001; 82565; 82805; 83605; 83880; 84484; 85025; 85610; 85730; 86850; 86900; 86901; 87040; 87070; 87075; 87077; 87081; 87205; 93005; 94640; 99291; A4223; A4565; G0378; J1100; J1885; J1956; J2003; J2250; J2405; J2470; J2704; J3430

== ENCOUNTER 2024-10-05 18:02 | Inpatient (IN) | payer OTHER ==
[~2024-10-05] VITALS: Ht 172.7 cm; Wt 97.0 kg
[~2024-10-05 18:02] MED LIST: AMPH20TA2 PO; BACDST PO; CELE100C82 PO; HYDR-4902 PO; LEVO500T91 PO; LOSA-534 PO; SERT-377 PO
[2024-10-05 20:25] VITALS: BP 137/85; PULSE 97; RESP 20; TEMP 98.8; O2SAT 98
[2024-10-05 21:33] VITALS: BP 137/85; PULSE 97; RESP 20; TEMP 98.8; O2SAT 97
[2024-10-05] MEDS ORDERED: TRAZ-227 PO (22:03)
[2024-10-05] MEDS ORDERED: METH-1181 PO (22:03)
[2024-10-05] MEDS ORDERED: ACETAMINOPHEN 325 MG TAB PO PRN (23:00)
[2024-10-05] MEDS ORDERED: IPRATROPIUM BROM 0.5 MG/2.5ML INH SOL NEB PRN (23:00)
[2024-10-05] MEDS ORDERED: MORPHINE SULFATE INJ 2 MG/ml SYRG IV PRN (23:00)
[2024-10-05] MEDS ORDERED: hydrALAZINE HCL 20 MG/ML VL IV PRN (23:00)
[2024-10-05] MEDS ORDERED: DOCUSATE SOD 100 MG CAP PO PRN (23:00)
[2024-10-05] MEDS ORDERED: ONDANSETRON HCL 4 MG/2 ML VIAL IV PRN (23:00)
[2024-10-05] MEDS ORDERED: ALBUTEROL SULF 2.5 MG/0.5ML(0.5%) NEB SOLN NEB PRN (23:00)
[2024-10-05] MEDS ORDERED: NITROGLYCERIN 0.4 MG SL TAB SL PRN (23:00)
--- NOTE | 2024-10-05 23:18 | DVHHP2 ---
History of Present Illness Reason for Visit: Acute respiratory distress History of Present Illness The patient is a 44-year-old male with multiple past medical history including depression, kidney stones, pleural effusion, and hypertension who presented to [facility] with complaint of shortness of breaths. Patient reports symptoms progressively get worse with chest pain, SOB at rest, when ambulating, on exertion, getting worse that prompted this visit. Patient was seen and evaluated at the facility, x-ray was done on September 27, 2024 that shows moderate pleural effusion with large atelectasis of the right lungs. Blood pressure 137/85, heart rate 87, temperature 98.8 F, O2 saturation 97% on oxygen. Patient was stabilized and then transferred to [facility] for ongoing care secondary to higher level of care. On my assessment, patient denied chest pain at this moment, no headache, no dizziness, no diaphoresis, no abdominal pain, no diarrhea, no nausea, no vomiting, no fever, no chills. Patient was admitted for further evaluation and medical management. Past Medical History GERD, depression, kidney stone, hypertension, insomnia ADHD, migraine, low back pain, hearing loss of both ear. Past Surgical History Left knee surgery, shrapnel removal, vasectomy, Family History Reviewed, noncontributory to the management of this case. Past Social History The patient lives at home, denies smoking, alcohol or illicit drugs abuse. Review of Systems Constitutional: No: Fever, Chills, Sweats, Weakness, Malaise, Other Eyes: No: Pain, Vision change, Conjunctivae inflammation, Eyelid inflammation, Other, Redness ENT: No: Ear pain, Ear discharge, Nose pain, Nose discharge, Nose congestion, Mouth pain, Mouth swelling, Throat pain, Throat swelling, Other Respiratory: Shortness of breath, SOB with excertion, Other (SOB at rest); No: Cough, Dry, Wheezing, Hemoptysis, Pleuritic Pain, Sputum, Wheezing Cardiovascular: Chest Pain; No: Palpitations, Orthopnea, Paroxysmal Noc. Dyspnea, Edema, Lt Headedness, Other Gastrointestinal: No: Nausea, Vomiting, Abdominal Pain, Diarrhea, Constipation, Melena, Hematochezia, Other Genitourinary: No Dysuria, No Frequency, No Incontinence, No Hematuria, No Retention, No Other Musculoskeletal: No: other, neck pain, shoulder pain, arm pain, back pain, hand pain, leg pain, foot pain Skin: No: Rash, Lesions, Jaundice, Bruising, Other Neurological: No: Weakness, Numbness, Incoordination, Change in speech, Confusion, Seizures, Other Allergies: Coded Allergies: Iron (Verified Allergy, Severe, 08/22/24) Codeine (Verified Allergy, Unknown, 08/22/24) Penicillins (Verified Allergy, Unknown, 08/22/24) Medications Current Medications Medications Dose Ordered Sig/Marisol Route Start Time Stop Time Status Last Admin Dose Admin Albuterol 2.5 mg Q4HPRN PRN NEB 10/05/24 23:00 UNV Ipratropium [place] 0.5 mg Q4HPRN PRN NEB 10/05/24 23:00 UNV Losartan Potassium 50 mg DAILY PO 10/06/24 10:00 UNV Sertraline HCl 100 mg DAILY PO 10/06/24 10:00 UNV Hydralazine HCl 10 mg Q6HP PRN IV 10/05/24 23:00 UNV Sodium Chloride 1,000 ml @ 60 mls/hr [id number] IV 10/05/24 23:00 UNV Ondansetron HCl 4 mg Q4HP PRN IV 10/05/24 23:00 UNV Docusate Sodium 100 mg BIDPRN PRN PO 10/05/24 23:00 UNV Acetaminophen 650 mg Q6HP PRN PO 10/05/24 23:00 UNV Nitroglycerin 0.4 mg Q5MINP PRN SL 10/05/24 23:00 UNV Morphine Sulfate 2 mg Q30M PRN IV 10/05/24 23:00 UNV Exam Vital Signs Vital Signs Date Time Temp Pulse Resp B/P (MAP) Pulse Ox O2 Delivery O2 Flow Rate FiO2 10/05/24 21:33 98.8 97 20 137/85 (102) 97 98.8 General Appearance: Alert, Oriented X3, Cooperative, No acute distress HEENT: Atraumatic, PERRLA, EOMI, Mucous membr. moist/pink Respiratory: Normal air movement, Other (Diminished breath sounds) Cardiovascular: Regular rate, Normal S1, Normal S2, No murmurs Abdominal: Normal bowel sounds, Soft, No tenderness, No hepatospenomegaly, No masses Extremities: No clubbing, No cyanosis, No edema, Normal pulses, No tenderness/swelling Skin: No rashes, No breakdown, No significant lesion Neuro: Normal gait, Normal speech, Strength at 5/5 X4 ext, Normal tone, Sensation intact, Cranial nerves 3-12 NL Psych/Mental Status: Mental status NL, Mood NL Labs/Xrays Laboratory data results pending Assessment/Plan Assessment/Plan Acute respiratory distress Emphysema of right pleural space Plan 1. Admit to telemetry unit 2. Breathing treatment 3. Pain control management 4. Management of fluids and electrolytes 5. Consultation for pulmonology 6. Diagnostic tests chest x-ray 7. DVT prophylaxis-on SCDs 8. Repeat labs CBC, CMP in a.m. 9. Continue with current medical management 10. Treatment plan discussed with patient and RN. Patient verbalized understanding. Plan discussed with: Patient, Other (RN) My Orders Orders - LUCIUS BLOOM DNP Procedure Category Date Status Time Albuterol Medneb PHA 10/05/24 Logged (Ventolin Medneb) 23:00 Ipratropium Medneb PHA 10/05/24 Logged (Atrovent Medneb) 23:00 Losartan Tablet PHA 10/06/24 Logged (Cozaar Tablet) 10:00 Sertraline Hcl PHA 10/06/24 Logged (Zoloft) 10:00 Chest 2v With Apical XY 10/05/24 Logged 22:55 Complete Blood Count LAB 10/05/24 Logged 22:55 Comprehensive LAB 10/05/24 Logged Metabolic Panel 22:55 *Consult CONS 10/05/24 Transmitted / 22:55 Hydralazine Injection PHA 10/05/24 Logged (Apresoline Inject 23:00 Admit ADMIT 10/05/24 Transmitted 22:55 Allergies GAB 10/05/24 In Process 22:55 Code Status CODE 10/05/24 Transmitted 22:55 Sodium Chloride 0.9% PHA 10/05/24 Logged 23:00 Oxygen Per Hour RT 10/05/24 Transmitted 22:55 Ondansetron Hcl PHA 10/05/24 Logged (Zofran) 23:00 Docusate Sodium PHA 10/05/24 Logged Capsule (Colace 23:00 Complete Blood Count LAB 10/06/24 Verified 04:00 Comprehensive LAB 10/06/24 Verified Metabolic Panel 04:00 Cardiac DIET 10/06/24 Transmitted Diet-2gna,Lofat,Lochol Breakfast Condition: Serious [facility] 10/05/24 In Process 22:55 Acetaminophen Tablet [facility] 10/05/24 Logged (Tylenol Tablet) 23:00 Bedrest With Bathroom [facility] 10/05/24 In Process Privileg 22:55 Nitroglycerin [facility] 10/05/24 Logged Sublingual (Ntrostat 23:00 Morphine Sulfate [facility] 10/05/24 Logged Injection 23:00 Notify Md Of Changes [facility] 10/05/24 In Process From Base 22:55 Wat[employer] For [facility] 10/05/24 In Process 24 Hours 22:55 Emergency Dysrhythmia [facility] 10/05/24 In Process Protocol 22:55 Rhythm Strips Once [facility] 10/05/24 In Process Every Shift 22:55 Oxygen By Nasal 10/05/24 Transmitted Cannula 22:55 Problem List: (1) Empyema (2) Acute respiratory distress Date of Service: Oct 05, 2024 Billing Provider: LUCIUS BLOOM DNP Common Visit Codes: [id number] INP/OBS CARE (HIGH) LUCIUS BLOOM DNP Oct 05, 2024 23:18
[2024-10-05 23:47] LABS: Basophils # (auto) 0 10 ^3/uL (0-0.2); Basophils % (auto) 0.7 % (0.0-2.0); Eosinophils # (auto) 0.1 10 ^3/uL (0-0.8); Eosinophils % (auto) 0.9 % (0.0-7.0); Hematocrit 38.4 % (41.0-53.0); Mean Corpuscular Hemoglobin 27.8 pg (28.0-32.0); Mean Corpuscular Hgb Conc. 33.9 g/dL (32.0-36.0); Mean Corpuscular Volume 82.1 fL (80.0-100.0); Monocytes # (auto) 0.6 10 ^3/uL (0-1.3); Monocytes % (auto) 8.1 % (0.0-12.0); Neutrophils # (auto) 4.2 10 ^3/uL (1.6-8.6); Neutrophils % (auto) 61.3 % (37.0-80.0); Nucleated Red Blood Cells % 0.1 %; Platelet Count (auto) 295 10^3/uL (140-450); Red Blood Cells 4.68 10^6/uL (4.5-5.90); Red Cell Distribution Width 15.6 % (11.8-14.3); White Blood Cell 6.9 10^3/uL (4.4-10.8)
[2024-10-06] VITALS (13 sets, daily range): BP systolic 117–139; BP diastolic 72–92; PULSE 73–87; RESP 18–20; TEMP 97.3–98.7; O2SAT 94–99
[2024-10-06 00:08] LABS: Alanine Aminotransferase 16 U/L (7-40); Albumin 4.6 g/dL (3.2-4.8); Anion Gap 9 (5-15); BUN/Creatinine Ratio 12.1 (10.0-20.0); Bilirubin, Total 0.5 mg/dL (0.2-1.0); Blood Urea Nitrogen 15 mg/dL (9-23); Carbon Dioxide 24 mmol/L (20-31); Chloride 103 mmol/L (98-107); Potassium 3.9 mmol/L (3.5-5.1); Sodium 136 mmol/L (136-145); Total Protein 7.7 g/dL (5.7-8.2)
[2024-10-06 00:10] LABS: Alkaline Phosphatase 140 U/L (46-116); Aspartate Aminotransferase 11 U/L (13-40); Calcium 10.4 mg/dL (8.7-10.4); Glucose 115 mg/dL (74-106)
--- NOTE | 2024-10-06 00:11 | DVH ---
CHEST RADIOGRAPH Indication: Pleural effusion Technique: Single frontal view of the chest was obtained COMPARISON: XY CHEST PORTABLE on DOS: 09/06/24, XY CHEST PORTABLE on DOS: 09/05/24, XY CHEST PORTABLE o n DOS: 09/02/24, XY CHEST PORTABLE on DOS: 09/01/24, XY CHEST PORTABLE on DOS: 08/31/24 FINDINGS: Lines and Tubes: None Lungs: Stable right-sided opacities. Pleura: Stable questionable trace right effusion. No pneumothorax. Cardiomediastinal contours: Unremarkable Bones: Unremarkable IMPRESSION: 1. Stable right-sided opacities. 2. Stable questionable trace right effusion.
[2024-10-06] MEDS: SODIUM CHLORIDE 0.9% 1,000 ML IV SCH (00:39)
[2024-10-06 06:59] LABS: Basophils # (auto) 0 10 ^3/uL (0-0.2); Basophils % (auto) 0.4 % (0.0-2.0); Eosinophils # (auto) 0.1 10 ^3/uL (0-0.8); Eosinophils % (auto) 1.7 % (0.0-7.0); Hematocrit 36.2 % (41.0-53.0); Hemoglobin 11.8 g/dL (13.5-17.5); Lymphocytes # (auto) 1.9 10 ^3/uL (0.4-5.4); Mean Corpuscular Hemoglobin 27.2 pg (28.0-32.0); Mean Corpuscular Hgb Conc. 32.7 g/dL (32.0-36.0); Mean Corpuscular Volume 83.2 fL (80.0-100.0); Monocytes # (auto) 0.6 10 ^3/uL (0-1.3); Neutrophils # (auto) 2.8 10 ^3/uL (1.6-8.6); Neutrophils % (auto) 51.9 % (37.0-80.0); Nucleated Red Blood Cells % 0.1 %; Platelet Count (auto) 250 10^3/uL (140-450); Red Blood Cells 4.35 10^6/uL (4.5-5.90); Red Cell Distribution Width 15.9 % (11.8-14.3); White Blood Cell 5.5 10^3/uL (4.4-10.8)
[2024-10-06 07:03] LABS: Alanine Aminotransferase 15 U/L (7-40); Albumin 4.1 g/dL (3.2-4.8); Anion Gap 9 (5-15); BUN/Creatinine Ratio 14.4 (10.0-20.0); Bilirubin, Total 0.4 mg/dL (0.2-1.0); Blood Urea Nitrogen 17 mg/dL (9-23); Calcium 9.6 mg/dL (8.7-10.4); Carbon Dioxide 24 mmol/L (20-31); Chloride 105 mmol/L (98-107); Glucose 83 mg/dL (74-106); Potassium 3.8 mmol/L (3.5-5.1); Sodium 138 mmol/L (136-145); Total Protein 6.8 g/dL (5.7-8.2)
[2024-10-06 07:05] LABS: Alkaline Phosphatase 125 U/L (46-116); Aspartate Aminotransferase 9 U/L (13-40)
[2024-10-06] MEDS: LOSARTAN POTASSIUM 50 MG TAB PO SCH (09:53)
[2024-10-06] MEDS: SERTRALINE HCL 50 MG TAB PO SCH (09:53)
--- NOTE | 2024-10-06 13:25 | DVHPN2 ---
Reviewed: Care Plan, H&P, Labs, Medications, Previous Orders, Radiology Changes from previous H/P or p: No Changes Eyes: No Pain, No Vision change, No Conjunctivae inflammation, No Eyelid inflammation, No Other, No Redness ENT: No Ear pain, No Ear discharge, No Nose pain, No Nose discharge, No Nose congestion, No Mouth pain, No Mouth swelling, No Throat pain, No Throat swelling, No Other Cardiovascular: Chest Pain; No Palpitations, No Orthopnea, No Paroxysmal Noc. Dyspnea, No Edema, No Lt Headedness, No Other Respiratory: No Cough, No Dry; Shortness of breath, SOB with excertion; No Wheezing, No Hemoptysis, No Pleuritic Pain, No Sputum; Other (SOB at rest) Gastrointestinal: No Nausea, No Vomiting, No Abdominal Pain, No Diarrhea, No Constipation, No Melena, No Hematochezia, No Other Genitourinary: No Dysuria, No Frequency, No Incontinence, No Hematuria, No Retention, No Other Musculoskeletal: No other, No neck pain, No shoulder pain, No arm pain, No back pain, No hand pain, No leg pain, No foot pain Skin: No Rash, No Lesions, No Jaundice, No Bruising, No Other Objective Vitals Vital Signs Date Time Temp Pulse Resp B/P (MAP) Pulse Ox O2 Delivery O2 Flow Rate FiO2 10/06/24 10:00 96 Room Air 0.0 10/06/24 10:00 21 10/06/24 09:53 139/90 10/06/24 09:00 97.5 86 20 97.5 Intake/Output Intake and Output 10/06/24 07:00 Intake Total 800 ml Balance 800 ml Intake Oral 800 ml # Voids 1 Medications Current Medications Medications Dose Ordered Sig/Marisol Route Start Time Stop Time Status Last Admin Dose Admin Albuterol 2.5 mg Q4HPRN PRN NEB 10/05/24 23:00 Ipratropium [place] 0.5 mg Q4HPRN PRN NEB 10/05/24 23:00 Losartan Potassium 50 mg DAILY PO 10/06/24 10:00 10/06/24 09:53 50 MG Sertraline HCl 100 mg DAILY PO 10/06/24 10:00 10/06/24 09:53 100 MG Hydralazine HCl 10 mg Q6HP PRN IV 10/05/24 23:00 Sodium Chloride 1,000 ml @ 60 mls/hr [id number] IV 10/05/24 23:00 10/06/24 00:39 60 MLS/HR Ondansetron HCl 4 mg Q4HP PRN IV 10/05/24 23:00 Docusate Sodium 100 mg BIDPRN PRN PO 10/05/24 23:00 Acetaminophen 650 mg Q6HP PRN PO 10/05/24 23:00 Nitroglycerin 0.4 mg Q5MINP PRN SL 10/05/24 23:00 Morphine Sulfate 2 mg Q30M PRN IV 10/05/24 23:00 Laboratory Results Laboratory Tests 10/06/24 05:01 Chemistry Test 10/05/24 23:34 10/06/24 05:01 Albumin 4.6 g/dL (3.2-4.8) 4.1 g/dL (3.2-4.8) Calcium Level 10.4 mg/dL (8.7-10.4) 9.6 mg/dL (8.7-10.4) Total Protein 7.7 g/dL (5.7-8.2) 6.8 g/dL (5.7-8.2) LFT Test 10/05/24 23:34 10/06/24 05:01 Alanine Aminotransferase (ALT) 16 U/L (7-40) 15 U/L (7-40) Alkaline Phosphatase 140 U/L (46-116) H 125 U/L (46-116) H Aspartate Amino Transferase (AST) 11 U/L (13-40) L 9 U/L (13-40) L Total Bilirubin 0.5 mg/dL (0.2-1.0) 0.4 mg/dL (0.2-1.0) Labs and/or images reviewed: Labs reviewed by me, Image(s) reviewed by me Assessment/Plan Assessment/Plan Transferred from [facility] Acute respiratory failure: Oxygen by nasal cannula Right-sided pneumonia with a possible pleural effusion: Levaquin consult for Dr. Vega Depression History of kidney stones Hypertension ADHD Hard of hearing GERD Time spent 55 minutes Condition guarded Plan discussed with: Patient My Orders Orders - SADE DIAZ MD Procedure Category Date Status Time *Consult CONS 10/06/24 Transmitted / 13:20 Levofloxacin Levaquin PHA 10/07/24 Transmitted 10:00 Levofloxacin Levaquin PHA 10/06/24 Transmitted 13:30 Date of Service: Oct 06, 2024 Billing Provider: SADE DIAZ MD Common Visit Codes: [id number] INP/OBS CARE(HIGH) SADE DIAZ MD Oct 06, 2024 13:25
[2024-10-06] MEDS: levoFLOXacin 500MG 100 ML IV ONE (15:04)
--- NOTE | 2024-10-06 16:54 | DVHINCON2 ---
Date of service: Oct 06, [address] Wisam Diggs Reason for Consultation Left pleural effusion History of Present Illness 44-year-old man history of GERD, depression, nephrolithiasis, hypertension, insomnia, ADHD, migraines, low back pain, hearing loss of both ears who presented with a chief complaint of shortness of breath. His shortness of breath became worse and was associated with chest pain. He notes shortness breath at rest and with ambulation. Prom[place] He was sent here from [facility] for further evaluation. Chest x-ray demonstrates possible right pleural effusion. Pulmonary consultation is called for evaluation. Review of systems: 14 point review of systems is negative unless otherwise noted above. Past medical history: GERD, depression, nephrolithiasis, hypertension, insomnia, ADHD, migraines, low back pain, hearing loss of both ears Past surgical history: Left knee surgery, shrapnel removal, vasectomy Medications: Reviewed Allergies: No known drug allergies. Family history: No family history of premature CAD. No family history of lung disease. Social history: Nonsmoker. No alcohol or illicit drug use. Lives at home with family. Family History: FH: cancer G8 MOTHER G8 FATHER FH: heart disease G8 MOTHER FH: lung cancer G8 FATHER Allergies: Coded Allergies: Iron (Verified Allergy, Severe, 08/22/24) Codeine (Verified Allergy, Unknown, 08/22/24) Penicillins (Verified Allergy, Unknown, 08/22/24) Home Meds Active Scripts Hydrocodone-Acetaminophen (Hydrocodone Bitartrate/AC 5-325 mg) 1 Tab Tab, 1 TAB PO Q6HPRN PRN, #30 TAB Prov:FARNK OROZCO MD 09/07/24 Reported Medications Methocarbamol (Methocarbamol) 500 Mg Tab, 500 MG PO, TAB 10/05/24 Trazodone Hcl (Trazodone Hcl) 50 Mg Tab, 50 MG PO, MG 10/05/24 Celecoxib (Celebrex) 100 Mg Cap, 100 MG PO PRN for 30 Days, MG 08/23/24 Sertraline HCl (Sertraline Hydrochloride) 100 Mg Tab, 100 MG PO DAILY, TAB 08/23/24 Amphetamine-Dextroamphetamine (Adderall) 20 Mg Tab, 1 TAB PO DAILY, #30 TAB 08/23/24 Losartan Potassium (Losartan Potassium) 50 Mg Tab, 50 MG PO DAILY for 30 Days, MG 08/23/24 Current Medications Current Medications Medications (Trade) Dose Ordered Sig/Marisol Route PRN Reason Start Time Stop Time Status Last Admin Albuterol (Ventolin Medneb) 2.5 mg Q4HPRN PRN NEB SHORTNESS OF BREATH 10/05/24 23:00 Ipratropium [place] (Atrovent Medneb) 0.5 mg Q4HPRN PRN NEB SHORTNESS OF BREATH 10/05/24 23:00 Losartan Potassium (Cozaar Tablet) 50 mg DAILY PO 10/06/24 10:00 10/06/24 09:53 Sertraline HCl (Zoloft) 100 mg DAILY PO 10/06/24 10:00 10/06/24 09:53 Hydralazine HCl (Apresoline Injection) 10 mg Q6HP PRN IV SBP>150 10/05/24 23:00 Sodium Chloride 1,000 ml @ 60 mls/hr [id number] IV 10/05/24 23:00 10/06/24 00:39 Ondansetron HCl (Zofran) 4 mg Q4HP PRN IV NAUSEA / VOMITING 10/05/24 23:00 Docusate Sodium (Colace Capsule) 100 mg BIDPRN PRN PO FOR CONSTIPATION 10/05/24 23:00 Acetaminophen (Tylenol Tablet) 650 mg Q6HP PRN PO PAIN SCALE 1-3 OR TEMP>100.4 10/05/24 23:00 Nitroglycerin (Ntrostat Sublingual) 0.4 mg Q5MINP PRN SL FOR CHEST PAIN 10/05/24 23:00 Morphine Sulfate 2 mg Q30M PRN IV FOR CHEST PAIN 10/05/24 23:00 Levofloxacin/ Dextrose 100 ml @ 100 mls/hr DAILY IV 10/07/24 10:00 Vital Signs Vital Signs Date Time Temp Pulse Resp B/P (MAP) Pulse Ox O2 Delivery O2 Flow Rate FiO2 10/06/24 13:00 98.3 86 20 117/92 (100) 97 98.3 10/06/24 10:00 Room Air 0.0 10/06/24 10:00 21 Physical Exam Gen.: Patient lying in bed in no apparent distress. He is breathing comfortably on room air. Head: Normocephalic, atraumatic Eyes: EOMI/PERRLA. Ears: Normal hearing. Normal anatomy. Neck/trachea: Trachea midline, supple. Nose: Normal external anatomy. Mouth: Moist mucous membranes. Chest: Decreased air entry in right lower lung field. No wheezing or rhonchi. Cardio vascular: Positive S1, positive S2. Regular rate and rhythm. Abdomen: Positive bowel sounds in all 4 quadrants. Soft, non-tender, non- distended. : Deferred. Rectal: Deferred Skin: Warm, dry. Extremities: 2+ radial pulses bilaterally. No lower extremity edema. Neuro: Awake, alert, oriented x3. No gross motor or sensory deficits. Cranial nerves II through XII intact. Gait not assessed. Labs/Diagnostic Data Labs Test 10/06/24 05:01 Range/Units White Blood Count 5.5 4.4-10.8 10^3/uL Red Blood Count 4.35 L 4.5-5.90 10^6/uL Hemoglobin 11.8 L 13.5-17.5 g/dL Hematocrit 36.2 L 41.0-53.0 % Mean Corpuscular Volume 83.2 80.0-100.0 fL Mean Corpuscular Hemoglobin 27.2 L 28.0-32.0 pg Mean Corpuscular Hemoglobin Concent 32.7 32.0-36.0 g/dL Red Cell Distribution Width 15.9 H 11.8-14.3 % Platelet Count 250 140-450 10^3/uL Mean Platelet Volume 6.2 L 6.9-10.8 fL Neutrophils (%) (Auto) 51.9 37.0-80.0 % Lymphocytes (%) (Auto) 35.0 10.0-50.0 % Monocytes (%) (Auto) 11.0 0.0-12.0 % Eosinophils (%) (Auto) 1.7 0.0-7.0 % Basophils (%) (Auto) 0.4 0.0-2.0 % Neutrophils # (Auto) 2.8 1.6-8.6 10 ^3/uL Lymphocytes # (Auto) 1.9 0.4-5.4 10 ^3/uL Monocytes # (Auto) 0.6 0-1.3 10 ^3/uL Eosinophils # (Auto) 0.1 0-0.8 10 ^3/uL Basophils # (Auto) 0 0-0.2 10 ^3/uL Nucleated Red Blood Cells 0.1 % Sodium Level 138 136-145 mmol/L Potassium Level 3.8 3.5-5.1 mmol/L Chloride Level 105 98-107 mmol/L Carbon Dioxide Level 24 20-31 mmol/L Anion Gap 9 5-15 Blood Urea Nitrogen 17 9-23 mg/dL Creatinine 1.18 0.700-1.30 mg/dL Glomerular Filtration Rate Calc 77 >90 mL/min BUN/Creatinine Ratio 14.4 10.0-20.0 Serum Glucose 83 74-106 mg/dL Calcium Level 9.6 8.7-10.4 mg/dL Total Bilirubin 0.4 0.2-1.0 mg/dL Aspartate Amino Transferase (AST) 9 L 13-40 U/L Alanine Aminotransferase (ALT) 15 7-40 U/L Alkaline Phosphatase 125 H 46-116 U/L Total Protein 6.8 5.7-8.2 g/dL Albumin 4.1 3.2-4.8 g/dL Microbiology Date/Time Source Procedure Growth Status 10/05/24 21:50 Nose MRSA Screen - Final Complete Assessment Impression: Acute hypoxic respiratory failure Right-sided pneumonia Possible right pleural effusion Atelectasis Depression Nephrolithiasis ADHD GERD Plan: Limited chest ultrasound order to evaluate if left pleural effusion present. Incentive spirometry Continue antibiotics Supplemental oxygen Keep O2 saturation above 92%. Bronchodilators as needed D/w RN Claribel, covering RN Fadi. Prognosis: Guarded given multiple comorbidities. Rest of plan per hospitalist and other consultants. Thank you Dr. Wisam Diggs for allowing me to participate in this patient's care. Further recommendations will depend on patient's clinical course. Please do not hesitate to contact me if you have any questions or concerns. This medical document was created using an electronic medical record system with [employer] dictation system. Although this document has been carefully reviewed, there may still be some phonetic and typographical errors. These areas are purely typographical due to imperfections of the software programs, and do not reflect any compromise in the patient's medical care. Plan discussed with: Patient, Other (RN, MD) AMADOU CARRASQUILLO MD Oct 06, 2024 16:54
--- NOTE | 2024-10-06 17:38 | DVH ---
Bilateral Chest Sonogram Date: 10/06/2024 04:54 PM Clinical history: Evaluate if pleural effusion in right lung space Technique: Limited sonographic evaluation of the bilateral chest was performed to evaluate for pleur al effusion. Finding/Impression: Small right pleural effusion. No left pleural effusion is appreciated. HS:Y
[2024-10-07 01:00] VITALS: BP 142/86; PULSE 79; RESP 20; TEMP 98.8; O2SAT 98
[2024-10-07 07:40] VITALS: O2SAT 94
[2024-10-07 08:00] VITALS: PULSE 67
[2024-10-07] MEDS ORDERED: ALBUAER3 IN (08:31)
[2024-10-07] MEDS ORDERED: LEVO500T91 PO (08:31)
--- NOTE | 2024-10-07 08:32 | DVHPN2 ---
Reviewed: Care Plan, H&P, Labs, Medications, Previous Orders, Radiology Changes from previous H/P or p: No Changes Eyes: No Pain, No Vision change, No Conjunctivae inflammation, No Eyelid inflammation, No Other, No Redness ENT: No Ear pain, No Ear discharge, No Nose pain, No Nose discharge, No Nose congestion, No Mouth pain, No Mouth swelling, No Throat pain, No Throat swelling, No Other Cardiovascular: Chest Pain; No Palpitations, No Orthopnea, No Paroxysmal Noc. Dyspnea, No Edema, No Lt Headedness, No Other Respiratory: No Cough, No Dry; Shortness of breath, SOB with excertion; No Wheezing, No Hemoptysis, No Pleuritic Pain, No Sputum; Other (SOB at rest) Gastrointestinal: No Nausea, No Vomiting, No Abdominal Pain, No Diarrhea, No Constipation, No Melena, No Hematochezia, No Other Genitourinary: No Dysuria, No Frequency, No Incontinence, No Hematuria, No Retention, No Other Musculoskeletal: No other, No neck pain, No shoulder pain, No arm pain, No back pain, No hand pain, No leg pain, No foot pain Skin: No Rash, No Lesions, No Jaundice, No Bruising, No Other Objective Vitals Vital Signs Date Time Temp Pulse Resp B/P (MAP) Pulse Ox O2 Delivery O2 Flow Rate FiO2 10/07/24 01:00 98.8 79 20 142/86 (104) 98 98.8 10/06/24 20:00 Room Air* 0 21 Intake/Output Intake and Output 10/07/24 07:00 Intake Total 5500 ml Output Total 1500 ml Balance 4000 ml Intake Oral 4400 ml IV Total 1100 ml Output Urine Total 1500 ml # Voids 2 Medications Current Medications Medications Dose Ordered Sig/Marisol Route Start Time Stop Time Status Last Admin Dose Admin Albuterol 2.5 mg Q4HPRN PRN NEB 10/05/24 23:00 Ipratropium [place] 0.5 mg Q4HPRN PRN NEB 10/05/24 23:00 Losartan Potassium 50 mg DAILY PO 10/06/24 10:00 10/06/24 09:53 50 MG Sertraline HCl 100 mg DAILY PO 10/06/24 10:00 10/06/24 09:53 100 MG Hydralazine HCl 10 mg Q6HP PRN IV 10/05/24 23:00 Sodium Chloride 1,000 ml @ 60 mls/hr [id number] IV 10/05/24 23:00 10/06/24 15:40 60 MLS/HR Ondansetron HCl 4 mg Q4HP PRN IV 10/05/24 23:00 Docusate Sodium 100 mg BIDPRN PRN PO 10/05/24 23:00 Acetaminophen 650 mg Q6HP PRN PO 10/05/24 23:00 Nitroglycerin 0.4 mg Q5MINP PRN SL 10/05/24 23:00 Morphine Sulfate 2 mg Q30M PRN IV 10/05/24 23:00 Levofloxacin/ Dextrose 100 ml @ 100 mls/hr DAILY IV 10/07/24 10:00 Laboratory Results Laboratory Tests 10/06/24 05:01 Microbiology Microbiology Date/Time Source Procedure Growth Status 10/05/24 21:50 Nose MRSA Screen - Final Complete Labs and/or images reviewed: Labs reviewed by me, Image(s) reviewed by me Assessment/Plan Assessment/Plan Transferred from [facility] Acute respiratory failure: Oxygen by nasal cannula Right-sided pneumonia with small right pleural effusion n: Levaquin consult for Dr. Vega appreciated Depression History of kidney stones Hypertension ADHD Hard of hearing GERD Patient feels better and wants to go home Plan discussed with: Patient My Orders Orders - SADE DIAZ MD Procedure Category Date Status Time *Consult CONS 10/06/24 Transmitted / 13:20 Levofloxacin 500mg PHA 10/07/24 In Process (Levaquin 500mg/ 100m 10:00 Date of Service: Oct 07, 2024 Billing Provider: SADE DIAZ MD Common Visit Codes: [id number] INP/OBS CARE(HIGH) SADE DIAZ MD Oct 07, 2024 08:32
--- NOTE | 2024-10-07 08:35 | DVHDS2 ---
Discharge Summary Date of Admission Oct 05, 2024 at 20:25 Date of Discharge: Oct 07, 2024 Admitting Diagnosis Shortness of breaths Wounds: None Labs/Diagnostic Data: Laboratory Results Test 10/06/24 05:01 White Blood Count 5.5 10^3/uL (4.4-10.8) Red Blood Count 4.35 10^6/uL (4.5-5.90) Hemoglobin 11.8 g/dL (13.5-17.5) Hematocrit 36.2 % (41.0-53.0) Mean Corpuscular Volume 83.2 fL (80.0-100.0) Mean Corpuscular Hemoglobin 27.2 pg (28.0-32.0) Mean Corpuscular Hemoglobin Concent 32.7 g/dL (32.0-36.0) Red Cell Distribution Width 15.9 % (11.8-14.3) Platelet Count 250 10^3/uL (140-450) Mean Platelet Volume 6.2 fL (6.9-10.8) Neutrophils (%) (Auto) 51.9 % (37.0-80.0) Lymphocytes (%) (Auto) 35.0 % (10.0-50.0) Monocytes (%) (Auto) 11.0 % (0.0-12.0) Eosinophils (%) (Auto) 1.7 % (0.0-7.0) Basophils (%) (Auto) 0.4 % (0.0-2.0) Neutrophils # (Auto) 2.8 10 ^3/uL (1.6-8.6) Lymphocytes # (Auto) 1.9 10 ^3/uL (0.4-5.4) Monocytes # (Auto) 0.6 10 ^3/uL (0-1.3) Eosinophils # (Auto) 0.1 10 ^3/uL (0-0.8) Basophils # (Auto) 0 10 ^3/uL (0-0.2) Nucleated Red Blood Cells 0.1 % Sodium Level 138 mmol/L (136-145) Potassium Level 3.8 mmol/L (3.5-5.1) Chloride Level 105 mmol/L (98-107) Carbon Dioxide Level 24 mmol/L (20-31) Anion Gap 9 (5-15) Blood Urea Nitrogen 17 mg/dL (9-23) Creatinine 1.18 mg/dL (0.700-1.30) Glomerular Filtration Rate Calc 77 mL/min (>90) BUN/Creatinine Ratio 14.4 (10.0-20.0) Serum Glucose 83 mg/dL (74-106) Calcium Level 9.6 mg/dL (8.7-10.4) Total Bilirubin 0.4 mg/dL (0.2-1.0) Aspartate Amino Transferase (AST) 9 U/L (13-40) Alanine Aminotransferase (ALT) 15 U/L (7-40) Alkaline Phosphatase 125 U/L (46-116) Total Protein 6.8 g/dL (5.7-8.2) Albumin 4.1 g/dL (3.2-4.8) Other Laboratory Tests 10/06/24 05:01 Brief Hx & Hospital Course: 4-year-old male with a history of depression kidney stones hypertension 78 HE GERD recent admission in this hospital for right-sided pneumonia and pleural effusion and decortication of the right lung came in transferred from [facility] for shortness of breaths. Chest x-ray showed right-sided pneumonia . Treated with the Levaquin. Ultrasound of the chest showed minimal right pleural effusion at the time of discharge patient is on room air afebrile stable vital signs seen by pulmonology Dr. Vega. And patient requesting to be discharged home. Discharged home on Levaquin and Ventolin MDI. He will continue all his previous home meds and follow up with his [facility] Dr. Consults/Reason for consult Pulmonary Dr. Vega Operations or Procedures Chest ultrasound Condition at Discharge: Fair Final Diagnosis/Problems List Transferred from [facility] Acute respiratory failure: Oxygen by nasal cannula Right-sided pneumonia with small right pleural effusion n: Levaquin consult for Dr. Vega appreciated Depression History of kidney stones Hypertension ADHD Hard of hearing GERD Discharge Disposition: Home Discharge Instruct/Medications Diet: Regular Activity: Light activity Follow Up/Referral: Resume all previous home medications Follow up with your Dr at the [facility] Medications: Levaquin Ventolin MDI Transmitted to [facility] [id number] [place] [phone] (Time taken for discharge summary 35 minutes) Discharge Statement: "Patient was advised to return to the ER or call 911 if any headaches, dizziness, shortness of breath, chest pain, abdominal pain, bleeding, fevers, or worsening of medical condition. Patient was counseled about treatment plan, medications, possible side effects, patientverbalized understanding. All questions were answered to the best of my ability. This discharge took greater then 30 minutes in planning, reviewing documentation, counseling the patient, and discussing with other team members." ASSESSMENT ASSESSMENT Hospital Course Improved Assessment Transferred from [facility] Acute respiratory failure: Oxygen by nasal cannula Right-sided pneumonia with small right pleural effusion n: Levaquin consult for Dr. Vega appreciated Depression History of kidney stones Hypertension ADHD Hard of hearing GERD Date of Service: Oct 07, 2024 Billing Provider: SADE DIAZ MD Common Visit Codes: 71597-YVJ/OBS DISCH DAY >30min SADE DIAZ MD Oct 07, 2024 08:35
[2024-10-07 09:00] VITALS: BP 128/84; PULSE 70; RESP 20; TEMP 98; O2SAT 97
[2024-10-07] MEDS: levoFLOXacin 500MG 100 ML IV SCH (09:25)
[2024-10-07 10:00] VITALS: O2SAT 97
[2024-10-07 11:13] VITALS: BP 128/84; TEMP 36.7
--- NOTE | 2024-10-07 21:31 | DVHPN2 ---
Progress Note - Dictate Date Seen: Oct 07, 2024 Medical Necessity Reason Pt with a Central, PICC or Fol: No Subjective Patient seen and examined at bedside. Breathing comfortably on room air. Overnight events reviewed. vital signs Vital Sign Date Time Temp Pulse Resp B/P (MAP) Pulse Ox O2 Delivery O2 Flow Rate FiO2 10/07/24 11:13 36.7 10/07/24 10:00 97 Room Air* 0 21 10/07/24 09:24 128/84 10/07/24 09:00 70 20 Total Intake and Output 10/06/24 10/06/24 10/07/24 15:00 23:00 07:00 Intake Total 4700 ml 800 ml Output Total 1500 ml Balance 3200 ml 800 ml objective Gen.: Patient lying in bed in no apparent distress. Breathing on room air. Head: Normocephalic, atraumatic. Eyes: EOMI/PERRLA. Ears: Normal hearing. Normal anatomy. Neck/trachea: Trachea midline, supple. Nose: Normal external anatomy. Mouth: Moist mucous membranes. Chest: Decreased air entry bilaterally. No wheezing or rhonchi. Cardiovascular: Positive S1, positive S2. Regular rate and rhythm. Abdomen: Positive bowel sounds in all 4 quadrants. Soft, non-tender, non- distended. : Deferred. Rectal: Deferred. Skin: Warm, dry. Intact. Extremities: 2+ radial pulses bilaterally. No lower extremity edema. Neuro: Awake, alert, oriented x3. No gross motor or sensory deficits. Cranial nerves II through XII intact. Gait not assessed. laboratory and microbiology Laboratory Tests 10/06/24 05:01 Test 10/06/24 05:01 Range/Units Serum Glucose 83 74-106 mg/dL Assessment/Plan Impression: Acute hypoxic respiratory failure Right-sided pneumonia Possible right pleural effusion Atelectasis Depression Nephrolithiasis ADHD GERD Events: Breathing on room air No respiratory distress. Chest ultrasound notable for small right pleural effusion and atelectasis Incentive spirometry Continue antibiotics WBC within normal limits. Labs and imaging reviewed. Rest of plan as noted below. Plan: Supplemental oxygen PRN Keep O2 saturation above 92%. Incentive spirometry Continue antibiotics Bronchodilators as needed Prognosis: Guarded given multiple comorbidities. Rest of plan per hospitalist and other consultants. Thank you Dr. Wisam Diggs for allowing me to participate in this patient's care. Further recommendations will depend on patient's clinical course. Please do not hesitate to contact me if you have any questions or concerns. This medical document was created using an electronic medical record system with [employer] dictation system. Although this document has been carefully reviewed, there may still be some phonetic and typographical errors. These areas are purely typographical due to imperfections of the software programs, and do not reflect any compromise in the patient's medical care. Plan discussed with: Patient, Other (RN) AMADOU CARRASQUILLO MD Oct 07, 2024 21:31
[2024-10-09 09:23] LABS: Hepatitis B Surface Antigen Negative (Negative)
[2024-10-09 09:44] LABS: Hepatitis C Antibody Negative (Negative)
== END 2024-10-07 12:05 | disposition home or self-care (01) | DRG 189 ==
LOC: EAST 20:25 → TELE-EAST 10-06 00:55
PROVIDERS: ADMIT Internal Medicine; ATTEND Family Medicine
DX: J96.01 Acute respiratory failure with hypoxia (principal); J18.9 Pneumonia, unspecified organism; J98.11 Atelectasis; J90 Pleural effusion, not elsewhere classified; I10 Essential (primary) hypertension; K21.9 Gastro-esophageal reflux disease without esophagitis; F32.A Depression, unspecified; G47.00 Insomnia, unspecified; F90.9 Attention-deficit hyperactivity disorder, unspecified type; G43.909 Migraine, unspecified, not intractable, without status migrainosus; J43.9 Emphysema, unspecified; N20.0 Calculus of kidney; H91.93 Unspecified hearing loss, bilateral; Z87.442 Personal history of urinary calculi; Z80.1 Family history of malignant neoplasm of trachea, bronchus and lung; Z88.0 Allergy status to penicillin; Z88.5 Allergy status to narcotic agent
CPT/HCPCS: 36415; 71045; 76604; 80053; 85025; 86803; 87081; 87340; G0378; J1956